=== PATIENT | female | born 1950 | race Caucasian/White ===

== ENCOUNTER 2016-09-09 13:11 | Emergency (ER) | payer OTHER, MEDICARE ==
[~2016-09-09] VITALS: Ht 162.6 cm; Wt 80.3 kg
[~2016-09-09 13:11] MED LIST: AUBAGIO14 MG PO; CIPRO750 MG PO; ELIQUIS5 MG PO; LAMOTRIGINE200 MG PO; LEVOTHYROXIN0.137 MG PO; LITHIUM CARBON150 MG PO; LITHIUM CARBON300 M3 PO; LITHIUM CARBON300 MG PO; MIRALAX17 GM PO; MYCOSTATIN POWD15 GM TOP; PILOCARPINE HCL15 M1 OP; QUETIAPINE FUM100 MG PO; Senokot S PO
--- NOTE | 2016-09-09 15:21 | ED GENERAL ADULT ---
History of Present Illness General Chief Complaint: General Adult Stated Complaint: NAUSEA, SENT BY DR HALL FOR IV FLUIDS Source: patient, old records Exam Limitations: no limitations Allergies Coded Allergies: rituximab (From RITUXAN) (Intermediate, ANAPHYLAXIS 09/09/16) methylprednisolone (PER PT CANT TAKE MAKES HER MANIC 09/09/16) prednisone (PER PT CANT TAKE MAKES HER MANIC 09/09/16) Uncoded Allergies: STEROIDS (Intermediate, "MAKE ME MANIC" PER PT CAN NOT TAKE ANY STEROIDS ) Triage Note: TRIAGE: PT TO ER C/C SENT BY DR STACY HALL FOR EVAL R/T S/S OF CONFUSION AND BLURRY VISION. REPORTS HAD LITHIUM LEVELS CHECKED OUTPATIENT THROUGH [facility] AND LEVEL WAS 1.6. Triage Nurses Notes Reviewed? yes HPI: Patient is a 66 year old female sent in from by her psychiatrist for evaluation of elevated [place] level. Patient had blood work this morning which showed a lithium level of 1.6 and a creatinine of 1.6. Patient was sent to the emergency department for further evaluation. Patient reports she has been taking her lithium as directed. For the past one month patient has been feeling some generalized malaise and intermittent headaches. Patient has been eating and drinking normal. Positive depression, no suicidal ideation. Denies chest pain, difficulty breathing, nausea, vomiting, diarrhea (MELLO ARROYO) Vital Signs & Intake/Output Vital Signs & Intake/Output Vital Signs Date Time Temp Pulse Resp B/P Pulse O2 O2 Flow FiO2 Ox Delivery Rate 09/09 1815 99 09/09 1720 97.2 69 16 157/80 99 Room Air 09/09 1539 97.3 70 20 146/76 100 Room Air 09/09 1324 98.4 67 20 135/86 99 Room Air Reconcile Medications Apixaban (Eliquis) 5 MG TABLET 1 TAB PO BID BLOOD THINNER (Reported) Calcitriol 0.25 MCG CAPSULE 2 CAP PO BID VITAMIN D (Reported) Ergocalciferol (Vitamin D2) (Vitamin D2) 50,000 UNIT CAPSULE 1 CAP PO QTUES SUPPLEMENT (Reported) Lamotrigine 200 MG TABLET 1 TAB PO QHS MENTAL HEALTH (Reported) Levothyroxine Sodium 125 MCG TABLET 1 TAB PO DAILY THYROID (Reported) [place] Carbonate 150 MG CAPSULE 1 CAP PO QPM MENTAL HEALTH (Reported) [place] Carbonate 300 MG CAPSULE 600 MG PO QPM MENTAL HEALTH (Reported) Pilocarpine HCl 2 % DROPS 1 DROP OD TID RIGHT EYE - GLAUCOMA (Reported) Quetiapine Fumarate 100 MG TABLET 1 TAB PO QPM SLEEP/MENTAL HEALTH (Reported) (ELÍAS CESAR,SADIQ Salazar) Past History Travel History Traveled to [place] past 21 day No Medical History Any Pertinent Medical History? 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 History of MRSA: No History of VRE: No History of CDIFF: No Surgical History Surgical History: appendectomy, status post right talar bunionectomy and hammertoe correction of the right second toe 3 years prior to admission hip surgery Psychosocial History Who do you live with Spouse Services at Home None What is your primary language Monegasque Tobacco Use: Quit >30 days ago ETOH Use: occasional use Illicit Drug Use: denies illicit drug use Family History Family History, If Any: BROTHER FH myocardial infarction male first degree age known MOTHER FH: diabetes mellitus SISTER FH: leukemia SISTER Hx Contributory? No (MELLO ARROYO) Review of Systems Review of Systems Constitutional: Reports: malaise (x 1 month). Denies: chills, fever. EENTM: Reports: no symptoms. Respiratory: Denies: cough, short of breath. Cardiovascular: Denies: chest pain. GI: Reports: no symptoms. Genitourinary: Reports: no symptoms. Musculoskeletal: Denies: back pain, neck pain. Skin: Reports: no symptoms. Neurological/Psychological: Reports: headache. Hematologic/Endocrine: Denies: bruising, bleeding. Immunologic/Allergic: Denies: splenectomy. (MELLO ARROYO) Physical Exam Physical Exam General Appearance: well developed/nourished, alert, awake Head: atraumatic, normal appearance Eyes: Bilateral: normal appearance, PERRL, EOMI. Ears, Nose, Throat: normal pharynx, normal ENT inspection, hearing grossly normal Neck: normal inspection, supple, full range of motion Respiratory: normal breath sounds, chest non-tender, no respiratory distress, lungs clear Cardiovascular: regular rate/rhythm Gastrointestinal: soft, non-tender Back: normal inspection, normal range of motion Extremities: normal inspection, normal capillary refill, normal range of motion, no edema Neurologic/Psych: awake, alert, oriented x 3, flat affect, no suicidal ideation Skin: intact, normal color, warm/dry Lymphatic: no anterior cervical fermin Core Measures ACS in differential dx? No CVA/TIA Diagnosis: No Severe Sepsis Present: No Septic Shock Present: No (MELLO ARROYO) Progress Differential Diagnoses I considered the following diagnoses in my evaluation of the patient: [place] toxicity, acute kidney injury, electrolyte abnormality Initial ED EKG: none (MELLO ARROYO) Plan of Care: Orders Procedure Date/time Status Regular Diet 09/09 D Active EKG 09/09 1730 Active URINALYSIS 09/09 1455 Complete LITHIUM 09/09 1443 Complete COMPREHENSIVE METABOLIC PANEL 09/09 1443 Complete CBC WITHOUT DIFFERENTIAL 09/09 1443 Complete Laboratory Tests 09/09/16 1706: Anion Gap 9, Estimated GFR 35 L, BUN/Creatinine Ratio 15.3, Glucose 79, Calcium 10.0, Total Bilirubin 0.6, AST 27, ALT 27, Alkaline Phosphatase 64, Total Protein 7.6, Albumin 4.2, Globulin 3.4, Albumin/Globulin Ratio 1.2, [place] 1.4 *H 09/09/16 1605: CBC w Diff NO MAN DIFF REQ, RBC 3.89 L, MCV 88.9, MCH 29.6, RDW 14.9 H, MPV 9.7, Gran % 62.2, Lymphocytes % 23.9, Monocytes % 8.4, Eosinophils % 4.7, Basophils % 0.8, Absolute Granulocytes 4.3, Absolute Lymphocytes 1.6, Absolute Monocytes 0.6, Absolute Eosinophils 0.3, Absolute Basophils 0.1, PUBS MCHC 33.3 09/09/16 1517: Urine Color YEL, Urine Clarity CLEAR, Urine pH 7.0, Ur Specific [place] <= 1.005 , Urine Protein NEG, Urine Ketones NEG, Urine Nitrite NEG, Urine Bilirubin NEG, Urine Urobilinogen 0.2, Ur Leukocyte Esterase TRACE H, Ur Microscopic SEDIMENT EXAMINED, Urine RBC RARE, Urine WBC RARE, Ur Epithelial Cells RARE, Urine Hemoglobin NEG, Urine Glucose NEG Patient had blood work at 7 AM showing lithium level of 1.6 and creatinine of 1.8. Repeat labs performed, lithium level improved to 1.4 and creatinine improved to 1.5. Patient was discussed with and seen by Dr. Odonnell. Patient appears stable for discharge. Patient instructed to not take her lithium this evening and to contact her psychiatrist tomorrow for further dosing instructions. Patient also instructed to follow-up with her primary care doctor for further evaluation. (MELLO ARROYO) Departure Departure Disposition: HOME OR SELF CARE Condition: Stable Clinical Impression Primary Impression: Acute kidney injury Secondary Impressions: [place] toxicity Referrals: MELLO NORTON MD (PCP/Family) Additional Instructions: Follow-up with your primary care doctor and your psychiatrist for further evaluation. Do not take your dose of lithium this evening. Contact your psychiatrist tomorrow morning for further dosing instructions. Call your primary doctor tomorrow to be seen within one week for further evaluation. Return to the emergency department if any worsening of symptoms. Departure Forms: Customer Survey General Discharge Information (MELLO ARROYO) PA/FLAME PLANER Co-Sign Statement Statement: ED Attending supervision documentation- [x] I saw and evaluated the patient. I have also reviewed all the pertinent lab results and diagnostic results. I agree with the findings and the plan of care as documented in the PA's/FLAME PLANER's documentation. [] I have reviewed the ED Record and agree with the PA's/FLAME PLANER's documentation. [] Additions or exceptions (if any) to the PAs/FLAME PLANER's note and plan are summarized below: [] (ELÍAS CESAR,SADIQ Salazar) Critical Care Note Critical Care Note Critical Care Time: non-applicable (MELLO ARROYO)
[2016-09-09] MEDS ORDERED: LEVOTHYROXINE125 MCG PO (15:35)
[2016-09-09] MEDS ORDERED: CALCITRIOL0.25 MC1 PO (15:36)
[2016-09-09] MEDS ORDERED: VITAMIN D250000 UNIT PO (15:36)
[2016-09-09] MEDS ORDERED: LITHIUM CARBON150 M1 PO (15:37)
[2016-09-09] MEDS ORDERED: LAMOTRIGINE200 M2 PO (15:38)
[2016-09-09] MEDS ORDERED: QUETIAPINE FUM100 M1 PO (15:38)
[2016-09-09] MEDS ORDERED: LITHIUM CARBON300 M4 PO (15:38)
[2016-09-09] MEDS ORDERED: ELIQUIS5 M1 PO (15:39)
[2016-09-09] MEDS ORDERED: PILOCARPINE HCL15 M3 OD (15:46)
[2016-09-09 16:29] LABS: ABSOLUTE BASOPHIL COUNT 0.1 /CUMM (0.0-0.2); ABSOLUTE EOSINOPHIL COUNT 0.3 /CUMM (0.0-0.7); ABSOLUTE GRANULOCYTE CT 4.3 /CUMM (1.4-6.5); ABSOLUTE LYMPH COUNT 1.6 /CUMM (1.2-3.4); ABSOLUTE MONOCYTE COUNT 0.6 /CUMM (0.10-0.60); BASOPHIL % 0.8 % (0.0-2.0); EOSINOPHIL % 4.7 % (0-5); GRANULOCYTE % 62.2 % (42.2-75.2); HEMATOCRIT 34.6 % (37-47); MEAN CORPUSCULAR HGB 29.6 PG (27.0-31.0); MEAN CORPUSCULAR HGB CONC 33.3 G/DL (33.0-37.0); MEAN CORPUSCULAR VOLUME 88.9 FL (81.0-99.0); MEAN PLATELET VOLUME 9.7 FL (7.4-10.4); PLATELET COUNT 367 /CUMM (130-400); RBC DISTRIBUTION WIDTH 14.9 % (11.5-14.5); RED BLOOD CELL CT 3.89 /CUMM (4.20-5.40); WHITE BLOOD CELL COUNT 6.9 /CUMM (4.8-10.8)
[2016-09-09 18:03] LABS: LITHIUM 1.4 mmol/L (0.6-1.2)
[2016-09-09 19:13] VITALS: BP 145/78
== END 2016-09-09 19:46 ==
LOC: ERH 13:11
PROVIDERS: Emergency Medicine
DX: T56.891A Toxic effect of other metals, accidental (unintentional), initial encounter (principal); N17.9 Acute kidney failure, unspecified; E03.9 Hypothyroidism, unspecified
CPT/HCPCS: 36415; 81001; 93325; 96360; 96361

== ENCOUNTER 2016-10-09 10:15 | Inpatient (IN) | payer OTHER, MEDICARE ==
[~2016-10-09] VITALS: Ht 162.6 cm; Wt 78.9 kg
[~2016-10-09 10:15] MED LIST changes: +CALCITRIOL0.25 MC1 PO; +ELIQUIS5 M1 PO; +LAMOTRIGINE200 M2 PO; +LEVOTHYROXINE125 MCG PO; +LITHIUM CARBON150 M1 PO; +LITHIUM CARBON300 M4 PO; +PILOCARPINE HCL15 M3 OD; +QUETIAPINE FUM100 M1 PO; +VITAMIN D250000 UNIT PO
--- NOTE | 2016-10-09 10:20 | NUR ---
JHONY FROM HOME, PER EMS, CALLED 911, CONCERNED ABOUT 'S CHANGE IN MENTAL STATUS, WAS TALKING TO SON'S PICTURE THIS AM. PT IS ALERT, CRYING, HAS SON'S PICTURE WITH HER. STATES SHE WAS JUST PUT ON DEPAKOTE, TAKEN OFF LITHUM DUE TO STAGE 4 KIDNEY DISEASE.
--- NOTE | 2016-10-09 10:21 | NUR ---
C/O PAIN "ALL OVER", STATES SHE IS HAVING AN MS "FLARE UP". THINKS HER SON IS AN ALEKSANDER AND IS TALKING TO HER.
--- NOTE | 2016-10-09 10:29 | NUR ---
REPORTS THAT HIS HAS FALLEN MULTIPLE TIMES IN THE PAST WEEKS. STACY WINSTON ([facility]) IS PT'S COUNSELOR [phone].
--- NOTE | 2016-10-09 10:35 | NUR ---
MD ELÍAS LEE EVAL
--- NOTE | 2016-10-09 11:01 | ED PSYCHIATRIC COMPLAINT ---
History of Present Illness General Chief Complaint: General Adult Stated Complaint: BIBA FOR ?PSYCH ?AMS Source: patient, family Exam Limitations: PSYCHIATRIC CONDITION Vital Signs & Intake/Output Vital Signs & Intake/Output Vital Signs Date Time Temp Pulse Resp B/P Pulse O2 O2 Flow FiO2 Ox Delivery Rate 10/09 1444 97.8 78 18 166/80 96 Room Air 10/09 1320 97.0 84 20 114/71 10/09 1227 97.0 10/09 1128 97.0 78 18 145/77 96 Room Air 10/09 1100 99 Room Air 10/09 1023 96.0 77 18 155/85 98 Room Air 10/09 1022 95.0 81 18 155/85 95 Room Air Allergies Coded Allergies: rituximab (From RITUXAN) (Intermediate, ANAPHYLAXIS 09/09/16) methylprednisolone (PER PT CANT TAKE MAKES HER MANIC 09/09/16) prednisone (PER PT CANT TAKE MAKES HER MANIC 09/09/16) Uncoded Allergies: STEROIDS (Intermediate, "MAKE ME MANIC" PER PT CAN NOT TAKE ANY STEROIDS ) Reconcile Medications Apixaban (Eliquis) 5 MG TABLET 1 TAB PO BID BLOOD THINNER (Reported) Calcitriol 0.25 MCG CAPSULE 2 CAP PO BID VITAMIN D (Reported) Ergocalciferol (Vitamin D2) (Vitamin D2) 50,000 UNIT CAPSULE 1 CAP PO QTUES SUPPLEMENT (Reported) Lamotrigine 200 MG TABLET 1 TAB PO QHS MENTAL HEALTH (Reported) Levothyroxine Sodium 125 MCG TABLET 1 TAB PO DAILY THYROID (Reported) [place] Carbonate 150 MG CAPSULE 1 CAP PO QPM MENTAL HEALTH (Reported) [place] Carbonate 300 MG CAPSULE 600 MG PO QPM MENTAL HEALTH (Reported) Pilocarpine HCl 2 % DROPS 1 DROP OD TID RIGHT EYE - GLAUCOMA (Reported) Quetiapine Fumarate 100 MG TABLET 1 TAB PO QPM SLEEP/MENTAL HEALTH (Reported) Triage Note: BIBA FROM HOME, PER EMS, CALLED 911, CONCERNED ABOUT 'S CHANGE IN MENTAL STATUS, WAS TALKING TO SON'S PICTURE THIS AM. PT IS ALERT, CRYING, HAS SON'S PICTURE WITH HER. Triage Nurses Notes Reviewed? yes HPI: Patient presents for evaluation of altered mental status. The patient states that her symptoms are due to a multiple sclerosis flare up as a result of a fever and cold symptoms last weekend. Although the symptoms of her cold have gotten better she states that she is having an acute MS flare up. She has been having stumbling, weakness, numbness and trouble swallowing. In addition the patient states that she has been taken off of her lithium due to stage IV renal disease and was switched over to Depakote just recently. She states she now feels manic depressed and "up-and-down emotions". It appears that she has also communicating with her son. Her family is primarily concerned about her altered mental status and confusion. The states she is "not herself". Past History Travel History Traveled to [place] past 21 day No Medical History Any Pertinent Medical History? 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 History of MRSA: No History of VRE: No History of CDIFF: No Surgical History Surgical History: appendectomy, status post right talar bunionectomy and hammertoe correction of the right second toe 3 years prior to admission hip surgery PARATHYROID SURGERY Psychosocial History Who do you live with Spouse Services at Home None What is your primary language Greenlandic Tobacco Use: Quit >30 days ago ETOH Use: denies use Illicit Drug Use: denies illicit drug use Family History Family History, If Any: BROTHER FH myocardial infarction male first degree age known MOTHER FH: diabetes mellitus SISTER FH: leukemia SISTER Hx Contributory? No Review of Systems Review of Systems Constitutional: Reports: no symptoms. EENTM: Reports: no symptoms. Respiratory: Reports: no symptoms. Cardiovascular: Reports: no symptoms. GI: Reports: no symptoms. Genitourinary: Reports: no symptoms. Musculoskeletal: Reports: no symptoms. Skin: Reports: no symptoms. Neurological/Psychological: Reports: see HPI. Hematologic/Endocrine: Reports: no symptoms. Immunologic/Allergic: Reports: no symptoms. All Other Systems: Reviewed and Negative Physical Exam Physical Exam General Appearance: SEE BELOW Neurological/Psychiatric: SEE BELOW Comments: General: Alert, calm, inconsistently cooperative, answers questions briskly. Head: Normocephalic, atraumatic Eyes: Normal inspection, no nystagmus, EOMI Ears: Normal inspection Nose: Normal inspection Throat: Moist mucosa Neck: Supple, no goiter Heart: Regular rate and rhythm, no murmurs rubs or gallops Lungs: Clear to auscultation bilaterally with good air entry Abdomen: Soft nontender nondistended, normal bowel sounds Chest: Nontender Extremities: Normal range of motion grossly, no tremors present, no cyanosis clubbing or edema of the upper extremities, weakness of left upper extremity ( patient states she can't grasp with left hand) and bilateral lower extremities ( patient states she is cannot dorsiflex either extremity). Exam limited due to the patient's increasing frustration with examination. Neurologic: cranial nerves II through XII grossly intact, speech clear, gait not assessed Psychiatric: No apparent delusions or hallucinations, no pressured speech or thought blocking During history and physical examination patient became increasingly frustrated stating that Bartolo (her son) felt that her physician (myself) was being rude. She became resistant to evaluation at that point. SAD PERSONS Done? patient not suicidal Progress Differential Diagnosis: BIPOLAR DISORDER, HYPER OR HYPOTHYROIDISM, ELECTROLYTE ABNORMALITY Plan of Care: Orders Procedure Date/time Status Regular Diet 10/09 D Active Admit to inpatient psych 10/09 1611 Active PARATHYROID HORMONE 10/09 1333 Complete URINE DRUG SCREEN FOR ER ONLY 10/09 1228 Complete URINALYSIS 10/09 1228 Complete Add-on Test (ER Only) 10/09 1055 Active Patient Safety Monitor 10/09 1055 Active ED CRISIS PSYCH CONSULT 10/09 1055 Active THYROID STIMULATING HORMONE 10/09 1041 Complete PHOSPHORUS 10/09 1041 Complete MAGNESIUM 10/09 1041 Complete LITHIUM 10/09 1041 Complete FREE T4 10/09 1041 Complete DEPAKOTE LEVEL 10/09 1041 Complete COMPREHENSIVE METABOLIC PANEL 10/09 1041 Complete CBC WITHOUT DIFFERENTIAL 10/09 1041 Complete Laboratory Tests 10/09/16 1441: PTH Intact 14.6 10/09/16 1225: Urine Opiates Screen < 100.00, Methadone Screen < 40, Barbiturate Screen < 60, Ur Phencyclidine Scrn < 6.00, Amphetamines Screen < 100, U Benzodiazepines Scrn < 85, Urine Cocaine Screen < 50, Urine Cannabis Screen < 5.00, Urine Color YEL, Urine Clarity CLEAR, Urine pH 6.5, Ur Specific [place] <= 1.005, Urine Protein NEG, Urine Ketones NEG, Urine Nitrite NEG, Urine Bilirubin NEG, Urine Urobilinogen 0.2, Ur Leukocyte Esterase NEG, Ur Microscopic EXAM NOT REQUIRED, Urine Hemoglobin NEG, Urine Glucose NEG 10/09/16 1041: Anion Gap 11, Estimated GFR 50 L, BUN/Creatinine Ratio 11.8, Glucose 81, Calcium 8.6, Phosphorus 4.3, Magnesium 1.9, Total Bilirubin 0.5, AST 37 H, ALT 39, Alkaline Phosphatase 52, Total Protein 7.0, Albumin 3.9, Globulin 3.1, Albumin/Globulin Ratio 1.3, TSH 0.983, Free T4 1.88, CBC w Diff NO MAN DIFF REQ, RBC 4.28, MCV 86.4, MCH 29.3, RDW 14.1, MPV 9.1, Gran % 54.9, Lymphocytes % 32.3 , Monocytes % 7.5, Eosinophils % 5.0, Basophils % 0.3, Absolute Granulocytes 1.7 , Absolute Lymphocytes 1.0 L, Absolute Monocytes 0.2, Absolute Eosinophils 0.2, Absolute Basophils 0, PUBS MCHC 33.9, Valproic Acid 30.6 L, [place] < 0.2 L Diagnostic Imaging: Discussed w/RAD: Radiology Read. CXR Impression: PATIENT: STACY GIBBS PRESENT AGE: 66 PATIENT ACCOUNT NO: [id number] : 50 LOCATION: [facility] ORDERING PHYSICIAN: SADIQ MCKINLEY MD SERVICE DATE: 10/09/16 EXAM TYPE: RAD - XRY-PORTABLE CHEST XRAY EXAMINATION: XR PORTABLE CHEST CLINICAL INFORMATION: Cough. COMPARISON: 01/10/2015 TECHNIQUE: Portable AP view of the chest was obtained. FINDINGS: Lungs are symmetrically expanded and clear. No pulmonary consolidation or pleural effusion. Cardiac silhouette is normal in size. The mediastinal and hilar contours are normal. No acute skeletal findings. IMPRESSION: No evidence of pneumonia. No acute cardiopulmonary disease. DICTATED BY: JENNIFER RAY MD DATE/TIME DICTATED:10/09/161148 RECRUITING ASSISTANT:DANIELLA DATE/TIME TRANSCRIBED:10/09/161148 CONFIDENTIAL, DO NOT COPY WITHOUT APPROPRIATE AUTHORIZATION. <Electronically signed in Other Vendor System> SIGNED BY: JENNIFER RAY MD 10/09/16 1156 Departure Departure Disposition: STILL A PATIENT Condition: Stable Clinical Impression Primary Impression: Bipolar disorder with psychotic features Referrals: ERROL CESAR,MELLO Parson (PCP/Family) Departure Forms: Customer Survey General Discharge Information Psych Admission Note Psychiatric Admission: I have seen and evaluated STACY GIBBS. I have also reviewed all the pertinent lab results and diagnostic results. STACY GIBBS will be admitted to our inpatient Psychiatric unit for treatment and care.
[2016-10-09 11:06] LABS: ABSOLUTE BASOPHIL COUNT 0 /CUMM (0.0-0.2); ABSOLUTE EOSINOPHIL COUNT 0.2 /CUMM (0.0-0.7); ABSOLUTE GRANULOCYTE CT 1.7 /CUMM (1.4-6.5); ABSOLUTE MONOCYTE COUNT 0.2 /CUMM (0.10-0.60); BASOPHIL % 0.3 % (0.0-2.0); GRANULOCYTE % 54.9 % (42.2-75.2); MEAN CORPUSCULAR HGB 29.3 PG (27.0-31.0); MEAN CORPUSCULAR HGB CONC 33.9 G/DL (33.0-37.0); MEAN CORPUSCULAR VOLUME 86.4 FL (81.0-99.0); MEAN PLATELET VOLUME 9.1 FL (7.4-10.4); RBC DISTRIBUTION WIDTH 14.1 % (11.5-14.5); RED BLOOD CELL CT 4.28 /CUMM (4.20-5.40)
[2016-10-09 11:16] LABS: LITHIUM < 0.2 mmol/L (0.6-1.2)
[2016-10-09 11:19] LABS: PLATELET COUNT 226 /CUMM (130-400); WHITE BLOOD CELL COUNT 3.6 /CUMM (4.8-10.8)
--- NOTE | 2016-10-09 11:23 | NUR ---
PT REQUESTING EVAL FOR "MY COLD". CONGESTED COUGH NOTED. DR MCKINLEY INFORMED OF SAME AND STATES HE WILL ORDER CHEST XRAY
--- NOTE | 2016-10-09 11:24 | NUR ---
LAB CALLED STATING NOT ENOUGH BLOOD IN LAV TO RUN PTH LEVEL DR MCKINLEY INFORMED - NO NEED TO REDRAW TUBE AT THIS TIME
--- NOTE | 2016-10-09 11:49 | NUR ---
XRAY AT THE BEDSIDE
--- NOTE | 2016-10-09 11:56 | RADIOLOGY REPORT ---
EXAMINATION: XR PORTABLE CHEST CLINICAL INFORMATION: Cough. COMPARISON: 01/10/2015 TECHNIQUE: Portable AP view of the chest was obtained. FINDINGS: Lungs are symmetrically expanded and clear. No pulmonary consolidation or pleural effusion. Cardiac silhouette is normal in size. The mediastinal and hilar contours are normal. No acute skeletal findings. IMPRESSION: No evidence of pneumonia. No acute cardiopulmonary disease.
--- NOTE | 2016-10-09 12:05 | NUR ---
PT C/O HEADACHE. DR MCKINLEY INFORMED
--- NOTE | 2016-10-09 12:28 | NUR ---
MEDICATED WITH TYLENOL (SEE MAR)
--- NOTE | 2016-10-09 13:53 | NUR ---
CLEARED FOR CRISIS PER
--- NOTE | 2016-10-09 13:59 | NUR ---
SHEREE DONE PER REQUEST OF CRISIS, RESULT 0, CRISIS INFORMED.
--- NOTE | 2016-10-09 14:39 | ED PSYCH CRISIS CONSULTATION ---
Crisis Consult Basic Assessment Date of Consult: 10/09/16 Responsible Person/Accompanied By: Myke- and Myke - son Insurance Authorization: Insurance #1: Insurance name: MEDICARE A Phone number: Policy number: [id number] Group number: Authorization number: ED Provider: Patient's ED Provider: SADIQ MCKINLEY MD Primary Care Physician: Patient's PCP: MELLO NORTON MD. PCP's Current Psychiatrist: Rand Kilpatrick APRN Chief Complaint: General Adult Patient's Quote: "I am not a crazy person." Present Illness: Pt is 66 yo female BIBA for increase in manic symptoms and responding to internal stimuli ( + AH). She was referred to the ED by her [facility] presciber vie telephone. Pt presented as cooperative and insightful at times into her manic episode during the crisis consultation. As the interview continued pt speech was pressured,tangential and disorganzied ( bizzare content in regards to her son speaking through her). Pt confirms she talks to her son but says this is nothing new. She said that her son was talking to her currently and knows he is sending her signs. Pt requested this telegraphic typewriter mechanic to " just wait you will see a lays potato chip bag on my tray." Pt stated the TV and monitior were turning on and off as this telegraphic typewriter mechanic left the room as a message from her son. She denies suicidal thoughts but discloses she is depressed as the aniversay of her son's was on 10/06. Pt's UTOX was negative for substances and urinalisys was negative for UTI. Pt does not want to be admitted to CPS. This telegraphic typewriter mechanic met face to face with pt's Myke, and son also named Myke: Both and son report their safety concerns for the pt . They stated this is not her baseline and her behaviors are extremely bizzare and out of character. Myke ( ) stated everything has changed since she was taken off [place] and feels the current medications are not keeping her stable. They stated she has progressively gotten worse and don't feel she is safe to return home at this time. Per collateral note with Rand Kilpatrick APRN : AC Gordillo reports recent medication changes due to medical reasons and her recent manic symptoms have been out of character such as carrying around a picture of her son and talking to it. Pt has been responding to internal stimuli while talking to her prescriber over the phone. Per Rand's collateral with the sister: Phone call from sister, Sharon Azul, , there is no release, therefore this telegraphic typewriter mechanic only listened and did not provide information. She reports that client is in a manic episode this morning and she feels that client is hallucinating and in distress. Recommended calling 911 for urgent needs or bringing individual to ED for evaluation. Phone call to client, who gives this telegraphic typewriter mechanic permission to speak to both sister Sharon and [id number]-iaa Courtney. Client is in obvious distress, crying, with quick speech and some tangential thoughts. She reports she is home alone and this is upsetting. She states she wants her son, Myke. She reports that her son, Bartolo is speaking to her, and she verbalizes his words to her on the phone to this telegraphic typewriter mechanic (things such as, "calm down mommy", "tell Rand [this telegraphic typewriter mechanic] what is going on with you momlester"). While this telegraphic typewriter mechanic was on the phone with client, son Myke arrived. This telegraphic typewriter mechanic spoke to Myke with client permission. He expresses concern for his mother's safety. This telegraphic typewriter mechanic stated she needed to be evaluated and asked if he could bring her to the ED. He reports he is unsure he could bring her but he will call 911 and stay with her until they arrive. Spoke to client, informed her that the EMS were coming and she would go to the hospital by ambulance. She is agreeable. Phone call from [id number] Courtney who expresses concern for client. Informed her that 911 was called and client was being brought to the hospital. Medication List Current Psychiatric Med(s): 1. Depakote ER 250mg QHS 2. Seroquel 100mg 2 PO QHS 3. Lamictal 200mg daily This telegraphic typewriter mechanic consulted with Dr. Pringle and recommends inpatient admission for safety and mood stabilization. Patient's Address: [address] [place] [address] Other Phone Number: Who Do You Live With? Spouse Family/Informants Interviewed: Myke- and Myke-son Allergies - Coded Allergies: rituximab (From RITUXAN) (Intermediate, ANAPHYLAXIS 09/09/16) methylprednisolone (PER PT CANT TAKE MAKES HER MANIC 09/09/16) prednisone (PER PT CANT TAKE MAKES HER MANIC 09/09/16) Uncoded Allergies: STEROIDS (Intermediate, "MAKE ME MANIC" PER PT CAN NOT TAKE ANY STEROIDS ) Current Medications - Scheduled Medications Apixaban (Eliquis) 5 MG TABLET 1 TAB PO BID BLOOD THINNER #180 (Reported) Entered as Reported by NESTOR QUIROZ on 09/09/16 1539 Calcitriol 0.25 MCG CAPSULE 2 CAP PO BID VITAMIN D #360 (Reported) Entered as Reported by NESTOR QUIROZ on 09/09/16 1536 Ergocalciferol (Vitamin D2) (Vitamin D2) 50,000 UNIT CAPSULE 1 CAP PO QTUES SUPPLEMENT #12 (Reported) Entered as Reported by NESTOR QUIROZ on 09/09/16 1536 Lamotrigine 200 MG TABLET 1 TAB PO QHS MENTAL HEALTH #30 (Reported) Entered as Reported by NESTOR QUIROZ on 09/09/16 1538 Levothyroxine Sodium 125 MCG TABLET 1 TAB PO DAILY THYROID #90 (Reported) Entered as Reported by NESTOR QUIROZ on 09/09/16 1535 [place] Carbonate 150 MG CAPSULE 1 CAP PO QPM MENTAL HEALTH #30 (Reported) Entered as Reported by NESTOR QUIROZ on 09/09/16 1537 [place] Carbonate 300 MG CAPSULE 600 MG PO QPM MENTAL HEALTH #60 (Reported) Entered as Reported by NESTOR QUIROZ on 09/09/16 1538 Pilocarpine HCl 2 % DROPS 1 DROP OD TID RIGHT EYE - GLAUCOMA #15 (Reported) Entered as Reported by NESTOR QUIROZ on 09/09/16 1546 Quetiapine Fumarate 100 MG TABLET 1 TAB PO QPM SLEEP/MENTAL HEALTH #30 ( Reported) Entered as Reported by NESTOR QUIROZ on 09/09/16 1538 Laboratory Results: Laboratory Tests 10/09/16 1225: Urine Opiates Screen < 100.00, Methadone Screen < 40, Barbiturate Screen < 60, Ur Phencyclidine Scrn < 6.00, Amphetamines Screen < 100, U Benzodiazepines Scrn < 85, Urine Cocaine Screen < 50, Urine Cannabis Screen < 5.00, Urine Color YEL, Urine Clarity CLEAR, Urine pH 6.5, Ur Specific [place] <= 1.005, Urine Protein NEG, Urine Ketones NEG, Urine Nitrite NEG, Urine Bilirubin NEG, Urine Urobilinogen 0.2, Ur Leukocyte Esterase NEG, Ur Microscopic EXAM NOT REQUIRED, Urine Hemoglobin NEG, Urine Glucose NEG 10/09/16 1041: Anion Gap 11, Estimated GFR 50 L, BUN/Creatinine Ratio 11.8, Glucose 81, Calcium 8.6, Phosphorus 4.3, Magnesium 1.9, Total Bilirubin 0.5, AST 37 H, ALT 39, Alkaline Phosphatase 52, Total Protein 7.0, Albumin 3.9, Globulin 3.1, Albumin/Globulin Ratio 1.3, TSH 0.983, Free T4 1.88, CBC w Diff NO MAN DIFF REQ, RBC 4.28, MCV 86.4, MCH 29.3, RDW 14.1, MPV 9.1, Gran % 54.9, Lymphocytes % 32.3 , Monocytes % 7.5, Eosinophils % 5.0, Basophils % 0.3, Absolute Granulocytes 1.7 , Absolute Lymphocytes 1.0 L, Absolute Monocytes 0.2, Absolute Eosinophils 0.2, Absolute Basophils 0, PUBS MCHC 33.9, Valproic Acid 30.6 L, [place] < 0.2 L Past History Past Medical History Neurological: multiple sclerosis EENT: cataracts, glaucoma Cardiovascular: NONE Respiratory: NONE Gastrointestinal: NONE Hepatic: NONE Renal: chronic kidney disease Musculoskeletal: NONE Psychiatric: bipolar disease Endocrine: hyperparathyroidism, hypothyroidism Blood Disorders: anemia 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 Physical Limitations (Interventions): no Psychiatric Treatment History Psych Treatment Psychiatric Treatment Yes Inpatient Treatment Yes Outpatient Treatment Yes Location of Treatment [facility] Reason for Treatment psych/mood stabilization Dates of Treatment 2013- present Response to Treatment fair Diagnosis by History: Bipolar II Substance Use/Abuse History Drug Use/Abuse Substances Used/Abused No Substance Abuse Treatment Substance Abuse Treatment Past Substance Abuse [place] No Comments: Pt denies substance abuse hx. Current Mental Status Mental Status Orientation: Confused Affect: Constricted, Depressed, Inappropriate, Labile, Manic, Sad Speech: Hyper-verbal, Perseveration, Pressured Neuro-vegetative: Energy Increased Appearance Appearance- Dress/Hygiene: Pt is dressed appropriately and well groomed. Behaviors Thought Process: Disorganized, Tangential Thought Content: Auditory Hallucinations, Delusions, Mormonism Memory: Impaired Insight: Fair SI/HI Risk Assessment Past Suicidal Ideation/Attempts Yes Current Suicidal Ideation/Att No Past Homicidal Ideation/Att: No Current Homicidal Ideation/Attempts No Degree of Intent: None Gravely Disabled: Inability Risk Factors: high anxiety/distress, SA/MH hospitalized Lethality Ratin PTSD Checklist PTSD Done? pt unable to participate ED Management Sitter: Yes Restraints: No DSM5/PS Stressors/Medical Prob Diagnosis' (DSM 5, Stressors, Medical): F 33.3 Bipolar II with psychosis medical: pt reports stage 4 liver failure Current GAF: 25 Departure Disposition Psych Medical Clearance Date: 10/09/16 Medically Cleared at: 1350 Time Started: 1350 Time Ended: 1450 Psychiatrist Consulted: Trent Pringle MD Date Disposition Established: 10/09/16 Time Disposition Established: 1500 Plan for Disposition - Modality: Inpatient Psychiatry Facility: [facility] Contact: CPS Rationale for Disposition: Pt presents with increase in angela and auditory hallucinations. Her thoughts are bizzare and disorganized. Pt to be admitted for mood stabilization and safety. Type of IP Admission: PEC Referrals ERROL CESAR,MELLO Parson (PCP/Family)
--- NOTE | 2016-10-09 15:01 | NUR ---
PT'S SON JESSICA BERNIE ABREU [phone] WOULD LIKE TO BE CALLED WITH UPDATES
--- NOTE | 2016-10-09 15:15 | NUR ---
ASSUMED CARE OF PT.
--- NOTE | 2016-10-09 15:17 | NUR ---
REPORT GIVEN TO KEYONNA ANTUNEZ
--- NOTE | 2016-10-09 15:27 | NUR ---
Crisis evaluated pt and consulted with Dr. Pringle. Pt meets criteria for involuntary admission to CPS.
--- NOTE | 2016-10-09 15:30 | NUR ---
PT AWAKE, ALERT, TEARFUL. PT TALKATIVE BUT NOT ALWAYS TELLING COHERENT STORY. STATES HER SON HAS BEEN TALKING TO HER. SON AND DTR IN LAW AT BEDSIDE, CONSOLING PT
--- NOTE | 2016-10-09 16:26 | NUR ---
PT WANDED. CHANGED INTO BLUE SCRUBS AND MOVED TO ROOM15. SON AND DTR IN LAW AT BEDSIDE. PT TEARFUL. DOES NOT WANT TO BE ADMITTED. GIVEN DINNER
[2016-10-09] MEDS ORDERED: DIVALPROEX SOD250 M3 PO (16:50)
[2016-10-09] MEDS ORDERED: AZITHROMYCIN250 M1 (16:51)
[2016-10-09] MEDS ORDERED: SERTRALINE HCL25 MG (16:52)
--- NOTE | 2016-10-09 16:57 | NUR ---
PT VERBALIZED UNDERSTANDING THAT SHE IS TO BE ADMITTED TO [facility]
--- NOTE | 2016-10-09 17:15 | IP CRISIS DIAG ASSESS PSYCH ---
Diagnostic Assessment Basic Assessment Insurance Authorization: Insurance #1: Insurance name: MEDICARE A Phone number: Policy number: [id number] Group number: Authorization number: [employer]ky QMB Primary Care Physician: Patient's PCP: MELLO NORTON MD PCP's Patient's Quote: "I am not a crazy person." Present Illness: Pt is 66 yo female BIBA for increase in manic symptoms and responding to internal stimuli ( + AH). She was referred to the ED by her [facility] presciber vie telephone. Pt presented as cooperative and insightful at times into her manic episode during the crisis consultation. As the interview continued pt speech was pressured,tangential and disorganzied ( bizzare content in regards to her son speaking through her). Pt confirms she talks to her son but says this is nothing new. She said that her son was talking to her currently and knows he is sending her signs. Pt requested this technical writer and editor to " just wait you will see a lays potato chip bag on my tray." Pt stated the TV and monitior were turning on and off as this technical writer and editor left the room as a message from her son. She denies suicidal thoughts but discloses she is depressed as the aniversay of her son's was on 10/06. Pt's UTOX was negative for substances and urinalisys was negative for UTI. Pt does not want to be admitted to CPS. This technical writer and editor met face to face with pt's Myke, and son also named Myke: Both and son report their safety concerns for the pt . They stated this is not her baseline and her behaviors are extremely bizzare and out of character. Myke ( ) stated everything has changed since she was taken off [place] and feels the current medications are not keeping her stable. They stated she has progressively gotten worse and don't feel she is safe to return home at this time. Per collateral note with Rand Kilpatrick APRN : AC Gordillo reports recent medication changes due to medical reasons and her recent manic symptoms have been out of character such as carrying around a picture of her son and talking to it. Pt has been responding to internal stimuli while talking to her prescriber over the phone. Per Rand's collateral with the sister: Phone call from sister, Sharon Azul, , there is no release, therefore this technical writer and editor only listened and did not provide information. She reports that client is in a manic episode this morning and she feels that client is hallucinating and in distress. Recommended calling 911 for urgent needs or bringing individual to ED for evaluation. Phone call to client, who gives this technical writer and editor permission to speak to both sister Sharon and [id number] Courtney. Client is in obvious distress, crying, with quick speech and some tangential thoughts. She reports she is home alone and this is upsetting. She states she wants her son, Myke. She reports that her son, Bartolo is speaking to her, and she verbalizes his words to her on the phone to this technical writer and editor (things such as, "calm down mommy", "tell Rand [this technical writer and editor] what is going on with you mommy"). While this technical writer and editor was on the phone with client, son Myke arrived. This technical writer and editor spoke to Myke with client permission. He expresses concern for his mother's safety. This technical writer and editor stated she needed to be evaluated and asked if he could bring her to the ED. He reports he is unsure he could bring her but he will call 911 and stay with her until they arrive. Spoke to client, informed her that the EMS were coming and she would go to the hospital by ambulance. She is agreeable. Phone call from [id number] Courtney who expresses concern for client. Informed her that 911 was called and client was being brought to the hospital. Medication List Current Psychiatric Med(s): 1. Depakote ER 250mg QHS 2. Seroquel 100mg 2 PO QHS 3. Lamictal 200mg daily This technical writer and editor consulted with Dr. Pringle and recommends inpatient admission for safety and mood stabilization. Patient's Address: [address] [place] [address] Other Phone Number: Who Do You Live With? Spouse Feel Safe Where You Live? Yes Feel Safe in Your Relationship Yes Marital Status: Do You Have Children? Yes Primary Language? Danish Language(s) Spoken At Home: Danish Family/Informants Interviewed: Myke- and Myke-son Allergies - Coded Allergies: rituximab (From RITUXAN) (Intermediate, ANAPHYLAXIS 09/09/16) methylprednisolone (PER PT CANT TAKE MAKES HER MANIC 09/09/16) prednisone (PER PT CANT TAKE MAKES HER MANIC 09/09/16) Uncoded Allergies: STEROIDS (Intermediate, "MAKE ME MANIC" PER PT CAN NOT TAKE ANY STEROIDS ) Current Medications - Scheduled Medications Apixaban (Eliquis) 5 MG TABLET 1 TAB PO BID BLOOD THINNER #180 (Reported) Entered as Reported by NESTOR QUIROZ on 09/09/16 1539 Last Taken: At an unknown date and time Calcitriol 0.25 MCG CAPSULE 2 CAP PO BID VITAMIN D #360 (Reported) Entered as Reported by NESTOR QUIROZ on 09/09/16 153 Divalproex Sodium (Divalproex Sodium ER) 250 MG TAB.ER.24H 1 TAB PO QHS BIPOLAR #30 (Reported) Entered as Reported by NESTOR QUIROZ on 10/09/16 1650 Ergocalciferol (Vitamin D2) (Vitamin D2) 50,000 UNIT CAPSULE 1 CAP PO QTUES SUPPLEMENT #12 (Reported) Entered as Reported by NESTOR QUIROZ on 09/09/16 1536 Lamotrigine 200 MG TABLET 1 TAB PO QHS BIPOLAR #30 (Reported) Entered as Reported by NESTOR QUIROZ on 09/09/16 1538 Levothyroxine Sodium 125 MCG TABLET 1 TAB PO DAILY THYROID #90 (Reported) Entered as Reported by NESTOR QUIROZ on 09/09/16 1535 [place] Carbonate 150 MG CAPSULE 1 CAP PO QPM MENTAL HEALTH #30 (Reported) Entered as Reported by NESTOR QUIROZ on 09/09/16 1537 Last Taken: 09/09/16 [place] Carbonate 300 MG CAPSULE 600 MG PO QPM MENTAL HEALTH #60 (Reported) Entered as Reported by NESTOR QUIROZ on 09/09/16 153 Last Taken: 09/09/16 Pilocarpine HCl 2 % DROPS 1 DROP OD TID RIGHT EYE - GLAUCOMA #15 (Reported) Entered as Reported by NESTOR QUIROZ on 09/09/16 1546 Quetiapine Fumarate 100 MG TABLET 2 TAB PO QPM SLEEP/BIPOLAR #30 (Reported) Entered as Reported by NESTOR QUIROZ on 09/09/16 1538 Miscellaneous Medications Azithromycin (Unknown Strength) TABLET (Unknown Dose) UNKNOWN #6 (Reported) Entered as Reported by NESTOR QUIROZ on 10/09/16 1651 Sertraline HCl (Unknown Strength) TABLET (Unknown Dose) UNKNOWN #30 (Reported ) Entered as Reported by NESTOR QUIROZ on 10/09/16 1652 Past History Past Medical History Medical History: Bleeding problems, MS Past Surgical History Surgical History appendectomy, cataract Removal, PARTIAL PARATHYROIDECTOMY R FOOT-BUNION & HAMMERTOE Abuse/Trauma History Trauma History/Current Trauma: unable to assess at this time Legal History Current Legal Status: none Psychosocial History Strengths/Capabilities: Pt is insightful at times regarding the need for medication evaluation and mood stabilization. Physical Limitations (Interventions): no Psychiatric Treatment History Psych Treatment Psychiatric Treatment Yes Inpatient Treatment Yes Outpatient Treatment Yes Location of Treatment [facility] Reason for Treatment psych/mood stabilization Dates of Treatment 2013- present Response to Treatment fair Diagnosis by History: Bipolar II Risk Factors: high anxiety/distress, SA/MH hospitalized Substance Use/Abuse History Drug Use/Abuse minimum 12mo Hx Substances Used/Abused No Substance Abuse Treatment Substance Abuse Treatment Past Substance Abuse [place] No Sexual History # of partners 1 Sexual Orientation Heterosexual Sexual Concerns: unable to assess Education History Highest Level of Education: not sure Preferred Learning Style: unable to assess Current Mental Status Mental Status Orientation: Confused Affect: Constricted, Depressed, Inappropriate, Labile, Manic, Sad Speech: Hyper-verbal, Perseveration, Pressured Neuro-vegetative: Energy Increased Appearance Appearance- Dress/Hygiene: Pt is dressed appropriately and well groomed. Behaviors Thought Process: Disorganized, Tangential Thought Content: Auditory Hallucinations, Delusions, Yarsanism Memory: Impaired Insight: Fair SI/HI Risk Assessment - Minimum 6mo History- Past Suicidal Ideation/Attempts Yes Current Suicidal Ideation/Att No Past Homicidal Ideation/Att: No Current Homicidal Ideation/Attempts No Degree of Intent: None Gravely Disabled: Inability Risk Factors: high anxiety/distress, SA/MH hospitalized Lethality Ratin Needs/Init [place] Plan/Goals: Mood stabilization and safety, medication evaluation, family meeting, group and individual therapy. AUDIT-C Questionnaire: AUDIT-C Questionnaire: Response Value ETOH use in the past year Never 0 # drinks typical/day Doesn't Drink 0 6 or > drinks per occasion Never 0 Total 0 DSM5/PS Stressors/Medical Prob Diagnosis' (DSM 5, Stressors, Medical): F 33.3 Bipolar II with psychosis medical: pt reports stage 4 liver failure Current GAF: 25
--- NOTE | 2016-10-09 17:46 | NUR ---
REPORT CALLED TO JANESSA LEONARDO RN. PT HAD NO VALUABLES LOCKED UP, ONLY CLOTHES. FAMILY TOOK CUSTODY OF PT JEWLERY AND OTHER VALUABLES
[2016-10-09 20:21] VITALS: BP 142/88
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
--- NOTE | 2016-10-10 00:51 | NUR ---
FINALLY FELL ASLEEP. HYPERVERBAL, PRESSURED AND DEMANDING UNTIL SHE FELL OFF TO SLEEP. APPEARS TO BE RESTING QUIETLY AT THIS TIME. SITTER MAINTAINED.
--- NOTE | 2016-10-10 02:07 | NUR ---
pT AWAKE ASKED FOR WATER, THEN COUGHED AND WAS INC OF URINE. UP TO BESIDE COMMODE, VOIDED qs. Then proceeded to tell us that now after sleeping approx. 21/2 hrs and being awake she will become manic. Instructed all staff not to engage pt. in conversation. Quiet at present. Muna care given, skin intact.
--- NOTE | 2016-10-10 04:14 | NUR ---
PT MEDICATED EARLIER WITH PRN (TRAZODONE AND SEROQUEL) WITH NO EFFECTIVE RESULTS NOTED. PT INSISTS ON DOING THINGS HER WAY, VERY PRESSURED, TALKING TO SON () TEARFUL, AND INC.
--- NOTE | 2016-10-10 04:49 | NUR ---
RESTLESS NIGHT, SLEPT APPROX. 3HRS . PRESSURED, RESTLESS, IRRITABLE AND HYPERVERBAL ALL NIGHT. PRN'S GIVEN PT FOUGHT MEDS. SITTER REMAINS WITH PT. INC OF URINE EVEN WITH TOILETING OFFERED QHOUR.
--- NOTE | 2016-10-10 06:19 | NUR ---
CONTINUES TO AWAKE OFF AND ON, REMAINS LABILE.
[2016-10-10 08:09] VITALS: BP 118/78
--- NOTE | 2016-10-10 10:44 | NUR ---
SPOKE WITH DR KATE LINO OFFICE REGARDING PTS STATEMENT THAT SHE IS NOT ON ELIQUIS ANYMORE. ACCORDING TO DR LIMA'S LAST PROGRESS NOTE OF 09/01/16 PT IS TO CONTINUE ELIQUIS 5MG 2 TIMES DAILY
--- NOTE | 2016-10-10 14:21 | NUR ---
Patient is very labile, agitated, hyperirritable and anxious,banging on the doors and very hyhpervarbal. Lorazepam 1 mg IM given on the Right deltoid. Patient is very resistive of the intervention but with the help of extra staff medication was given. 1:1 sitter maintains for safety.
--- NOTE | 2016-10-10 15:19 | Cons- Medical ---
General Information and HPI Consulting Request Date of Consult: 10/10/16 Requested By: KAREN CESAR,PAMELA Han Reason for Consult: Medical H&P Source of Information: patient, old records Exam Limitations: confusion History of Present Illness: 66-year-old female past medical history of multiple sclerosis she has been followed by Dr. Parker at the [facility] and at one point was on plasmapheresis via a proline. She was last admitted to the medical service here with sepsis with an infected proline and an intracardiac thrombus. She was on Eliquis and as per her she saw Dr. Solomon Hinojosa and after her last NUBIA she was taken off the Eliquis. She is not a very reliable informant. Periodically she is confused and starts talking about irelevant tangential things that don't exist. She denies chest pain, denies shortness of breath, denies nausea vomiting diarrhea. She says she is worried about walking with a walker and that she doesn't normally use a walker. Again she's not a reliable informant. Allergies/Medications Allergies: Coded Allergies: rituximab (From RITUXAN) (Intermediate, ANAPHYLAXIS 09/09/16) methylprednisolone (PER PT CANT TAKE MAKES HER MANIC 09/09/16) prednisone (PER PT CANT TAKE MAKES HER MANIC 09/09/16) Uncoded Allergies: STEROIDS (Intermediate, "MAKE ME MANIC" PER PT CAN NOT TAKE ANY STEROIDS ) Home Med List: Apixaban (Eliquis) 5 MG TABLET 1 TAB PO BID BLOOD THINNER (Reported) Azithromycin (Unknown Strength) TABLET (Unknown Dose) UNKNOWN (Reported) Calcitriol 0.25 MCG CAPSULE 2 CAP PO BID VITAMIN D (Reported) Divalproex Sodium (Divalproex Sodium ER) 250 MG TAB.ER.24H 1 TAB PO QHS BIPOLAR (Reported) Ergocalciferol (Vitamin D2) (Vitamin D2) 50,000 UNIT CAPSULE 1 CAP PO QTUES SUPPLEMENT (Reported) Lamotrigine 200 MG TABLET 1 TAB PO QHS BIPOLAR (Reported) Levothyroxine Sodium 125 MCG TABLET 1 TAB PO DAILY THYROID (Reported) Woodmore Carbonate 150 MG CAPSULE 1 CAP PO QPM MENTAL HEALTH (Reported) [place] Carbonate 300 MG CAPSULE 600 MG PO QPM MENTAL HEALTH (Reported) Pilocarpine HCl 2 % DROPS 1 DROP OD TID RIGHT EYE - GLAUCOMA (Reported) Quetiapine Fumarate 100 MG TABLET 2 TAB PO QPM SLEEP/BIPOLAR (Reported) Sertraline HCl (Unknown Strength) TABLET (Unknown Dose) UNKNOWN (Reported) Current Medications: Current Medications Sig/Doreen Start time Last Medication Dose Route Stop Time Status Admin Acetaminophen 650 MG Q6P PRN 10/10 1999 AC PO Al Hydroxide/Mg 30 ML Q4-6 PRN PRN 10/10 1999 AC Hydroxide PO Apixaban 5 MG BID 10/09 2199 AC PO Calcitriol 0.5 MCG BID 10/09 2199 AC 10/09 PO 221 Divalproex Sodium 750 MG 10/10 CAN PO Divalproex Sodium 500 MG AT BEDTIME 10/09 220 DC 10/09 PO 2213 Ergocalciferol 50,000 IU Q168 10/16 1000 AC PO Lamotrigine 200 MG AT BEDTIME 10/09 2199 AC 10/09 PO 2213 Levothyroxine Sodium 0.125 MG DAILY AC 10/10 0700 AC 10/10 PO 0648 Lorazepam 1 MG ONCE ONE 10/10 1445 DC IM 10/10 1446 Lorazepam 2 MG ONCE ONE 10/10 1415 DC PO 10/10 1416 Magnesium Hydroxide 30 ML AT BEDTIME PRN 10/10 1999 AC PO Pilocarpine 1 GTT TID 10/09 2199 AC 10/10 OPH 1348 Quetiapine Fumarate 200 MG AT BEDTIME 10/09 2199 AC 10/09 PO 2214 Quetiapine Fumarate 25 MG Q2P PRN 10/09 1845 AC 10/10 PO 0903 Trazodone HCl 50 MG AT BEDTIME NEED.. 10/09 2199 DC 10/10 PO 0238 Review of Systems Review of Systems Constitutional: Denies: no symptoms, chills, diaphoresis, fever. Cardiovascular: Denies: no symptoms, chest pain, orthopena. Respiratory: Denies: no symptoms, cough, hemoptysis. Musculoskeletal: Reports: no symptoms, joint pain, muscle stiffness. 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 Home Who Do You Live With? spouse Services at Home: None Smoking Status: Former Smoker ETOH Use: denies use Illicit Drug Use: denies illicit drug use Functional Ability ADLs Needs Assist: dressing, toileting. IADLs Unknown: shopping, housework, finances, food prep. Exam & Diagnostic Data Last 24 Hrs of Vital Signs/I&O Vital Signs Date Time Temp Pulse Resp B/P Pulse O2 O2 Flow FiO2 Ox Delivery Rate 10/10 08 96.8 95 118/78 10/09 2020 97.8 93 142/88 Intake & Output 10/10 1600 10/10 0800 10/10 0000 Intake Total Output Total Balance Patient 174 lb Weight Physical Exam General Appearance: no apparent distress, alert, awake, anxious Head: atraumatic, normal appearance Eyes: Bilateral: normal appearance, PERRL, EOMI. Ears, Nose, Throat: normal pharynx, normal ENT inspection Neck: normal inspection, supple Respiratory: normal breath sounds, chest non-tender, no respiratory distress Cardiovascular: regular rate/rhythm Gastrointestinal: normal bowel sounds, soft, non-tender, no organomegaly Neurologic/Psych: awake, alert Other Physical Findings: Very difficult to do a neurological exam on her. She won't cooperate and periodically stops and starts talking to the voices she's hearing. She uses a walker to ambulate, she got into the bed without difficulty. Cranial nerves are grossly intact but like I said my exam is very limited. Reflexes are 1+ and symmetric. There is no obvious pronator drift. Tone appears normal. Last 24 Hrs of Labs/Harry: Laboratory Tests 10/09 10/09 1441 1225 Chemistry PTH Intact (13.8 - 85 pg/ml) 14.6 Toxicology Urine Opiates Screen (>2000 NG/ML) < 100.00 Methadone Screen (>300 NG/ML) < 40 Barbiturate Screen (>200 NG/ML) < 60 Ur Phencyclidine Scrn (>25 NG/ML) < 6.00 Amphetamines Screen (>1000 NG/ML) < 100 U Benzodiazepines Scrn (>200 NG/ML) < 85 Urine Cocaine Screen (>300 NG/ML) < 50 Urine Cannabis Screen (>50 NG/ML) < 5.00 Urines Urine Color (YEL,AMB,STR) YEL Urine Clarity (CLEAR) CLEAR Urine pH (5.0 - 8.0) 6.5 Ur Specific Fulda (1.001 - 1.035) <= 1.005 Urine Protein (NEG,<30 MG/DL) NEG Urine Ketones (NEG) NEG Urine Nitrite (NEG) NEG Urine Bilirubin (NEG) NEG Urine Urobilinogen (0.1 - 1.0 EU/dl) 0.2 Ur Leukocyte Esterase (NEG) NEG Ur Microscopic EXAM NOT REQUIRED Urine Hemoglobin (NEG) NEG Urine Glucose (N MG/DL) NEG 10/09 1041 Chemistry Sodium (137 - 145 mmol/L) 141 Potassium (3.5 - 5.1 mmol/L) 4.3 Chloride (98 - 107 mmol/L) 104 Carbon Dioxide (22 - 30 mmol/L) 26 Anion Gap (5 - 16) 11 BUN (7 - 17 mg/dL) 13 Creatinine (0.5 - 1.0 mg/dL) 1.1 H Estimated GFR (>60 ml/min) 50 L BUN/Creatinine Ratio (7 - 25 %) 11.8 Glucose (65 - 99 mg/dL) 81 Calcium (8.4 - 10.2 mg/dL) 8.6 Phosphorus (2.5 - 4.5 mg/dL) 4.3 Magnesium (1.6 - 2.3 mg/dL) 1.9 Total Bilirubin (0.2 - 1.3 mg/dL) 0.5 AST (14 - 36 U/L) 37 H ALT (9 - 52 U/L) 39 Alkaline Phosphatase (<127 U/L) 52 Total Protein (6.3 - 8.2 g/dL) 7.0 Albumin (3.5 - 5.0 g/dL) 3.9 Globulin (1.9 - 4.2 gm/dL) 3.1 Albumin/Globulin Ratio (1.1 - 2.2 %) 1.3 TSH (0.270 - 4.200 uIU/mL) 0.983 Free T4 (0.78 - 2.44 ng/dL) 1.88 Hematology CBC w Diff NO MAN DIFF REQ WBC (4.8 - 10.8 /CUMM) 3.6 L RBC (4.20 - 5.40 /CUMM) 4.28 Hgb (12.0 - 16.0 G/DL) 12.5 Hct (37 - 47 %) 37.0 MCV (81.0 - 99.0 FL) 86.4 MCH (27.0 - 31.0 PG) 29.3 RDW (11.5 - 14.5 %) 14.1 Plt Count (130 - 400 /CUMM) 226 MPV (7.4 - 10.4 FL) 9.1 Gran % (42.2 - 75.2 %) 54.9 Lymphocytes % (20.5 - 51.1 %) 32.3 Monocytes % (1.7 - 9.3 %) 7.5 Eosinophils % (0 - 5 %) 5.0 Basophils % (0.0 - 2.0 %) 0.3 Absolute Granulocytes (1.4 - 6.5 /CUMM) 1.7 Absolute Lymphocytes (1.2 - 3.4 /CUMM) 1.0 L Absolute Monocytes (0.10 - 0.60 /CUMM) 0.2 Absolute Eosinophils (0.0 - 0.7 /CUMM) 0.2 Absolute Basophils (0.0 - 0.2 /CUMM) 0 PUBS MCHC (33.0 - 37.0 G/DL) 33.9 Toxicology Valproic Acid (50 - 120 ug/mL) 30.6 L Woodmore (0.6 - 1.2 mmol/L) < 0.2 L Assessment/Plan Assessment/Plan 66-year-old female underlying multiple sclerosis here with a psychotic episode from underlying bipolar disorder. I spoke to Dr. Solomon Hinojosa and confirmed that her last NUBIA was in fact negative and she doesn't need to be on Eliquis anymore. She does need outpatient follow-up for Silvio Parker MD once she is discharged from Inpatient Psychiatry for ongoing treatment of multiple sclerosis. I also put in a PT eval for her given her walking with the walker and difficulty with ambulation. Problem List: 1. Bipolar I disorder 2. Hypothyroidism Copies To: GASTON CESAR,SILVIO Campbell; CLARENCE CESAR,KATE Hanson Consult Acknowledgment - Thank you for your consult request.
--- NOTE | 2016-10-10 15:48 | SOCIAL WORKER PROG NOTE PSYCH ---
Social Work Progress Note Progress Note Patient was too psychotic to meet with today. Required an IM and has been in her room with a one on one. Social History could not be completed today.
--- NOTE | 2016-10-10 15:48 | SOCIAL WORKER TX PLAN PSYCH ---
Treatment Plan - Please Document: - Evidence that there is ongoing collaboration between - the patient and the interdisciplinary team, - including the patient's active participation and - responsibility for engaging in the treatment regimen, - and that the treatment plan is individualized and - relevant to the patient's conditions. - Treatment plan should reflect documentation indicating - that all active therapeutic efforts are included. Strengths/Capabilities: Pt is insightful at times regarding the need for medication evaluation and mood stabilization. Physical Limitations (Interventions): no Patient Identified Trmt Goals: To be able to leave the hospital Discharge Plan: IOP or outpatient services with [facility]. Problem/Goals #1 Problem #1: psychosis Goal (Short Term): Patient will be able to participate in conversations with social media job titles to complete social history and treatment plan Goal (Hat Cone Inspector): Patient will take medications as prescribed Interventions: patient will be offered medication management with the psychiatrist, patient will be encouraged and assisted by nursing staff to follow rules and to be safe on the unit. Warehouse Technician will coordinate family meeting. Assess psychosis, mood, and functioning daily. Warehouse Technician will assist in planning aftercare. Modalities: individual DSM5/PS Stressors/Medical Prob Diagnosis' (DSM 5, Stressors, Medical): F 33.3 Bipolar II with psychosis medical: pt reports stage 4 liver failure Current GAF: 25 Treatment Team - Responsibilities of members of the treatment team include: - Medication Management- MD or SUPPLY SERVICE WORKER - Medication Administration and Monitoring- Nurse - Group Therapy- Occupational Therapist - 1:1 Therapy,Disch Planning,family involvement-Warehouse Technician
[2016-10-10 15:56] VITALS: BP 113/78
--- NOTE | 2016-10-10 16:00 | CPS MD/APRN INITIAL ASSE PSYCH ---
Psychiatric Admission Nuclear Control Operator's Note Reviewed: Yes Patient Seen and Examined: Yes Identifying Information: This is only the 2nd [facility] admission since 2003 for a 66-year-old mother of an adult son, Myke (and another younger son, Bartolo, who on 10/06/2004 or 2005 at age 19), living with her spouse (also Myke) in [facility], and long disabled with Multiple Sclerosis. Chief Complaint: "I am not a crazy person!" Reaction to Hospitalization: ambivalent but agreeable History of Present Illness Onset of Illness: Patient had apparently begun to decompensate around the approaching anniversary of her son, Bartolo's (10/06). Circumstances Leading to Admission: Patient was recently taken off long-effective Canyondam prophylaxis due to apparently declining renal function. However, since then, by her own as well as her spouse's assessment she has not been doing well, in fact deteriorating steadily. Problem(s) Justifying Need for Admission: evolving manic psychotic episode in context of longstanding M.S. and possible "flair" of same Other HPI: Since discontinuation of Canyondam attempt has been made to introduce and titrate upwards Depakote but concentration on09/29/2016 was only 12.4 and at time of admission still only 30.6mcg/ml. Past Psychiatric History Past Diagnosis(es)- if any: Bipolar II Disorder (however, had been diagnosed with Bipolar I Disorder during initial [facility] admission in 2003) Multiple Sclerosis (with weakness of left leg; currently utilizing a walker or wheelchair) Stage III chronic renal failure Past Precipitating Factors- if any: flair-ups of M.S. complicated by intolerace to/allergy to I.V. steroids (and need for medical admissions for plasmaphoresis) had occurred around the time of patient's referral to [facility] in 2013 - Include inpatient and outpatient treatment Treatment History: patient had been referred to [facility] in 2013 and seen regularly since then first by Ritika Ramirez LCSW, and Dr. Pringle and then closely by Rand Kilpatrick APRN; this is her first [facility] admission since 2003 History of Suicide Attempts or Gestures denied Substance Abuse History: denied Allergies: Coded Allergies: rituximab (From RITUXAN) (Intermediate, ANAPHYLAXIS 09/09/16) methylprednisolone (PER PT CANT TAKE MAKES HER MANIC 09/09/16) prednisone (PER PT CANT TAKE MAKES HER MANIC 09/09/16) Uncoded Allergies: STEROIDS (Intermediate, "MAKE ME MANIC" PER PT CAN NOT TAKE ANY STEROIDS ) Home Med List: Depakote, 250mg HS Lamictal, 200mg HS (Canyondam carbonate, 450mg/day last prescribed as of 09/09/2016) Seroquel, 200mg HS Zoloft, 25mg (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) also: levothyroxine, 125mcg/day Eliquis, 5mg/day pilocarpine 2% drops, i drop OD TID R eye Calcitriol, 0.25mcg 2x/day Ergocalciferol (vitamin D2), 50,000 units daily Azithromycin (10/09/2016) - Include any medical condition(s) that may - impact the patient's recovery/remission Past History Medical History Neurological: multiple sclerosis EENT: cataracts, glaucoma Cardiovascular: NONE Respiratory: NONE Gastrointestinal: NONE Hepatic: NONE Renal: NONE (Stage III), chronic kidney disease Musculoskeletal: NONE Psychiatric: bipolar disease, psychosis Endocrine: hyperparathyroidism, hypothyroidism Blood Disorders: anemia Cancer(s): NONE 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 History of MRSA: No History of VRE: No History of CDIFF: No Isolation History: Standard Surgical History Surgical History: appendectomy, cataract Removal, PARTIAL [facility]ATH[facility]ROIDECTOMY [facility] Psychiatric Family/Social Hx Family History Psychiatric Illness: unknown Substance Use: unknown Suicides: unknown Other Family History: noncontributory Social History Living Situation: (see above under Identifiying Information) Significant Relationships (family/friends): close to , Myke and son, Myke; has had pathological grief (to the point of episodic psychotic behavioral regression) over the of younger son, Bartolo, at the age of 19 (currently actively "talking to/with" him) Education: noncontributory Vocation/Occupation: disabled Legal: denied Other Social History: noncontributory Healthly Behaviors Screening Tobacco Screening Tobacco Use from ED Docu: Quit >30 days ago - If tobacco counseling indicated - the following topics are required. - #1 Recognizing dangerous situations. - #2 Coping Skills. - #3 Basic information about quitting. Status of Tobacco Cessation Counseling: N/A B/C NO TOB USE Cessation Med Status: No Tobacco Use last 30d Alcohol Screening - ETOH screen POS if BAL >=80 or Audit-C>= M4/F3 Audit-C Score from Diag Assess: 0 (does not smoke cigarettes) Blood Alcohol Level: (no record of ANTONIETTA found in admission bloodwork) Alcohol Use Screening Results: Neg per Audit C &/or BAL - If ETOH counseling indicated - the following topics are required. - #1 Express concern about the patient's - drinking at unhealthy levels, include informing - of national norms for moderate drinking: - men <= 14 drinks/week, max 4 drinks/occasion - women <= 7 drinks/week, max 3 drinks/occasion - #2 Providing feedback, including linking alcohol to - negative physical effects (liver injury, hypertension) - negative emotional effects (relationship problems and - depression) - negative occupational consequences (reduced work - performance) - #3 Advising the patient to abstain from alcohol or - to drink below national norms for moderate drinking - (as listed above). Status of ETOH Use Counseling: N/A B/C NO ETOH Use Metabolic Screening - Screen if on a Neuroleptic Medication - Metabolic screening should include: - Blood Pressure, BMI, Glucose or Hgb A1c, & a - Lipid profile from within the past 365 days. Metabolic Screening () Not Applicable, patient not on a neuroleptic. OR ([X]) Patient on a neuroleptic(s) . Enter below results for Glucose or Hemoglobin A1C, and lipid panel if obtained during the last 365 days. BMI: 29.800 Blood Pressure: 122/88 Laboratory Results (If applicable): glucose = 81 () cholesterol = 191 (all on 06/25/2016) triglycerides = 99 HDL = 44 LDL = 128 Exam and Plan Mental Status Examination Ambulation Status: uses a walker or wheelchair at this time Appearance: mildly disheveled, infirmed Attitude towards examiner: ambivalent at first but more positive as interview progressed Psychomotor activity: reduced though some motor activity related to state of anxiety/turmoil Behavior: anxious, mildly hysterical/histrionic at times Quality of speech: tense, emphatic Affect: constricted, tense, worried Mood: labile, dysphoric Suicidal Ideation: denied Homicidal Ideation: denied Hallucinations: not clear; claimed to be talking to/with her long son, Bartolo; this appeared to be very reassuring to her at times; denied seeing him Paranoid/Delusional Material: convinced at the moment that she was sending and receiving messages (sometimes symbolic) from her son Bartolo--who from what she said to me was mostly being reassured by this "contact" Difficulties with thought organization: disorganized, disjointed to loose with occasional apparent flight of ideas Insight: lacking Judgment: impaired Orientation: aware of who and where she is Cognition: grossly impaired Memory Function: difficult to assess; apparently impaired Estimate of intellectual functioning: average Assets/Strengths Patient Identified Assets/Strengths: --love for and closeness to her family (especially to her son Bartolo) Impression/Plan Impression and Plan: Patient appears to be in a full manic psychotic episode contributed to by recent decision/need to come off long-effective Canyondam therapy in view of declining renal function and context of anniversary of narciso Mcfarland's on 10/06 ( over 10 years ago) and possible early flair-up of M.S. We will attempt to gain control over manic psychosis with combination of anti-psychotics and mood stabilizers. - Include all active medical diagnosis that require tx DSM 5 Diagnosis(es): Bipolar I Disorder, Manic, with Psychotic Features - Initial Tx Plan for Active Psych & Medical Conditions Treatment Plan: Initially, we will add low dose PRN Seroquel to regular HS dose and reintroduce a low dose of Canyondam at least acutely with further nephrologic consultation with regard to possible continuation of Canyondam at a small dose with close monitoring. I am concerned with the combined prescription of Lamictal and Depakote the latter risking potentially significant and precipitous increases in lamotrigine concentration which could precipitate desvastating Hansen-Renard Syndrome; therefore, and since valproic acid concentration is subtherapeutic I will discontinue the Depakote, likely increase dose of Lamictal slowly and consider Tegretol though must consider possible hematologic complications. Zoloft has been held; at this time it could only further exacerbate angela. We need to have a family meeting with patient, spouse asnd son, Myke, as soon as possible next week. - Factors that would help patient function - in a less restrictive setting. Factors: --good compliance with medication regimen and prompt and significant positive response to same in terms of containing and resolving manic psychosis --positive therapeutic effects from family meeting --stability of M.S. and renal function during episode
[2016-10-10 19:54] VITALS: BP 130/81
--- NOTE | 2016-10-10 21:59 | NUR ---
CONTINUES TO BE PRESSURED, DELUSIONAL AND DIFFICULT TO RE DIRECT. REFUSING MEDS ORDERED. LABILE.!!!!
--- NOTE | 2016-10-10 22:02 | NUR ---
BEHAVIOR CONTINUES. REFUSING MEDS AND PRNS. LABILE AND LOUD. VERY PRESSURED SITTER MAINTAINED
--- NOTE | 2016-10-10 22:18 | NUR ---
PT IS UPSET, YELLING AT STAFF, AND MOVING AROUND UNIT TALKING TO SELF LOUDLY. PT IS DELUSIONAL, THINKING HER SON IS WITH HER WHILE ON UNIT, AND APPEARS TO BE HALUCINATING, TALKING TO HERSELF AT TIMES. EXTREMELY DIFFICULT TO RE-DIRECT FROM BEHAVIOR. MOOD IS NOT STABLE, COMMUNCIATION IS HYPERVERBAL, TANGENTIAL, AND LOUD, PT EXPERIENCES DELUSIONS, AND APPETITE IS NORMAL. PT DENIES SI AT THIS TIME.
--- NOTE | 2016-10-11 00:37 | NUR ---
PT IS OUR OF CONTROL, LABILE CALLING FOR HER SON TO WATCH OVER AND PROTECT HER. REFUSING ALL MEDS P.O., PT APPEARS TORMENTED AND CAN NOT REST. TELLING ALL STAFF TO LEAVE HER ALONE BECAUSE "BLAKE WILL PROTECT ME". DR DUBON NOTIFIED OF THIS AND I/M ORDERS GIVEN. MEDS ADMINSITERED TO PT. PT VERY COMBATIVE AT FIRST BUT RELAXED AND ALLOWED MEDS TO BE GIVEN. SITTER IN PLACE AT ALL TIMES. PT NEEDS FIRM DIRECTION.
--- NOTE | 2016-10-11 01:58 | NUR ---
MEDICATION EFFECTIVE, PT SLEEPING QUIETLY WITH SITTER IN PLACE.
--- NOTE | 2016-10-11 03:58 | NUR ---
REMAINS ASLEEP AND QUIET, SITTER REMAINS IN PLACE.
--- NOTE | 2016-10-11 05:48 | NUR ---
1:1 OBSERVATION MAINTAINED SLEPT WELL OVERNIGHT AFTER RECIEVING I/M MEDICATION.
--- NOTE | 2016-10-11 05:54 | NUR ---
REMAINS ASLEEP, NO COMPLAINTS OFFERED
--- NOTE | 2016-10-11 13:21 | CP SOUTH PROGRESS NOTE PSYCH ---
Psych (Inpt) Progress Note Progress Note Include the following elements, when applicable: Involvement in the active treatment of the patient with behavioral observations of the patient and the patient's response to the treatment. Review of the ongoing treatment process in the context of the treatment plan. Indication of how multi-disciplinary staff members are carrying out the treatment plan. Plans for future interventions and recommendations for revision of the treatment plan. Liaison with other physicians/providers. Progress Note: Per RN report, "tortured with delusions this evening, labile, loud, pressured, demanding then refusing meds." Pt was given IM thorazine 50mg and ativan 1mg with good effect. Slept throughout the night. This morning, pt woke up, with continued delusions. Agreed to take medications, took thyroid medication, then refused other meds. Remains on 1:1. Given thorazine 25mg and ativan 0.5mg this morning, returned to sleep. Unable to ascertain the reason for intermittently refusing some meds. Current Medications Sig/Doreen Start time Last Medication Dose Route Stop Time Status Admin Acetaminophen 650 MG Q6P PRN 10/10 1999 AC PO Al Hydroxide/Mg 30 ML Q4-6 PRN PRN 10/10 1999 AC Hydroxide PO Apixaban 5 MG BID 10/09 2199 DC PO Calcitriol 0.5 MCG BID 10/09 2199 AC 10/10 PO 2149 Chlorpromazine 25 MG 0815 10/11 0815 DC 10/11 IM 10/11 0816 0820 Chlorpromazine 50 MG ONCE ONE 10/10 2351 CAN IM 10/11 2352 Chlorpromazine 50 MG ONCE ONE 10/10 2351 DC 10/11 IM 10/10 2352 0016 Diphenhydramine HCl 50 MG AT BEDTIME PRN 10/10 2315 AC PO Divalproex Sodium 750 MG 10/10 2000 CAN PO Divalproex Sodium 500 MG AT BEDTIME 10/09 220 DC 10/09 PO 2213 Ergocalciferol 50,000 IU Q168 10/16 1000 AC PO Lamotrigine 200 MG AT BEDTIME 10/09 2200 AC 10/10 PO 2150 Levothyroxine Sodium 0.125 MG DAILY AC 10/10 0700 AC 10/11 PO 0643 [place] Carbonate 150 MG 0800,1399,10/12 0800 AC PO [place] Carbonate 150 MG 0800,10/11 0800 AC PO 10/11 2000 [place] Carbonate 150 MG ONCE ONE 10/10 1915 DC 10/10 PO 10/10 1916 1939 Lorazepam 0.5 MG 0815 10/11 0815 DC 10/11 IM 10/11 0816 0820 Lorazepam 2 MG .STK-MED ONE 10/11 0005 DC IM 10/11 0006 Lorazepam 1 MG ONCE ONE 10/10 2351 DC 10/11 IM 10/10 2352 0017 Lorazepam 1 MG ONCE ONE 10/10 1445 DC 10/10 IM 10/10 1446 1420 Lorazepam 2 MG ONCE ONE 10/10 1415 DC PO 10/10 1416 Magnesium Hydroxide 30 ML AT BEDTIME PRN 10/10 1999 AC PO Olanzapine 5 MG Q6P PRN 10/10 2315 AC PO [place] 1 GTT TID 10/09 2200 AC 10/10 OPH 1735 Quetiapine Fumarate 200 MG AT BEDTIME 10/09 2200 AC 10/09 PO 2214 Quetiapine Fumarate 25 MG Q2P PRN 10/09 1845 AC 10/10 PO 0903 Trazodone HCl 50 MG AT BEDTIME NEED.. 10/10 2314 AC PO Trazodone HCl 50 MG AT BEDTIME NEED.. 10/09 220 DC 10/10 PO 0238 Laboratory Tests 10/09 10/09 1441 1225 Chemistry PTH Intact (13.8 - 85 pg/ml) 14.6 Toxicology Urine Opiates Screen (>2000 NG/ML) < 100.00 Methadone Screen (>300 NG/ML) < 40 Barbiturate Screen (>200 NG/ML) < 60 Ur Phencyclidine Scrn (>25 NG/ML) < 6.00 Amphetamines Screen (>1000 NG/ML) < 100 U Benzodiazepines Scrn (>200 NG/ML) < 85 Urine Cocaine Screen (>300 NG/ML) < 50 Urine Cannabis Screen (>50 NG/ML) < 5.00 Urines Urine Color (YEL,AMB,STR) YEL Urine Clarity (CLEAR) CLEAR Urine pH (5.0 - 8.0) 6.5 Ur Specific [place] (1.001 - 1.035) <= 1.005 Urine Protein (NEG,<30 MG/DL) NEG Urine Ketones (NEG) NEG Urine Nitrite (NEG) NEG Urine Bilirubin (NEG) NEG Urine Urobilinogen (0.1 - 1.0 EU/dl) 0.2 Ur Leukocyte Esterase (NEG) NEG Ur Microscopic EXAM NOT REQUIRED Urine Hemoglobin (NEG) NEG Urine Glucose (N MG/DL) NEG 10/09 1041 Chemistry Sodium (137 - 145 mmol/L) 141 Potassium (3.5 - 5.1 mmol/L) 4.3 Chloride (98 - 107 mmol/L) 104 Carbon Dioxide (22 - 30 mmol/L) 26 Anion Gap (5 - 16) 11 BUN (7 - 17 mg/dL) 13 Creatinine (0.5 - 1.0 mg/dL) 1.1 H Estimated GFR (>60 ml/min) 50 L BUN/Creatinine Ratio (7 - 25 %) 11.8 Glucose (65 - 99 mg/dL) 81 Calcium (8.4 - 10.2 mg/dL) 8.6 Phosphorus (2.5 - 4.5 mg/dL) 4.3 Magnesium (1.6 - 2.3 mg/dL) 1.9 Total Bilirubin (0.2 - 1.3 mg/dL) 0.5 AST (14 - 36 U/L) 37 H ALT (9 - 52 U/L) 39 Alkaline Phosphatase (<127 U/L) 52 Total Protein (6.3 - 8.2 g/dL) 7.0 Albumin (3.5 - 5.0 g/dL) 3.9 Globulin (1.9 - 4.2 gm/dL) 3.1 Albumin/Globulin Ratio (1.1 - 2.2 %) 1.3 TSH (0.270 - 4.200 uIU/mL) 0.983 Free T4 (0.78 - 2.44 ng/dL) 1.88 Hematology CBC w Diff NO MAN DIFF REQ WBC (4.8 - 10.8 /CUMM) 3.6 L RBC (4.20 - 5.40 /CUMM) 4.28 Hgb (12.0 - 16.0 G/DL) 12.5 Hct (37 - 47 %) 37.0 MCV (81.0 - 99.0 FL) 86.4 MCH (27.0 - 31.0 PG) 29.3 RDW (11.5 - 14.5 %) 14.1 Plt Count (130 - 400 /CUMM) 226 MPV (7.4 - 10.4 FL) 9.1 Gran % (42.2 - 75.2 %) 54.9 Lymphocytes % (20.5 - 51.1 %) 32.3 Monocytes % (1.7 - 9.3 %) 7.5 Eosinophils % (0 - 5 %) 5.0 Basophils % (0.0 - 2.0 %) 0.3 Absolute Granulocytes (1.4 - 6.5 /CUMM) 1.7 Absolute Lymphocytes (1.2 - 3.4 /CUMM) 1.0 L Absolute Monocytes (0.10 - 0.60 /CUMM) 0.2 Absolute Eosinophils (0.0 - 0.7 /CUMM) 0.2 Absolute Basophils (0.0 - 0.2 /CUMM) 0 PUBS MCHC (33.0 - 37.0 G/DL) 33.9 Toxicology Valproic Acid (50 - 120 ug/mL) 30.6 L [place] (0.6 - 1.2 mmol/L) < 0.2 L Vital Signs Date Time Temp Pulse Resp B/P Pulse O2 O2 Flow FiO2 Ox Delivery Rate 10/10 1953 97.2 98 130/81 10/10 1556 93 113/78 MSE Appears older than stated age, dishelved. Cooperative behavior generally, no appropriate eye contact. Pressured speech, with increased rate. + psychomotor agitation. Mood fine, fine Affect irritable, constricted, inappropriate, liable. Linear and goal directed thought process. Denies SI or HI. + appear to be responding to internal stimuli. Denies AVHs, paranoia, or delusions. I/J: very poor. A/P: Pt with bipolar disorder presenting mixed/manic state refusing meds (more often than nought) with intrusive behaviors. - Pt currently intermittently refusing meds - Pt has been getting thorazine IM intermittently, will switch to zyprexa IM, would prefer if taking PO zyprexa though refusing - Will closely monitor, on 1:1
--- NOTE | 2016-10-11 14:20 | NUR ---
Eval canceled today. Therapist attempted to see patient twice today but due to being medicated she was not up to participate in session. Will cont to follow in order to complete eval.
--- NOTE | 2016-10-11 14:24 | NUR ---
At around 0800 pt was in her room, only wearing a scrub t-shirt and was hyperverbal, loud, alternating between crying and yelling, demanding, unable to de-escalate verbally and redirect to calm/appropriate behaviors, delusional e.g., having a conversation with several family members and telling this telegraphic typewriter mechanic "I'm so sorry I missed your mothers wake, I didn't mean to" while sobbing. Pt then profusely refused PO meds and when handed the medication cup a second time, turned it upside down and dropped the pills in this RNs hand. Pt unable to understand behavior & lacked the ability or capacity to de-escalate therefore Dr. Bateman contacted and orders received for IM medication (Thorazine 25mg & Ativan 0.5mg) & tolerated well and met with + effect thus far AEB pt resting calmly since in bed with no other issues/complaints/uncontrolled behavior, 1:1 maintained for safety and fall risk. PT consult placed and therapist was on the unit twice however judgement call was made to let pt sleep & rest and they can re-attempt tomorrow.
--- NOTE | 2016-10-11 18:50 | NUR ---
TRIED TO GIVE MEDS, SPIT FIRST SEROQUEL INTO CUP. REFUSED ZYPREXA. AFTER MUCH GOING AROUND STATED SHE WOULD TAKE 25mg SEROQUEL WHICH SHE DID. A NEW BANDAID APPLIED TO RIGHT THUMB. FINGERNAL HAS A HOLE IN THE MEDIAL NAIL FOLD. BED OF INJURY IS BLACK IN COLOR.
[2016-10-11 19:28] VITALS: BP 122/88
--- NOTE | 2016-10-11 22:21 | NUR ---
PT CONTINUES ON 1:1. SHE HAS BEEN SLEEPING THE MAJORITY OF THE DAY. PT ALLOWED TO SLEEP THIS EVENING, MEDS BEING HELD UNTIL WHEN SHE AWAKENS.
--- NOTE | 2016-10-12 06:26 | NUR ---
PT REMAINS ON 1:1. PT TOOK LITHIUM, LAMICTALAND SEROQUEL LATE. PT UP FOR ONE HOUR [id number].
[2016-10-12 07:30] VITALS: BP 117/92
[2016-10-12 07:41] VITALS: BP 117/92
[2016-10-12 12:14] VITALS: BP 136/80
--- NOTE | 2016-10-12 12:42 | CP SOUTH PROGRESS NOTE PSYCH ---
Psych (Inpt) Progress Note Progress Note Include the following elements, when applicable: Involvement in the active treatment of the patient with behavioral observations of the patient and the patient's response to the treatment. Review of the ongoing treatment process in the context of the treatment plan. Indication of how multi-disciplinary staff members are carrying out the treatment plan. Plans for future interventions and recommendations for revision of the treatment plan. Liaison with other physicians/providers. Progress Note: Pt seen in room today. She was finishing lunch. She would prefer IM meds. When asked why, she would not specify, only to note that she "likes the pain" of the IM. She rambled about seroquel but unclear what she was speaking about. Denies SI or HI. Notes + AVHs. Current Medications Sig/Doreen Start time Last Medication Dose Route Stop Time Status Admin Acetaminophen 650 MG Q6P PRN 10/10 1999 AC PO Al Hydroxide/Mg 30 ML Q4-6 PRN PRN 10/10 1999 AC Hydroxide PO Calcitriol 0.5 MCG BID 10/09 2199 AC 10/12 PO 0908 Diphenhydramine HCl 50 MG AT BEDTIME PRN 10/10 2315 AC PO Ergocalciferol 50,000 IU Q168 10/16 1000 AC PO Lamotrigine 200 MG AT BEDTIME 10/09 2199 AC 10/12 PO 0142 Levothyroxine Sodium 0.125 MG DAILY AC 10/10 0700 AC 10/12 PO 0704 [place] Carbonate 150 MG 0800,1400,10/12 0800 AC 10/12 PO 0744 [place] Carbonate 150 MG 0800,10/11 0800 DC 10/12 PO 10/11 2000 0144 Magnesium Hydroxide 30 ML AT BEDTIME PRN 10/10 1999 AC PO Olanzapine 10 MG ONCE ONE 10/12 1200 DC 10/12 IM 10/12 1201 1158 Olanzapine 5 MG Q6P PRN 10/10 2314 AC PO [place]oc[place] 1 GTT TID 10/09 2199 AC 10/12 OPH 0908 Quetiapine Fumarate 200 MG AT BEDTIME 10/09 2200 AC 10/12 PO 0143 Quetiapine Fumarate 25 MG Q2P PRN 10/09 1845 AC 10/11 PO 1855 Trazodone HCl 50 MG AT BEDTIME NEED.. 10/10 2315 AC PO Laboratory Tests 10/09 1441 Chemistry PTH Intact (13.8 - 85 pg/ml) 14.6 Vital Signs Date Time Temp Pulse Resp B/P Pulse O2 O2 Flow FiO2 Ox Delivery Rate 10/12 1214 92 136/80 10/12 0741 96.1 92 117/92 10/12 0730 96.1 92 117/92 10/11 1928 96.4 98 122/88 MSE Appears older than stated age, dishelved. Cooperative behavior generally, no appropriate eye contact. Pressured speech, with increased rate. + psychomotor agitation. Mood OK....I think Affect irritable, constricted, inappropriate, liable. Linear and goal directed thought process. Denies SI or HI. + appear to be responding to internal stimuli. ++AVHs, denies paranoia, ++ delusions. I/J: very poor. A/P: Pt with bipolar disorder presenting mixed/manic state refusing meds (more often than nought) with intrusive behaviors. - Pt currently intermittently refusing meds, likes the seroquel and some lithium - Pt has been getting thorazine IM intermittently, switch to zyprexa IM, would prefer if taking PO zyprexa though refusing; recieved IM zyprexa 10mg within the last hour. - Will closely monitor, on 1:1
--- NOTE | 2016-10-12 13:34 | NUR ---
AT AROUND 1200PM PT WAS EXHIBITING AN INCREASE IN ANXIETY/AGITATION/LABILITY AND WAS MAKING COMMENTS TO STAFF THREATENING TO HIT THEM IF THEY DID NOT COMPLY WITH HER REQUESTS, ATTEMPTED TO DECREASE STIMULI, CONTINUOUSLY OFFER A VARIETY OF PO MEDICATION, VERBALLY DE-ESCALATE, TO NO AVAIL, PERSEVERATING WITH DELUSIONS, TANGENTIAL & PRESSURED THEREFORE DR. DUBON WAS ON THE UNIT AND WAS CONSULTED AND AT THAT TIME ZYPREXA 10MG IM ONE TIME DOSE WAS GIVEN AND PT RECEIVED DOSE & TOLERATED WELL AND SHORTLY AFTER WAS CALM & RESTING IN BED IN NO ACUTE DISTRESS, 1:1 MAINTAINED FOR SAFETY.
[2016-10-12 16:03] VITALS: BP 113/77
--- NOTE | 2016-10-12 20:55 | NUR ---
PATIENT HAS BEEN CONTINUALLY ANXIOUS, RESTLESS, AND PERIODICALLY YELLING SINCE MY ARRIVAL ON THE UNIT AT 1900. DR. DUBON CALLED AT 1999 AND AN ORDER FOR PO ATIVAN X1 WAS OBTAINED; PATIENT REFUSED THE MEDICATION; SHE HAS BEEN INCREASINGLY AGITATED, SITTING NAKED FROM THE WAIST DOWN AND REFUSING SCRUB PANTS; PATIENT YELLING DOWN THE HALLWAY, THROWING HER BED SHEETS ON THE FLOOR; DR. DUBON CALLED AGAIN AND AN ORDER FOR THORAZINE 50MG AND ATIVAN 1MG IM ONE TIME TO BE GIVEN.
--- NOTE | 2016-10-12 21:21 | NUR ---
IM MEDS GIVEN; PATIENT COMPLIANT BUT YELLING AT STAFF, BEING VERBALLY ABUSIVE TO HER SITTER, REFUSED TO ALLOW HER BED TO BE MADE, AGREED TO WEAR NET UNDERWEAR BUT STILL REFUSING HER SCRUB PANTS.
--- NOTE | 2016-10-12 21:35 | NUR ---
PATIENT CURRENTLY IN BATHROOM BRUSHING HER TEETH WITH 1:1 SITTER ASSISTANCE; PATIENT STILL IRRITABLE BUT NO LONGER YELLING; HOUSEKEEPING IS CURRENTLY MAKING HER BED AND THE PATIENT ALLOWED STAFF TO HELP HER PUT ON SCRUB PANTS.
--- NOTE | 2016-10-12 22:10 | NUR ---
PATIENT BEHAVIOR AGAIN ESCALATED; SHE WAS ALLOWED TO GO THE KITCHEN TO GET A SNACK ACCOMPANIED BY SITTER BUT BEGAN YELLING THAT SHE WAS SICK OF BEING FOLLOWED AROUND AND BEGAN THROWING FOOD; SECURITY CALLED TO UNIT; PATIENT FINALLY WALKED BACK TO HER ROOM; SHE IS CURRENTLY SITTING IN BED AWAKE, PERIODICALLY YELLING AT HER SITTER, BEING VERBALLY ABUSIVE; STAFF ATTEMPTS AT REDIRECTION NOT ONLY MILDLY SUCCESSFUL; DR. DUBON UPDATED ON CASE; A SECOND IM ORDER MAY BE OBTAINED IF PATIENT IS UNABLE TO MODERATE BEHAVIOR; SHE DID AGREE TO TAKE PO LAMICTAL BUT REFUSED SEROQUEL AND OTHER PSYCH MEDS.
--- NOTE | 2016-10-13 07:39 | NUR ---
PATIENT SLEPT ALL NIGHT WITH 1:1 SITTER MONITORING AT ALL TIMES. SHE WOKE UP THIS AM IRRITABLE, RUDE TO STAFF BUT COHERENT.
[2016-10-13 08:17] LABS: LITHIUM 0.4 mmol/L (0.6-1.2)
[2016-10-13 10:22] VITALS: BP 113/71
[2016-10-13 12:36] VITALS: BP 112/79
--- NOTE | 2016-10-13 14:02 | NUR ---
PT REMAINS ON 1:1 FOR HIGH FALL RISK AND AGITATION. PT IS DEMANDING WITH STAFF AND WILL REQUEST THE SAME THING OVER AND OVER AGAIN. PT USES A WALKER TO AMBULATE. PT IS NOT ATTENDING GROUPS. PT SPENDS MOST OF THE DAY IN BED PUT DID COME OUT TO THE COMMUNITY TO USE PHONE AT TIMES. PT HAS AN IRRITABLE EDGE AT TIMES. PT DID STATE THAT SHE HAS NO THOUGHTS TO HURT HERSELF BUT DOES WANT TO "CHOKE SOME PEOPLE AT TIMES." HOWEVER WHEN ASKED, SHE SAID SHE THOUGHT THAT EARLIER AND NOT NOW
--- NOTE | 2016-10-13 14:44 | SOCIAL WORKER PROG NOTE PSYCH ---
Social Work Progress Note Progress Note Received a call from Courtney Maier ([phone]) looking for an update on Rand. I informed her that Rand and I had not met yet, due to her not being stable on Thursday. I told her I would be introducing myself to her today. She is interested, along with her Father hany and in coming in for a family meeting. Rand remains on a one to one sitter. I went into her room and introduced myself. I told her that my collegue Michaelle would also be seeing her today. She asked when she was leaving? I told her that I didn't have the answer to that today. She complained of being in pain and expressed needing to be on the medical floor. She said she is having difficulty swallowing and she is only eating things like ice cream and "sqeezing the cheese" out of grilled cheese. She states these symptoms are present because her MS is worsening. She said she doesn't want to be confined to a wheelchair. She then told me that she couldn't talk anymore. Approached her later in the day and asked if we could have a family meeting tomorrow with her , son and daughter hany. She said that was fine, as long as there was no arguing. I told her I wouldn't let that happen. Called Courtney and scheduled a meeting for 2:30pm
--- NOTE | 2016-10-13 16:08 | CP SOUTH PROGRESS NOTE PSYCH ---
Psych (Inpt) Progress Note Progress Note Include the following elements, when applicable: Involvement in the active treatment of the patient with behavioral observations of the patient and the patient's response to the treatment. Review of the ongoing treatment process in the context of the treatment plan. Indication of how multi-disciplinary staff members are carrying out the treatment plan. Plans for future interventions and recommendations for revision of the treatment plan. Liaison with other physicians/providers. Progress Note: PSYCHIATRIST NOTE, 10/13/2016: I discussed this patient's progress to date, current mental status, treatment and discharge planning with staff team today in the daily morning ITTM and also met with her later in the day in an extended session. Patient had been volitile over the weekend, at times resisting medications, eventually accepting PRN's of Zyprexa and low dose Thorazine with some benefit, calming and organizing effects. She tolerated titration in dose of [place] up to 150mg 3x/ day with serum [place] level of 0.4mEq/L this morning and actually improved creatinine (down from 1.2 on 10/06/2016 to 1.0 this AM; GFR up from 45 to 55); patient denied any shakiness/tremors or other side effects; following further discussion and description of possible risks of returning to previously very effective [place] prophylaxis (including eventual risk of need for hemodialysis) patient agreed to make a slight increase in dose of [place] from 450mg to 600mg/ day with continued close monitoring of serum concentration and renal function and continuing efforts on her part to remain well hydrated; patient herself pointed out that though she usually "tries" to drink enough water "when I am manic I get dehydrated, I know it." Patient agreed to take Zydis Zyprexa, 10mg 2x/day, starting tonight; she will also continue to have PRN's of Zydis backed up by low dose PRN Thorazine (50mg a dose). Patient is also complaining bitterly of discomfort in her neck/tightness; I agreed to start a low dose PRN of Ativan for this. Patient also requested earnestly for a consultation from her longtime treating (M.S.) neurologist, Dr. Parker to rule out worsening/ flair up of M.S. which might require intervention/treatment.
--- NOTE | 2016-10-13 16:48 | SOCIAL WORKER PROG NOTE PSYCH ---
Social Work Progress Note Progress Note Attempted to complete social history this afternoon, patient was in her room sobbing uncontrollably, preoccupied with her son's . Spoke with nursing who stated she has been overstimulated and needs to be in her room to rest and calm down. She remains on 1:1 sitter.
[2016-10-13 18:24] VITALS: BP 118/73
[2016-10-13 19:50] VITALS: BP 146/87
--- NOTE | 2016-10-13 22:26 | NUR ---
Pt is in bed most of the shift still on close monitoring for pt safety, Pt is compliant and cooperative with the staff. Vital signs are stable appetite is good. Will continue to monitor the pt overnight.
--- NOTE | 2016-10-14 02:17 | NUR ---
PT AWAKE INC OF URINE, COMPLETE BED CHANGE AND PERICARE GIVEN. NO COMPLAINTS OFFERED.
--- NOTE | 2016-10-14 04:05 | NUR ---
SITTER MAINTAINED, PT GIVEN PRN BENADRYL APPROX 1HR AGO WITH GOOD EFFECT SLEEPING.
--- NOTE | 2016-10-14 06:05 | NUR ---
SLEPT WELL, NO COMPLAINTS OFFERED
[2016-10-14 08:23] VITALS: BP 111/64
--- NOTE | 2016-10-14 14:25 | SOCIAL WORKER PROG NOTE PSYCH ---
Social Work Progress Note Progress Note Attempted to meet with pt to do her social hx and she was arguing with staff over her medication.
--- NOTE | 2016-10-14 14:26 | SOCIAL WORKER PROG NOTE PSYCH ---
Social Work Progress Note Progress Note Patient continues to have a difficult time with occasional agitation and mood lability. Reminded her of family meeting this afternoon. She was concerned about arguing at the meeting. I told her it would be a peaceful meeting. A while later Rand was very tearful. Nursing was trying to get her to take meds. I tried to encourage her to take her meds prior to the family meeting so she could be ok for the meeting. She refused medication. She had some difficulty remembering my name as we talked, she kept asking my name. I informed her of my name a couple of times. She would like to see her grandchildren. I told her she needed to be stable for her grandchildren to see her. She insisted that she was stable. When family arrived she was eating. She was able to say that she didn't think she could be part of the meeting and stated she wasn't ready for that. I told her that was fine. Her daughter hany Valdez, son Myke, and came and met with Dr. Avila and I. The family felt she had been very stable and doing well up until the point that the [place] was discontinued. Family has concern over her kidney function on the [place]. Dr. Avila will look to consult with the grain mill worker. Her will look into who she had been seeing. Family is concerned about her presentation and if she will stablize and get back to her normal functioning. Talked about the importance of getting her to take the medication and that folks can get back to regular function within days to weeks. We will look to meet again on Thursday at 2:30pm and see if Rand can join us for that meeting. After the meeting, Rand's son was able to convince Rand to take her medication.
--- NOTE | 2016-10-14 14:51 | NUR ---
PTS MOOD IS LABILE. THERE ARE TIMES SHE IS FRIENDLY AND APPROPRIATE AND OTHER TIMES SHE IS LOUD AND DEMANDING.SHE IS CURRENTLY REFUSING TO TAKE HER MORNING ZYPREXA. AT ONE POINT PT WAS VERBALLY ABUSIVE TO HER SITTER AND SHE WAS THREATENING TO THROW HER WALKER. DR JONES NOTIFIED. PTS FAMILY IS HERE FOR A METING AT THIS TIME. PT DOES DENY SUICIDAL THOUGHTS
--- NOTE | 2016-10-14 14:52 | NUR ---
PT WAS ORIENTED X3 TODAY, SHE STILL TALKS TO HER SON. SHE HAS NOT BEEN IN ANY GROUPS TODAY, AND NO INTERACTIONS WITH HER PEERS. PT CONTINUES TO BE DEMANDING AT TIMES, ESPECIALLY TO HER SITTER BUT HAS NOT BEEN THROWING ANYTHING. SHE DENIES THOUGHTS TO HURT HERSELF WHEN ASKED.
--- NOTE | 2016-10-14 15:14 | CP SOUTH PROGRESS NOTE PSYCH ---
Psych (Inpt) Progress Note Progress Note Include the following elements, when applicable: Involvement in the active treatment of the patient with behavioral observations of the patient and the patient's response to the treatment. Review of the ongoing treatment process in the context of the treatment plan. Indication of how multi-disciplinary staff members are carrying out the treatment plan. Plans for future interventions and recommendations for revision of the treatment plan. Liaison with other physicians/providers. Progress Note: PSYCHIATRIST NOTE (FAMILY MEETING WITHOUT PATIENT), 10/14/2016: I discussed this patient's slow and uneven progress to date, current mental status, treatment and discharge planning with staff team today in the daily morning SHANT and Nanda Castaneda LCSW, and I met with patient's family, spouse, son and [id number] Courtney in a family session; unfortunately, patient was too worked up, agitated and psychotic to meaningfully attend and family members were pleased to be able express their concerns, ask questions, etc., without worrying about further disturbing patient; all members of the family demonstrated very appropriate and sincere concern for patient and genuine caring about her welfare , safety and recovery. Son emphasized how negatively "different" his mother's behavior had been in the recent weeks ("She has NEVER been this way, this bad in the past") and attributed this to the withdrawal of [place] prophylaxis, as did spouse and Courtney; I explained to them what had been going on with patient's renal functions and that though I have restarted a low dose of [place] for now she may not be able to stay on this medication; family are well aware of the risk that patient might require hemodialysis if she remains on [place] and does not do well in terms of renal function while on it; I also spoke about alternative mood stabilizers, Depakote ER in particular, and my recommendation that if patient has to be switched to the latter her Lamictal be gradually withdrawn to decrease the risk of engendering the 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 I also explained the issue of patient's off-and-on acceptance of medication (Zyprexa); she had taken her meds last night and slept better, but this morning and afternoon was more agitated, resistive and refusing medications ; after the family meeting patient's son was able to get her to take a PRN dose of Zydis Zyprexa, 10mg. We will be repeating [place] level and creatinine tomorrow morning, 10/15/2016; family will be researching the name of the renal doctor patient had seen in [place]; I will also be requesting nephrology consultation in hospital.
--- NOTE | 2016-10-14 15:23 | NUR ---
PT DID TAKE HER MEDS WITH HER FAMILY PRESENT
[2016-10-14 16:01] VITALS: BP 128/74
[2016-10-14 20:04] VITALS: BP 129/79
--- NOTE | 2016-10-14 21:40 | NUR ---
PT IS DISORGANZIED IN THOUGHTS AND BEHAVIOR, APPEARS DELUSIONAL, AND AT TIMES APPEARS TO BE HALLUCINATING. PT IS CURRENTLY ON 1:1 WITH A PT SAFETY MONITOR. PT IS MOSTLY CALM, COOPERATIVE WITH STAFF AND PEERS, AND COMPLIANT WITH UNIT RULES. AT TIMES PT CAN BECOME AGGITATED, BUT IS EASILY REDIRECTED. MOOD IS MOSTLY STABLE, SOMETIMES CAN BECOME LABILE AND TEARFUL, COMMUNCIATION IS DISORGANIZED AT TIMES, HYOERVERBAL AND TANGENTIAL, AND APPETITE IS NORMAL. PT DENIES SI AT THIS TIME.
[2016-10-15 04:30] LABS: LITHIUM 0.6 mmol/L (0.6-1.2)
--- NOTE | 2016-10-15 06:17 | NUR ---
PT ON 1:1. PT DID TAKE HS ZYPREXA ZYDIS. PT AWAKE AFTER 0230. PT REFUSED PRNs LATER. PT LOUD FROM 0230- 0430. PT QUIETER AFTER.
[2016-10-15 07:38] VITALS: BP 121/59
--- NOTE | 2016-10-15 08:31 | SOCIAL WORKER SOCIAL HX PSYCH ---
Social History Basic Assessment Insurance Authorization: Insurance #1: Insurance name: MED[employer]ARE [employer] Phone number: Policy number: [id number] Group number: Authorization number: Primary Care Physician: Patient's PCP: MELLO NORTON MD PCP's Present Problem: Met with Rand this morning to complete social history. She was in bed sleeping , as nursing reported she did not sleep well last night awake since 2:30am. She remains on 1:1 sitter. She woke up with help of the sitter, needed prompting and redirection to focus on meeting with me. She was irritable at times, and labile but copperative mostly. She was tangential as well but able to redirect back onto topic. Unable to complete all questions, as she became mroe restless and wanted to end the session. She was focused on the of her son at times , but able to discuss other subjects as well. She stated her is "cranky alot", but stated he is a 'good leila." She is concerned about her son, Myke's drinking - "he fell asleep in the drive - thru last week, he was drunk." Pt. spoke about her 11yo granddaughter, [place] who she stated has all "A's" and is doing well. Primary Language? Greek Language(s) Spoken At Home: Greek Living Situation Rents or Owns Home? owns Feel Safe Where You Are Living Yes Feel Safe in Relationships? Yes Comments: Lives with her Allergies - Coded Allergies: rituximab (From RITUXAN) (Intermediate, ANAPHYLAXIS 09/09/16) methylprednisolone (PER PT CANT TAKE MAKES HER MANIC 09/09/16) prednisone (PER PT CANT TAKE MAKES HER MANIC 09/09/16) Uncoded Allergies: STEROIDS (Intermediate, "MAKE ME MANIC" PER PT CAN NOT TAKE ANY STEROIDS ) Current Medications - Scheduled Medications Apixaban (Eliquis) 5 MG TABLET 1 TAB PO BID BLOOD THINNER #180 (Reported) Entered as Reported by NESTOR QUIROZ on 09/09/161538 Last Taken: At an unknown date and time Calcitriol 0.25 MCG CAPSULE 2 CAP PO BID VITAMIN D #360 (Reported) Entered as Reported by NESTOR QUIROZ on 02/28/17 1536 Divalproex Sodium (Divalproex Sodium ER) 250 MG TAB.ER.24H 1 TAB PO QHS BIPOLAR #30 (Reported) Entered as Reported by NESTOR QUIROZ on 10/09/16 1650 Ergocalciferol (Vitamin D2) (Vitamin D2) 50,000 UNIT CAPSULE 1 CAP PO QTUES SUPPLEMENT #12 (Reported) Entered as Reported by NESTOR QUIROZ on 09/09/16 1536 Lamotrigine 200 MG TABLET 1 TAB PO QHS BIPOLAR #30 (Reported) Entered as Reported by NESTOR QUIROZ on 09/09/16 1538 Levothyroxine Sodium 125 MCG TABLET 1 TAB PO DAILY THYROID #90 (Reported) Entered as Reported by NESTOR QUIROZ on 09/09/16 1535 [place] Carbonate 150 MG CAPSULE 1 CAP PO QPM MENTAL HEALTH #30 (Reported) Entered as Reported by NESTOR QUIROZ on 09/09/16 1537 Last Taken: 09/09/16 [place] Carbonate 300 MG CAPSULE 600 MG PO QPM MENTAL HEALTH #60 (Reported) Entered as Reported by NESTOR QUIROZ on 09/09/16 153 Last Taken: 09/09/16 [place] HCl 2 % DROPS 1 DROP OD TID RIGHT EYE - GLAUCOMA #15 (Reported) Entered as Reported by NESTOR QUIROZ on 09/09/16 1546 Quetiapine Fumarate 100 MG TABLET 2 TAB PO QPM SLEEP/BIPOLAR #30 (Reported) Entered as Reported by NESTOR QUIROZ on 09/09/16 1538 Miscellaneous Medications Azithromycin (Unknown Strength) TABLET (Unknown Dose) UNKNOWN #6 (Reported) Entered as Reported by NESTOR QUIROZ on 10/09/16 165 Sertraline HCl (Unknown Strength) TABLET (Unknown Dose) UNKNOWN #30 (Reported ) Entered as Reported by NESTOR QUIROZ on 10/09/16 165 Past History Past Medical History Neurological: multiple sclerosis EENT: cataracts, glaucoma Cardiovascular: NONE Respiratory: NONE Gastrointestinal: NONE Hepatic: NONE Renal: NONE (Stage III), chronic kidney disease Musculoskeletal: NONE Psychiatric: bipolar disease, psychosis Endocrine: hyperparathyroidism, hypothyroidism Blood Disorders: anemia 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 was 12yr old - her Father (he fell from a tree). She was raised by her mother. Has 5 siblings. 2 are . Primary Childhood Caretakers: father, mother Family Life During Childhood: I don't remember DCF Involvement? No Mother's Age (Current/): 83 Relationship w/Mother: 83yo, was close to Mother Father's Age (Current/): 63 Relationship w/Father: We were not close. Father when Pt. was 12yrs old. Any Sibling(s)? Yes Sibling's Gender(s)/Age(s): male Sibling 1:, female Sibling 2:, female Sibling 3:, female Sibling 4:, female Sibling 5: Relationship w/Sibling(s): 2 siblings - Roxi () was Bipolar - PT unable to elaborate, Other sister - Jinny (Pt. unable to elaborate. Relationship w/Friends: "I have alot of friends" Family Psych/Sub Abuse/Add Hx: diagnosis Number of Pregnancies: 2 Number of Miscarriages: 1 Number of Abortions: 0 Other Comments: Son when he was 19yo. Abuse/Trauma History Trauma History/Current Trauma: Denies Legal History Current Legal Status: none Have you ever been arrested No Number of Arrests: 0 Hx of Juvenile Legal Charges? No Hx of Adult Legal Charges? No Psychosocial History Primary Support System: , sibling(s), son Strengths/Capabilities: Pt is insightful at times regarding the need for medication evaluation and mood stabilization. Weaknesses: Bipolar illness. Physical Limitations (Interventions): uses walker, and wheelchair on CPS. MS effects mobility. Last Physical: 2015 History of Seizures? No History of Blackouts? 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 Childhood Uatsdin: Yazidism Current Shinto Affiliation: Yazidism Is Spirituality Important to You? No Patient's Ethnicity: Uzbek Cultural/Ethnic Issues: None Are There Developmental Issues? No Milestones Achieved: WNL Psychiatric Treatment History Psych Treatment Inpatient Treatment Yes Outpatient Treatment Yes Location of Treatment [facility] Reason for Treatment psych/mood stabilization Dates of Treatment 2013- present Response to Treatment fair Current Residential Service Technician: [employer] - Rand Kilpatrick APRN Treatment of Prior Episodes: Unknown Diagnosis: Bipolar II Psychodynamic Issues: of son, Bipolar illness Risk Factors: high anxiety/distress, SA/MH hospitalized Substance Use/Abuse History Drug Use/Abuse Substance Used/Abused No History Relapse History? No Substance Abuse Treatment Substance Abuse Treatment Inpatient Treatment No Sexual History # of partners 1 Sexual Orientation Heterosexual Sexual Concerns: PT did not want to answer - became aggitated. Education History Highest Level of Education: PT did not want to participate. Preferred Learning Style: unable to assess HX of Learning Difficulties: None reported Barriers to Learning: None reported Special Communication Needs: None reported Employment History Employment PT did not want to answer History Have You Been in The ? No Current Mental Status Problem List: 1. Bipolar disorder with psychotic features Mental Status Orientation: Confused Affect: Anxious, Constricted, Depressed, Inappropriate, Labile, Manic, Sad Speech: Hyper-verbal, Perseveration, Pressured Neuro-vegetative: Energy Increased Appearance Appearance- Dress/Hygiene: PT is dressed in pajamas and slightly disheveled sitting in wheelchair Behaviors Thought Process: Disorganized, Tangential Thought Content: Auditory Hallucinations, Delusions, Shinto Memory: Impaired Insight: Fair SI/HI Risk Assessment Past Suicidal Ideation/Attempts Yes Current Suicidal Ideation/Att No Past Homicidal Ideation/Att: No Current Homicidal Ideation/Attempts No Degree of Intent: None Danger To: gravely disabled Gravely Disabled: Inability Risk Factors: Chronic/serious med cond, High Anxiety/Distress, SA/MH Hospitalization(s), Poor impulse control Lethality Ratin - Conclusion and Recommendations for treatment - and discharge planning
[2016-10-15 12:23] VITALS: BP 120/72
--- NOTE | 2016-10-15 14:17 | NUR ---
PT MAINTAINED ON ONE TO ONE STATUS FOR SAFETY. SHE IS DEMANDING AT TIMES BUT ABLE TO BE REDIRECTED FOR THE MOST PART. SHE DENIED ANY THOUGHTS OF SUICIDE OR SELF HARM. SHE IS ABLE TO MAKE HER NEEDS KNOWN. AT THIS ITME PT IS STATING SHE WILL NOT GO IN HER ROOM SHE KEEPS "HEARING A CAT". PT DID TAKE HER MEDS TODAY WITH A LITTLE RESISTANCE
--- NOTE | 2016-10-15 15:21 | CP SOUTH PROGRESS NOTE PSYCH ---
Psych (Inpt) Progress Note Progress Note Include the following elements, when applicable: Involvement in the active treatment of the patient with behavioral observations of the patient and the patient's response to the treatment. Review of the ongoing treatment process in the context of the treatment plan. Indication of how multi-disciplinary staff members are carrying out the treatment plan. Plans for future interventions and recommendations for revision of the treatment plan. Liaison with other physicians/providers. Progress Note: PSYCHIATRIST NOTE, 10/15/2016: I discussed this patient's slow progress to date, current mental status, treatment and discharge planning with staff team today in the daily morning ITTM and also met with her again myself in individual session. This morning patient' s serum [place] level was already 0.6mEq/L after only a few days titrated up to 450mg of [place] daily; serum creatinine was up to 1.3 from 1.0, however, which is of concern; I plan to hold [place] starting with evening dose today and then repeat [place] level and serum creatinine tomorrow AM, 10/16/2026; I have again urged patient to drink as much water as possible and nursing staff to encourage adequate hydration in order to be certain the the increased creatinine is not being contributed to by a degree of under/dehydration. Patient took her regular dose of Zyprexa (10mg) last night and again this morning and has not required any PRN's of Zyprexa/Thorazine today. She was more rational and less pressured and scattered with me today, mood generally euthymic to mildly elated (though staff have told me she can still be irritable and demanding at times and believe such is at least partially volitional/under her control). I will continue Zyprexa at 10mg 2x/day with back-up PRN's of Zyprexa/ Thorazine. Patient does not like the dissolvable Zydis, and since she is now medication compliant have switched her over to the oral tablet form.
--- NOTE | 2016-10-15 15:36 | SOCIAL WORKER PROG NOTE PSYCH ---
Social Work Progress Note Progress Note This morning Rand was pleasant and smiling. I told her that we will be looking to have another family meeting on Thursday that I would like her to be part of. She asked if her would be there? I told her he would be. She asked if her pajamas were ok to where on the unit? I told her that was fine and there was no problem with that if she was comfortable. Later in the day I attempted to check in with her. She was sitting in her wheelchair in her room. She reported that she was feeling less manic and more confused. She asked me my name again. She said she was upset earlier about the animal under her bed. I asked about this and when she looked there she got frantic and reported it was there again. She quickly left the room and stated she wasn't going to return to that room. I told her that I did not see anything there. At that point the sitter also calmed her down and she requested to use the phone to call family. Courtney (daughter hany) called earlier looking for an update. I called her to update her on the slow progress. She said her and Father hany are coming to see her for 4pm. Rand's Myke called and left a message that the doctor that was seeing her for her kindneys was Dr. Kingston. This information was passed along to Dr. Avila.
[2016-10-15 16:07] VITALS: BP 133/87
[2016-10-15 19:50] VITALS: BP 106/76
--- NOTE | 2016-10-15 20:42 | NUR ---
PT IS OFTEN IN [place], INTERACTING WITH STAFF AND PEERS. AT TIMES PT BEHAVIOR AND SPEECH IS DISORGANIZED. PT ALSO SEEMS TO BE EXPERIENCING BOTH VISUAL AND TACTILE HALLUCINATIONS, BELIEVING TO SEE A CAT IN PT ROOM AND FEEL SOMEONE TOUCHING HER. MOOD IS STABLE FOR THE MOST PART, AT TIMES BECOMING LABILE AND TEARFUL, BUT THIS OFTEN PASSES QUICKLY. APPETITE IS NORMAL. PT DENIES SI AT THIS TIME.
--- NOTE | 2016-10-16 06:28 | NUR ---
PT UP FROM 0100 TO 0400. PT EVENTUALLY TOOK ATIVAN 0.5 AT 0245 WITH GOOD EFFECT. PT HYPOMANIC, HYPERVERBAL. PT HAD BEEN QUIETER AND MORE ORGANIZED ON EVENINGS.
[2016-10-16 08:20] LABS: LITHIUM 0.6 mmol/L (0.6-1.2)
[2016-10-16 09:04] VITALS: BP 131/86
--- NOTE | 2016-10-16 13:28 | NUR ---
PT IS CALM AND COOPERATIVE TODAY. PT IS OUT IN COMMUNITY AT TIMES. PT COMES OUT TO THE COMMUNITY FOR MEALS AND TO MAKE PHONE CALLS. PT IS ISOALTIVE IN HER ROOM SLEEPING FOR THE REST OF THE SHIFT. PT IS NOT ATTENDING GROUPS. PT MOOD IS STABLE WITH A CONSTRICTED AFFECT. PT MAKES JOKES WITH STAFF AND IS ABLE TO COMMINUCATE HER NEEDS. PT DENIES SI THOUGHTS.
--- NOTE | 2016-10-16 14:01 | NUR ---
PT IS PRESENTLY IN THE BATHROOM AND IS BEING VERBALLY ABUSIVE TO HER SITTER. SHE IS DEMANDING AND ENTITLED AT THIS TIME. WILL OFFER PRN MEDS
[2016-10-16 16:17] VITALS: BP 129/73
--- NOTE | 2016-10-16 16:38 | CP SOUTH PROGRESS NOTE PSYCH ---
Psych (Inpt) Progress Note Progress Note Include the following elements, when applicable: Involvement in the active treatment of the patient with behavioral observations of the patient and the patient's response to the treatment. Review of the ongoing treatment process in the context of the treatment plan. Indication of how multi-disciplinary staff members are carrying out the treatment plan. Plans for future interventions and recommendations for revision of the treatment plan. Liaison with other physicians/providers. Progress Note: PSYCHIATRIST NOTE, 10/16/2016: I discussed this patient's slow and at times uneven progress to date, current mental status, treatment and discharge planning with staff team today in the daily morning ITTM and also met with her again myself in individual session. Patient did less acting out today and has been taking her regular doses of Zyprexa (10mg 2x/day). Serum [place] level this morning was still 0.6mEq/L, what it had been prior to my holding all Letha since yesterday, 10/15/2016, at 1pm! The lack of any decline in concentration indicates that the Letha is NOT clearing patient's kidney; on the other hand, after holding Letha yesterday serum creatinine was already down to 1.2 from 1.3 yesterday. I am left with the conclusion that in the face of what is apparently adequate state of hydration patient cannot tolerate a dose of L[place]a sufficient to provide any therapeutic benefit and that even a minimal dose might soon bring patient into stage IV renal failure and requiring hemodialysis (which she clearly told me today she does NOT want to risk). I went over with patient my alternative proposed plan to taper away Lamictal and restart Depakote with rapid titration up to therapeutic serum levels; we agreed to discuss this further with her and son when they come in for a family meeting tomorrow, 10/17/2016, at 2:30pm.
--- NOTE | 2016-10-16 16:51 | SOCIAL WORKER PROG NOTE PSYCH ---
Social Work Progress Note Progress Note Attempted to return a call from Rand's son, but there was no answer at the time. Spoke with Rand in the afternoon and she looked like she is making progress. She was able to have a calm and clear conversation with me. She said she feels like she is getting better and likes the meds she is on. She talked about the day her son and how she will never forget. I empathized her loss as a Mother and agreed that that's something you don't get over. She started to get a little confused later in our conversation. I reminded her of the family meeting tomorrow and how I expected her participation. She agreed to be there, but said she may not do much talking. She is upset over the current incontinence that she is experiencing. Reporting that she wasn't doing this before. She was up last night in the middle of the night for a few hours and was incontinent. She is looking forward to her visit with family debihoa. She only picked at her lunch today, but didn't really eat alot.
--- NOTE | 2016-10-16 19:19 | NUR ---
Dr. Lloyd contacted d/t pt's persistent at times productive cough, order received for stat chest x-ray, pt aware and stable at the moment, with visitors at this time.
[2016-10-16 19:41] VITALS: BP 139/75
--- NOTE | 2016-10-16 20:08 | RADIOLOGY REPORT ---
EXAMINATION: XR CHEST CLINICAL INFORMATION: Productive cough. COMPARISON: Portable chest x-ray 10/09/2016. TECHNIQUE: PA and lateral views of the chest were obtained. FINDINGS: The lungs are well-expanded and clear without focal airspace consolidation. No pleural effusions or pneumothoraces are identified. Cardiomediastinal contours are within normal limits. Soft tissues are unremarkable. No acute osseous abnormality is identified. There are moderate multilevel degenerative changes of the thoracic spine. IMPRESSION: No acute pulmonary process.
--- NOTE | 2016-10-16 22:11 | Event Note ---
Event Note Event Note: I was asked to evaluate this patient for c/o cough (hacking) with minimal sputum production. Patient reports the sputum is sometimes green, yellow or white. She reports a fever although nursing staff denied any fever recorded by them in the chart. She has rhinorrhea but denies sore throat or headache. Vitals stable. Exam: No pharyngeal erythema. No lymphadenopathy. Lungs clear to auscultation. Labs reviewed. I obtained a CXR which did not suggest a pneumonia. She most likely has a bronchitis, hence treating her with Azithromycin, Mucinex and TRC nebs. Will continue to follow. Patient was concerned about her Multiple sclerosis and wanted someone to speak with Dr. Parker. When asked what the concern is, she said I don't know what to do with the MS, ask him and let me know. I advised her that she should follow up at outpatient.
--- NOTE | 2016-10-16 22:14 | NUR ---
PT IS VISIBLE ON UNIT, SOCIALIZING WITH PEERS AND MAKING PHONE CALLS. HAS A COUPLE VISITORS THROUGHOUT THE [place]. REMAINS ON 1:1 FOR SAFETY. REFUSED WRAP UP MEETING. COOPERATIVE AND COMPLIANT WITH STAFF. NO HALLUCINATIONS OR DELUSIONAL THOUGHTS OBSERVED/REPORTED. NO COMPLAINTS OR SI REPORTED. PT HAS A STABLE MOOD AND FULL RANGE AFFECT.
--- NOTE | 2016-10-17 | NUR ---
SLEEPING SITTER REMAIN IIN PLACE, NO COMPLAINTS OFFERED.
--- NOTE | 2016-10-17 02:00 | NUR ---
REMAINS ASLEEP ,OOB X1 TO BATHROOM WITHOUT PROBLEM SITTER WITH PATIENT.
--- NOTE | 2016-10-17 04:05 | NUR ---
OBSERVED SLEEPING, SIITER MAINTAINED, NO COMPLAINTS.
[2016-10-17 07:58] VITALS: BP 132/78
[2016-10-17 08:34] LABS: LITHIUM 0.5 mmol/L (0.6-1.2)
[2016-10-17 12:11] VITALS: BP 128/78
--- NOTE | 2016-10-17 13:20 | NUR ---
PT IS COMPLIANT AND COOPERATIVE. MOOD IS STABLE WITH A CONSTRICTED AFFECT. PT DENIES SI AT THIS TIME, NO COMPLAINTS OFFERED. PT HAS BEEN CALMER, SPEECH IS CLEARER AND SLOWER AND PT HAS SHOWN NO DISRESPECTFUL OR AGITATED BEHAVIOR. PT HAS BEEN VASCILATING BETWEEN BEING PRESENT ON THE UNIT AND WITHDRAWN IN HER BED. PT INTERACTING WITH OTHERS WHEN ON UNIT. PT IS ATTENDING SOME GROUPS. VITALS ARE STABLE, APPETITE IS GOOD.
--- NOTE | 2016-10-17 15:33 | SOCIAL WORKER PROG NOTE PSYCH ---
See Addendum Social Work Progress Note Progress Note Rand's family came in for a family meeting. Her , daughter hany, and son were present for the meeting as well as Dr. Avila. Rand was emotional, crying at the meeting due to wanting to go home. She was disappointed to hear that she really needs to be here longer. Family was informed that she will not be able to take [place], as her labs indicate that it is too risky at this time. Dr. Avila wants to get her stable on Depakote and taper her off the Lamictal. Meanwhile Rand will also remain on the Zyprexa, which seems to be helping her mood and thoughts at this time. Rand is anxious over new admissions to the unit and feels some discomfort around certain peers. She was encouraged to talk to her one on one if anyone is bothering her. She had some physical complaints about her neck pain today and asked if she could have a heat pack or rice wrap for her neck. We will discuss this with nursing. She reports not being able to eat solid foods very well at this time. We suggested she request a soft diet for now if that would help. She has been requesting to see her grandchildren. Family will try and bring them this weekend with the condition that she takes all her medication. Another meeting is planned for Thursday at 2:30pm. I informed them that I will not be here and another social media intern will be covering.
[2016-10-17 16:17] VITALS: BP 114/81
--- NOTE | 2016-10-17 17:31 | CP SOUTH PROGRESS NOTE PSYCH ---
Psych (Inpt) Progress Note Progress Note Include the following elements, when applicable: Involvement in the active treatment of the patient with behavioral observations of the patient and the patient's response to the treatment. Review of the ongoing treatment process in the context of the treatment plan. Indication of how multi-disciplinary staff members are carrying out the treatment plan. Plans for future interventions and recommendations for revision of the treatment plan. Liaison with other physicians/providers. Progress Note: PSYCHIATRIST NOTE (FAMILY MEETING), 10/17/2016: I discussed this patient's continuing slow progress to date, current mental status, treatment and discharge planning with staff team today in the daily morning SHANT and Nanda Castaneda LCSW, and I met again with family (patient's , son and [id number]) and this time patient was able to join the meeting and remain in attendance throughout despite becoming upset and transiently agitated, emotionally labile/teary (from which she recovered completely at length). Patient had been less frequently labile, irritable and resistive to nursing care generally since yesterday and tolerating the increased dose of Zyprexa (25mg/day) well without noticeable daytime sedation (though patient does c/o feeling fatigued at times). We went over my conclusion/recommendation that attempt at reinstitution of [place] therapy be placed on hold for the forseeable future at least; serum [place] level was still 0.5mEq/L this morning after two days off [place]; serum creatinine still recovering from brief reintroduction of low dose [place]. We discussed a clinical retrial on Depakote ER; this had been initiated on an outpatient basis but dose of Depakote had been severely limited by pre-existing treatment with Lamictal (200mg/day). I proposed gradual tapering away of Lamictal with slow upward titration of Depakote ER; I was able to contact Dr. Silvio Parker, patient's longtime treating [place] neurologist via cellphone ([phone]; also [phone]--latter is [facility] office); he confirmed that he had not started patient on Lamictal and that she has no history of seizures and presumed she was taking it "for psych reasons." I went over with patient and family the risks vs. benefits and possible side effects of Depakote ER, as well as over the cross taper of Lamical and Depakote (including risk of engendering Hansen- Renard Syndrome); patient and family asked appropriate questions and all agreed to the switch starting over coming weekend; ian I will reduce Lamictal from 200mg to 150mg, to 100mg tomorrow night and then by smaller amounts through most of next week, while Depakote ER is started in AM 10/18/2016 at 250mg/day with slow titration up to 1,000mg daily before obtaining serum valproic acid level. Current dose of Zyprexa, plus PRN's of same will be continued for the present but hopefully the dose of Zyprexa can eventually be tapered (following an interval of outpatient stabilization).
[2016-10-17 19:53] VITALS: BP 133/78
--- NOTE | 2016-10-17 21:50 | NUR ---
PT IS IN [place]IEU AT TIMES, THOUGH SPENDING A LONG PERIOD OF TIME IN PT ROOM. PT IS AGGITATED AT TIMES, THOUGH IS CAN BE EASILY RE-DIRECTED. PT HAS BEEN INTERACTING WELL FOR THE MOST PART WITH STAFF BUT NOT MUCH INTERACTION WITH PEERS. MOOD IS MOSTLY STABLE, IS LABILE AT TIMES AND CAN BECOME TEARFUL, BUT THIS TENDS TO PASS QUICKLY. COMMUNICATION IS ORGANIZED AND APPEARS NORMAL IN ALL RESPECTS, AND APPETITE IS NORMAL. PT DENIES SI AT THIS TIME.
--- NOTE | 2016-10-18 06:51 | NUR ---
PATIENT SLEPT FOR SEVERAL SHORT PERIODS, BUT OVERALL DID NOT SLEEP WELL; IRRITABLE AT TIMES, USUALLY HAS TO HAVE ANSWERS TO HER QUESTIONS REPEATED SEVERAL TIMES DUE TO LACK OF COMPREHENSION; ZOFRAN PRN GIVEN FOR NAUSEA EFFECTIVE.
[2016-10-18 07:57] VITALS: BP 118/64
[2016-10-18 12:38] VITALS: BP 105/73
--- NOTE | 2016-10-18 17:12 | CP SOUTH PROGRESS NOTE PSYCH ---
Psych (Inpt) Progress Note Progress Note Include the following elements, when applicable: Involvement in the active treatment of the patient with behavioral observations of the patient and the patient's response to the treatment. Review of the ongoing treatment process in the context of the treatment plan. Indication of how multi-disciplinary staff members are carrying out the treatment plan. Plans for future interventions and recommendations for revision of the treatment plan. Liaison with other physicians/providers. Progress Note: Chart reviewed, patient progress discussed with nursing staff. Interviewed patient this afternoon. She was sitting on her bed complete by her food safety director. Pleasant, cooperative, reports that she feels she is improving, says her mood is improving, denies psychotic symptoms. Says that she slept fairly well last evening. Some challenges with other patients on the unit, especially one in particular, "when I see him I turned around and hit back to my room". Cognitively, she is alert, oriented to name, hospital, month, and knows that the upcoming holidays Easter. She denies any SI or HI currently. Vitals reviewed and are within normal limits. No new laboratory results today. Mental status exam: Well groomed female with apparent stated age sitting on her hospital bed. Cooperative with interview, good eye contact, no psychomotor agitation or retardation noted. Speech was within normal limits. Mood was "getting better ", affect was euthymic, congruent, non-labile. Thought process was mildly circumstantial, thought content was otherwise within normal limits. She denies SI or HI. Denies perceptual disturbances. Cognition is above. Insight and judgment were fair. A/P: Slow improvement. Continue present management as per primary team.
[2016-10-18 20:19] VITALS: BP 149/93
--- NOTE | 2016-10-18 22:01 | NUR ---
PT IS ISOLATIVE AND WITHDRAWN, STAYING TO SELF WHILE IN MILIEU, NOT INTERACTING WITH PEERS, BUT WILL INTERACT WITH STAFF. PT IS AGGITATED AT TIMES, BUT IS RELATIVELY EASY TO RE-DIRECT. MOOD IS NOT STABLE, WILL BECOME LABILE AT TIMES AND AGGRAVATED ALL OF A SUDDEN, BUT THIS TENDS TO QUICKLY PASS. COMMUNICATION IS ORGANIZED AND APPEARS NORMAL IN ALL RESPECTS, AND APPETITE IS NORMAL. PT DENIES SI AT THIS TIME.
--- NOTE | 2016-10-19 05:19 | NUR ---
PT REMAINS ON 1:1. SHE WAS UP AND DOWN THRU MOST OF THE FIRST HALF OF THE NIGHT. HYPOMANIC, BUT MORE REDIRECTABLE.
[2016-10-19 06:48] VITALS: BP 145/84
[2016-10-19 08:34] LABS: LITHIUM < 0.2 mmol/L (0.6-1.2)
--- NOTE | 2016-10-19 08:35 | NUR ---
DR. HAMPTON PAGED AFTER AM REPORT AND CALLED BACK AROUND 0800 AND NOTIFIED OF PT FALL, PER CHANGE OF SHIFT REPORT - IT WAS WITNESSED, 1:1 MAINTAINED AND PRESENT AND ASSISTED PT, WHO IS CURRENTLY IN NO ACUTE DISTRESS, NO COMPLAINTS, NO VISIBLE INJURY NOTED OR REPORTED TO THIS RN AT PRESENT, VSS, PER MD WILL BE ON THE UNIT TO FURTHER ASSESS THE PT/SITUATION WELL. PT THUS FAR HAS BEEN LABILE, IRRITABLE AND AT TIMES VERBALLY AGGRESSIVE WITH STAFF WITH WHOM ARE CONTINUOUSLY ATTEMPTING TO KEEP SAFE WITH FALL PRECAUTIONS IN PLACE AND PT DEMONSTRATES RESISTANCE AT TIMES TO REDIRECTION AND BOUNDARY SETTINGS AND STAFF WILL CONTINUE TO RE-EDUCATE PT. ABULATES WITH STEADY, STRONG GAIT WITH WALKER.
--- NOTE | 2016-10-19 10:52 | CP SOUTH PROGRESS NOTE PSYCH ---
Psych (Inpt) Progress Note Progress Note Include the following elements, when applicable: Involvement in the active treatment of the patient with behavioral observations of the patient and the patient's response to the treatment. Review of the ongoing treatment process in the context of the treatment plan. Indication of how multi-disciplinary staff members are carrying out the treatment plan. Plans for future interventions and recommendations for revision of the treatment plan. Liaison with other physicians/providers. Progress Note: Chart reviewed, patient progress discussed with nursing staff. Interviewed patient this morning. Patient reports ongoing struggle with tolerating other challenging patients on the unit. Asks for some accomodations such as eating in her room to try and avoid direct confrontation, which was granted. Also sustained a mild witnessed fall this morning without head injury. She denies SI/ HI. Perseverative on paying a bill which she says is due soon. Denies overt med side effects. Vitals reviewed with mild htn. Lab results with stable creatinine. Mental status exam: Well groomed female of apparent stated age sitting in day room by lee annk. Cooperative with interview, good eye contact, no psychomotor agitation or retardation noted. Speech was within normal limits. Mood was "I'm having a rough day ", affect was irritable, mildly labile. Thought process was perseverative, thought content focused on other patients and transfer to "neurology unit". She denies SI or HI. Denies perceptual disturbances. Cognition grossly intact. Insight and judgment were limited A/P: Slow improvement though with residual manic irritability, perseveration, and limited insight. Seems to be tolerating med titration adequately. Continue present management as per primary team.
--- NOTE | 2016-10-19 11:45 | NUR ---
AFTER THIS RN SPOKE WITH PT AROUND 0915 PT APPEARED MORE "HEARD" AND LESS IRRITABLE/AGITATED AND ANXIOUS AND REPORTED APPRECIATION FOR THE COMFORT AND THERAPEUTIC CONVERSATION. PT REPORTED THAT SHE HAS JUST FELT OVERSTIMULATED AND OVERWHELMED WITH THE NOISE AT TIMES FROM THE UNIT AND HAD A BAD CONVERSATION WITH THIS MORNING AND WAS AFRAID HER CREDIT CARD BILL WOULD BE LATE, AT THIS TIME DR. AVILES ENTERED THE UNIT AND ALSO SPOKE WITH THE PT AND TOGETHER WE ALL CAME TO A POSITIVE PLAN FOR THE DAY AND PT WAS SMILING AND REPORTED FEELING MORE RELAXED AND CONCERNS ARE DECREASED. DR. HAMPTON CAME ON THE UNIT AROUND 1000 TO ASSESS PT D/T FALL (ALTHOUGH NO ISSUES/COMPLAINTS/INJURIES NOTED OR REPORTED) YET PT WAS IN THE SHOWER WITH SITTER PRESENT FOR SAFETY AND MD STATED HE WOULD COME BACK. AT THIS TIME PT IS RESTING IN BED, + AND IMPROVED MOOD WITH FULL RANGE AFFECT, 1:1 MAINTAINED.
[2016-10-19 13:00] VITALS: BP 132/73
--- NOTE | 2016-10-19 13:22 | NUR ---
DR. HAMPTON JUST MET WITH PT TO ASSESS FALL EARLIER THIS AM, NO CONCERNS OR FURTHER ORDERS, PT STABLE.
--- NOTE | 2016-10-19 14:04 | Event Note ---
Event Note Event Note: I was asked to evaluate the patient today after she sustained a fall. Patient reports that she was trying to reach down for something when she tripped and fell landing on her right buttocks and right arm. There was no loss of consciousness reported. No head trauma reported. Since then she has been ambulating around the unit with the use of a walker which is baseline for her. When I initially came to evaluate her she was in the shower. When I did see her I found her alert and oriented 3. Mentating appropriately. She admitted to pain however states that was generalized pain and chronic for her. She denied any focal tenderness. On exam there is no evidence of head trauma. She had normal range of motion of her right shoulder and right elbow. Nursing staff denies any bruising on her torso or back when she was in the shower. Recommendations: -Continue Tylenol as needed for pain control. -Recommend daily monitoring of torso by nursing staff for development of any hematoma.
[2016-10-19 16:06] VITALS: BP 136/80
[2016-10-19 20:08] VITALS: BP 146/78
--- NOTE | 2016-10-19 22:50 | NUR ---
PT IS COOPERATIVE WITH STAFF, AND IS COMPLIANT WITH UNIT RULES. PT IS BOTH IN AND OUT OF MILIUE, SPENDING LONG PERIODS OF TIME IN PT ROOM. NOT INTERACTING MUCH WITH PEERS, PEERS TEND TO BE AGITATING FOR THE PT. MOOD IS STABLE, AFFECT IS EUTHYMIC, AT TIMES BECOMING LABILE AND TEARFUL, THOUGH THIS SEEMS TO PASS QUICKLY. COMMUNICATION IS ORGANIZED, BUT AT TIMES IS LOUD AND PRESSURED. APPETITE IS NORMAL. PT DENIES SI AT THIS TIME.
--- NOTE | 2016-10-20 06:11 | NUR ---
PT CONTINUES ON 1:1. PT SLEPT BETTER LAST NIGHT, BUT STILL HYPOMANIC AND REQUIRING REIRECTION WHEN AWAKE.
[2016-10-20 08:04] VITALS: BP 146/74
[2016-10-20 12:06] VITALS: BP 125/70
--- NOTE | 2016-10-20 13:55 | NUR ---
PT VISIBLE MOST OF THE DAY IN THE MILIEU. SHE ATTENDED NO GROUPS, AND INTERACTS MINIMALLY WITH PEERS BUT TALKS TO STAFF. PT DID GET IRRITABLE TODAY WHEN TOLD SHE NEEDED TO WAIT AND SHOWER, SINCE EACH TIME SHE WANTED TO TAKE A SHOWER IT WAS DURING GROUP WHICH SHE DECLINED TO ATTEND. PT DENIES THOUGHTS OF HURTING SELF WHEN ASKED.
[2016-10-20 16:12] VITALS: BP 112/76
--- NOTE | 2016-10-20 16:23 | CP SOUTH PROGRESS NOTE PSYCH ---
Psych (Inpt) Progress Note Progress Note Include the following elements, when applicable: Involvement in the active treatment of the patient with behavioral observations of the patient and the patient's response to the treatment. Review of the ongoing treatment process in the context of the treatment plan. Indication of how multi-disciplinary staff members are carrying out the treatment plan. Plans for future interventions and recommendations for revision of the treatment plan. Liaison with other physicians/providers. Progress Note: PSYCHIATRIST NOTE, 10/20/2016: I discussed this patient's slow progress to date, current mental status, treatment and discharge planning with staff team today in the daily morning ITTM and also met with her again myself in individual session. She continues to be mildly disorganized, pressured, irritable, labile but improving despite major medication adjustments; dose of Lamictal tapered over the weekend to 50mg tonight and then 25mg tomorrow night, 10/21/2016. Depakote ER has been titrated up now to a total of 750mg/day and well tolerated to date. Patient continues on 25mg of Zyprexa daily but has not required any PRN's of Zyprexa over the weekend. In contrast to her great upset during the family meeting on 10/17/2016 when she realized she was not going to be discharged at that time, when she learned that the family meeting previously scheduled for tomorrow had been rescheduled (at her 's request) to the day after, 10/22/2016, she was clearly irritated but her reaction was much more restrained and measured; she noticed this herself in our discussion today. At current rate of improvement, I am hoping to be able to discharge patient home following family meeting on 2016 at 2:30pm, so she can enjoy the holiday with her relatives (though I have cautioned her to not become overstimulated by family activities over the weekend). Patient should move up her next outpatient appointment with Dr. Silvio Parker, her neurologist, M.S. specialist.
--- NOTE | 2016-10-20 16:46 | SOCIAL WORKER PROG NOTE PSYCH ---
Social Work Progress Note Progress Note Patient seen individually in office, and she was in a self-described bad mood, partly as a carryover from meeting on Thursday, when she had thought the family meeting would result in her being discharged. Patient stating that she regrets going off the [place], despite the potential problems with kidneys, because she hates "going through this stabilizing process again", now on Depakote. Patient very irritable, although she did respond to some humor at one point. Still she sees nothing positive today, and reiterated over and over that she feels stuck and trapped, and is very worried about being here indefinitely Patient was on track to follow up in [facility], but she states that she is firmly against that plan as of this moment. She is angry with everyone at this point. Family meeting is scheduled for Thursday10-22-16. Patient is on PEC until 10-24-16. We agreed to meet again tomorrow to see how she was coping.
[2016-10-20 19:38] VITALS: BP 133/66
--- NOTE | 2016-10-20 21:11 | NUR ---
PT TALKED WITH RN IN THE [facility] FOR A WHILE. IS HOPEFUL ABOUT DC SOON. PT WAS ANNOYED AND IRRITATED WITH SOME PEERS ABOUT NOT SHARING THE TV CHANNEL. PT VOICED CONCERNS WITH STAFF AND IT WAS HANDLED. REFUSED GROUP. SITS IN FRONT OF THE FISHTANK OR READS IN ROOM.
--- NOTE | 2016-10-21 04:10 | NUR ---
requested HS meds early. c/o being very tired. Meds given as requested. slept well
[2016-10-21 07:25] VITALS: BP 123/64
[2016-10-21 12:30] VITALS: BP 131/74
--- NOTE | 2016-10-21 13:49 | NUR ---
PT VISIBLE IN THE MILIEU TODAY. SHE DID NOT ATTEND ANY GROUPS TODAY, BUT HAS BEEN INTERACTING MORE WITH PEERS AND STAFF. PT APOLOGIZED TO THIS MHW FOR HER BEHAVIOR YESTERDAY, AND HAS BEEN COMPLIANT TODAY. PT DENIES THOUGHTS OF HURTING SELF WHEN ASKED.
--- NOTE | 2016-10-21 14:56 | SOCIAL WORKER PROG NOTE PSYCH ---
Social Work Progress Note Progress Note Patient was very talkative this morning, although she really should have been attending group meeting. She was not about to change her mind and attend group, so we talked about her meds and plans. Patient indicated that she felt that she was going to benefit from the med change. Mood is less irritable;however she is staying to herself for the most part. Family meeting that had been scheduled for today, was re-scheduled for 10-22-16 at the same time: 230 p.m. per family request Patient is make some slow progress, and we will assess further tomorrow.
--- NOTE | 2016-10-21 15:22 | CP SOUTH PROGRESS NOTE PSYCH ---
Psych (Inpt) Progress Note Progress Note Include the following elements, when applicable: Involvement in the active treatment of the patient with behavioral observations of the patient and the patient's response to the treatment. Review of the ongoing treatment process in the context of the treatment plan. Indication of how multi-disciplinary staff members are carrying out the treatment plan. Plans for future interventions and recommendations for revision of the treatment plan. Liaison with other physicians/providers. Progress Note: PSYCHIATRIST NOTE, 10/21/2016: I discussed this patient's slow progress to date, current mental status, treatment and discharge planning with staff team today in the daily morning ITTM. I spoke with her treating neurologist, Dr. Parker, earlier today. Serum valproic acid level this morning was already up to 43.4mcg/ml in well tolerated at a dose of 750mg daily; I increased dose this morning to a total of 1,000mg/day and will repeat valproic acid level prior to discharge. During our session today patient was clearer mentally than at any time I have seen her since admission and yet her own perception in contrast was "I'm still confused...and tired." She has not required any PRN Zyprexa since increase in regular dose to 25mg/day; now with increase in Depakote I will try reducing Zyprexa tonight to 10mg 2x/day (down by 5mg/day) but will continue the PRN Zyprexa up to an additional 7.5mg/day. Patient is looking forward to meeting with family tomorrow; we have decided that if all goes well between now and then and in the meeting patient could be discharged home afterwards. Patient is ambulating quite briskly and ably with the walker (even though it is "not as good as the one I have at home") while at the same time reporting pain in her LLE; she plans to make an appointment to see Dr. Parker for soon after discharge; patient told me she did not recall Dr. Angel seeing her today; maybe he will be in tomorrow. Patient was visited by her clincian/prescriber, Rand Kilpatrick APRN, today and was very pleased with this; patient refuses to make transition to OPS through the [facility], is looking forward to resuming appointments with Ms. Kilpatrick.
[2016-10-21 15:33] VITALS: BP 118/73
[2016-10-21 19:50] VITALS: BP 97/58
--- NOTE | 2016-10-21 21:44 | NUR ---
PT IS STABLE WITH FULL RANGE OF AFFECT. PT HAS BEEN OUT IN THE COMMUNITY AND SOCIALIZING WITH PEERS/STAFF. APPROPRIATE TO THE UNIT AND REQUIRES NO REDIRECTION. PT DID NOT ATTEND WRAP UP GROUP. CURRENTLY SLEEPING. VS ARE STABLE AND DENIES ANY SI/HI TO THIS MHW.
--- NOTE | 2016-10-22 06:05 | NUR ---
PATIENT UP TO BATHROOM TWICE, RESTLESS; GIVEN PRN BENADRYL AT 0225 WITH GOOD EFFECT.
[2016-10-22 07:41] VITALS: BP 132/75
[2016-10-22] MEDS ORDERED: ZYPREXA ZYDIS5 M1 PO (10:44)
--- NOTE | 2016-10-22 12:10 | DISCHARGE SUMMARY REPORT-PSYCH ---
Visit Information Visit Dates/Diagnosis' Admission Date: 10/09/16 Discharge Date: 10/22/16 Reason for Admission: "I am not a crazy person!" Psy Discharge Primary Diag: Bipolar I Disorder; MRE Manic with Psychotic F. Psy Discharge Secondary Diag: M.S. with recent "flair" Hypothyroidism Stage III kidney Failure Hospital Course Significant Lab Findings: glucose = 81; BUN = 13, 15, 21, 17, 24, 26, 27, serum creatinine = 1.1, 1.0, 1.3 , 1.2, 1.3, 1.2, 1.2; GFR = 50, 55, 41, 45, 41, 45, 45; AST = 37; WBC = 3.6; urine for drugs of abuse--negative; urinalysis--WNL; valproic acid level (2016) = 30.6mcg/mL, 43.4, 45.7; [place] levels = less than 0.2, 0.4, 0.6, 0.5, less than 0.2 (for full details of all normal range laboratory data from this admission, see the electronic medical record) Course Complications: none Consultations: patient was seen for an admission medical H&P by Joceline Martines M.D., and followed medically throughout this admission by the hospitalist staff/[facility] medical attending physicians Allergies: Coded Allergies: rituximab (From RITUXAN) (Intermediate, ANAPHYLAXIS 09/09/16) methylprednisolone (PER PT CANT TAKE MAKES HER MANIC 09/09/16) prednisone (PER PT CANT TAKE MAKES HER MANIC 09/09/16) Uncoded Allergies: STEROIDS (Intermediate, "MAKE ME MANIC" PER PT CAN NOT TAKE ANY STEROIDS ) Hospital Course/TX Response: (see also, all admission assessments, daily M.D./WALLPAPER INSPECTOR AND SHIPPER and SUPERVISOR RECLAMATION progress notes and discharge summary from this admission in the electronic medical record) Initially, patient appeared to be in a full manic psychotic episode contributed to by recent decision/need to come off chronic effective bipolar prophylaxis with Plain View in view of declining renal function. Decompensation was also in the context of the anniversary of son's over 10 years ago (), as well as possible recent flair of M.S. We were able to gradually/slowly gain control over manic and psychotic symptomatology with a combination of Zyprexa and mood stabilizers. Attempt was made to reintroduce a low dose of [place] but serum creatinine increased rapidly from 1.0 to 1.3 and [place] level though never reaching above 0.6mE/L took several days to clear even after Plain View was completely discontinued/trial re-introduction of Plain View terminated. Since patient was being treated for mood stabilization only with Lamictal ( confirmed directly wih Dr. Parker that patient does NOT have a seizure disorder), Depakote was considered to be a better alternative treatment to [place]; given the increased risks of Hansen-Renard Syndrome on a combination of Depakote and Lamictal, agreement was reached to taper away the Lamictal in favor of a trial on Depakote. Due to the careful taper of Lamictal prior to titrating Depakote serum valproic level by date of discharge was still only 45.7mcg/mL and Depakote ER may require further upward dose adjustment in order to be optimally effective as a mood stabilizer. Three family/couples meetings were held during this admission, on 10/14, 10/17, and 10/22/2016; spouse, son and [id number] were very appropriately supportive and will be looking after patient going forward. By date of discharge, patient was clear, coherent and rationally goal-directed in expressed thought, euthymic and bright in affect/ mood, free of irritability or pressure, clearly not hypomanic. She showed no evidence of suicidal or homicidal ideation, plans, intent or impulses and was well aware of her safety plan should she ever in future come to believe herself at acute risk of harming herseslf or others. Lamictal had been completely tapered away without complications, rash developing upon introducion of Depakote. By discharge, patient had no complaints about her M.S. but was still planning to f/u with Dr. Parker within two weeks in order to re-evaluate her level of pain, weakness and numbing in left leg and occasional episodes of urinary incontinence. Discharge HBIPS - Tobacco Use Treatment Offered Post DC Medications Offered: NA-No Tob Use >30 days Post DC Tobacco Treatment Plan: NA-No Tobacco use >30days Program Appt Date: 10/30/15 (patient does not smoke) - EtOH/Drug Use D/O Treatment Offered Post DC Medications Offered: NA-No EtOH/Drug Use D/O Post DC EtOH/SubAbuse TX Plan: NA-No EtOH/Drug Use D/O Metabolic Screening - Screen if on a Neuroleptic Medication - Metabolic screening should include: - Blood Pressure, BMI, Glucose or Hgb A1c, & a - Lipid profile from within the past 365 days. Metabolic Screening () Not Applicable, patient not on a neuroleptic. OR ([x]) Patient on a neuroleptic(s) . Enter below results for Glucose or Hemoglobin A1C, and lipid panel if obtained during the last 365 days. BMI: 29.800 Blood Pressure: 111/52 Laboratory Results (If applicable): glucose = 86 (on 10/09/2016) glycos hgb A1c = 4.4 (09/27/2015) cholesterol = 191 (07/05/2017) triglcerides = 99 HDL = 44 LDL = 128 Discharge Instructions General Discharge Information Discharge Medications: Discharge Medications (dose, route, frequency, indications): (see also list of medications on discharge note from this admission on the electronic medical record) I called into the [facility] in [facility], on date of discharge, 10/22: Depakote ER, 500mg; i tab 2x/day (1,000mg daily); #60 with no refill (mood stabilization) Zyprexa, 20mg: i tab nightly at HS; #30 with no refill (clarification of thinking) Zyprexa, 5mg; i tab PRN racing thoughts (maximum of 2 doses/24 hours) (patient is currently taking a maximum 20-30mg/day of Zyprexa) (patient does not smoke cigarettes/tobacco or drink alcohol) patient also has a sufficient supply at home to continue taking: levothyroxine, 125mcg/day (thyroid supplement) pilocarpine, i drop in each eye 3x/day (glaucoma) calcitrol, 0.5mcg 2x/day (calcium management) ergocalciferol, 50,000 IU weekly (calcium management) Albuterol sulfate, 3 mL Q6H PRN for shortness of breath, wheezing Albuterol sulfate, 2 puffs Q4H PRN (SOB, wheezing) Multiple Neuroleptics: ([x]) Not Applicable OR Document below three failed attempts at monotherapy, or a plan to taper to monotherapy, or augmentation of Clozapine. () Patient's Diet: regular (or as per patient's PCP) Patient's Activity: per patient's neurologist/M.S. specialist, Martin Parker M.D., and her PCP DC Disposition: to home with Recommendations: I would recommend optimalizing dose/response to mood stabilizer, Depakote ER, and following an interval of outpatient stabilization to begin slow but continuing taper of current Zyprexa dose. Referred To: Patient was referred directly to resume ongoing skilled nursing treatment with Rand Kilpatrick APRN; next appointment is yet to be scheduled; in the meantime, patient will see Angelique Ferreira M.D., 11/13/2016 at 2:30pm and have an OPS intake with Kathleen Maldonado LCSW, on 11/03/2016 at 9:30am. Patient also has a follow up appointment with her Neurologist (and M.D. specialist), Silvio Parker M.D., 11/07/2016 at 1pm (telephone number: [phone]). Copies To: RADHA CESAR,ANGELIQUE; GASTON CESAR,ELADIA LAGUNA APRN, LCSW, KATHLEEN
--- NOTE | 2016-10-22 12:10 | CP SOUTH PROGRESS NOTE PSYCH ---
Psych (Inpt) Progress Note Progress Note Include the following elements, when applicable: Involvement in the active treatment of the patient with behavioral observations of the patient and the patient's response to the treatment. Review of the ongoing treatment process in the context of the treatment plan. Indication of how multi-disciplinary staff members are carrying out the treatment plan. Plans for future interventions and recommendations for revision of the treatment plan. Liaison with other physicians/providers. Progress Note: PSYCHIATRIST NOTE (FAMILY MEETING/DISCHARGE), 10/22/2016: I discussed this patient's slow progress to date, current mental status, treatment and discharge plans with staff team today in the daily morning ITTM and covering outreach and education social worker, Michaelle Maldonado LCSW, and I met with patient and her , son and [id number] in another family session prior to discharging her to resume her ongoing outpatient treatment with Rand Kilpatrick APRN, with next appointment to be scheduled; in the meantime, patient will see Darlin Ferreira M.D., on 11/13/2016 at 2:30pm and will have an OPS intake with on 11/03/2016 at 9:30am. Patient also has a f/u appointment scheduled with her longtime treating M.S. neurologist, Dr. Silvio Parker, on 11/07/2016 at 1pm (telephone #: [phone]). Family members, particularly her son, were impressed with how much patient has improved over the course of admission and expressed appreciation and gratitude for this, as did the patient herself. Patient was clear, coherent, goal-directed in expressed thought, euthymic and bright in affect but clearly not hypomanic, without irritability or pressure; there was no evidence of suicidal or homicidal ideation, plans, intent or impulses and patient (and family, [id number] in particular) well aware of her safety plan should patient in future ever come to believe herself at acute risk of harming herself or others. We went over all current psychotropic medications and the reasons for their prescription; patient denied any side effects and pledged she was going to continue taking her medications regularly as prescribed; serum valproic acid level this morning was marginal at 45.7mcg/ml but concentration should rise on current dose and would recommend repeating level in 1-2 weeks before considering any further upward dose adjustments. Lamictal has been slowly tapered away without complications, no evidence of rash , etc. Patient had no complaints about her M.S. today but still intends to f/u with Dr. Parker in two weeks to deal with increased pain, weakness and numbing in left leg and episodes of urinary incontinence. A bout of bronchitis responded well to a course of Zithromax. I have called into the [facility] in [place], [place] on date of discharge , 10/22/2016: Depakote ER, 500mg: i 2x/day (1,000mg daily); #60 with no refill (mood stabilization) Zyprexa, 20mg: i nightly at HS (20mg/night); #30 with no refill (to clarify thoughts/thinking) Zyprexa, 5mg: i PRN racing thoughts (max. 10mg/day); #30 with no refill (patient currently taking a maximum of 20-30mg of Zyprexa daily) (patient does not smoke cigarettes or drink alcohol) patient also has sufficient supply at home to take: levothyroxine, 125mcg daily in AM (thyroid supplement) pilocarpine, i drop in each eye 3x/day (for glaucoma) calcitriol, 0.5mcg 2x/day ergocalciferol, 50,000 IU weekly Albuterol sulfate, 3mL Q6H PRN (shortness of breath, wheezing) Albuterol sulfate, 2 puffs Q4H PRN (shortness of breath, wheezing)
[2016-10-22 12:29] VITALS: BP 111/52
[2016-10-22] MEDS ORDERED: DIVALPROEX SOD500 M2 PO (13:42)
[2016-10-22] MEDS ORDERED: OLANZAPINE10 M1 PO (13:44)
[2016-10-22] MEDS ORDERED: ALBUTEROL2.5 MG/3 M INH (13:48)
[2016-10-22] MEDS ORDERED: VENTOLIN HFA18 GM INH (13:49)
--- NOTE | 2016-10-22 15:54 | NUR ---
PT IS PRESENT ON THE UNIT, SOCIAL AND APPROPRIATE WITH PEERS AND STAFF, MOOD STABLE WITH FULL RANGE AFFECT, WHEN ASKED DIRECTLY DENIES SI/HI/HALLUCINATIONS. INFORMATION PACKET RE: BIPOLAR, PSYCHOSIS, MS GIVEN AND W-10 AND PT RESOURCE GUIDE REVIEWED AND PT DENIES QUESTIONS/CONCERNS. REPORTS OVERALL IMPROVEMENT IN MOOD/BEHAVIOR/MENTAL STATUS/SLEEP/APPETITE, NO EVIDENCE OR REPORTS OF PSYCHOTIC BEHAVIOR OR THOUGHT PROCESS, + UNDERSTANDING OF FOLLOW-UP FOR DISCHARGE, SCHEDULED TO LEAVE AFTER FAMILY MEETING AT 3PM-LESLIE.
--- NOTE | 2016-10-22 17:27 | SOCIAL WORKER PROG NOTE PSYCH ---
Social Work Progress Note Progress Note Discussed Rand in team meeting with Dr. Avila and staff and discussed progress. Dr. Avila and I met with Rand and her , son and daughter- in-law this afternoon at 2:30pm, discussed progress and discharge. Rand was calm and cooperative, no SI/HI, no psychosis, or pressured speech, angela noted. Her family agreed that she is doing well. She has an intake with myself - Michaelle Maldonado LCSW on 11/03/16 at 9:30am at [facility] and will see Dr. Ferreira on 11/13/16 at 2:30pm for a medication evaluation - as this was the soonest medication evaluation opening. She will subsequently continue to see Rand Kilpatrick APRN for medication follow-up visits. Obtained an earlier follow-up with Dr. Parker - [facility] for 11/07/16 at 1pm Ph#[phone]. Faxed the W10 and transfer to OPS. [place] IV: Chronic medical, mental health - chronic issues [place] V: 45
== END 2016-10-22 15:10 | DRG 885 ==
LOC: ERH 10:15 → CP SOUTH 16:13 → ENPENDDIS 16:13 → ERHI 16:13 → EDPENDDISTM 16:13 → CP SOUTH 18:18
PROVIDERS: Emergency Medicine; Psychiatry & Neurology Addiction Medicine; ADMIT Psychiatry & Neurology Psychiatry
DX: F31.2 Bipolar disorder, current episode manic severe with psychotic features (principal); G35 Multiple sclerosis; N18.3 Chronic kidney disease, stage 3 (moderate); E03.9 Hypothyroidism, unspecified
CPT/HCPCS: 36415; 80307; 81003; 82436; 97116-GO; 97162-GP; 97530-GO; J0456; J1200; J2060; J3101; J3230; J3490

== ENCOUNTER 2017-11-16 15:18 | Inpatient (IN) | payer OTHER, MEDICARE ==
[~2017-11-16] VITALS: Ht 162.6 cm; Wt 81.3 kg
[~2017-11-16 15:18] MED LIST changes: +ALBUTEROL2.5 MG/3 M INH; +AZITHROMYCIN250 M1; +DIVALPROEX SOD250 M3 PO; +DIVALPROEX SOD500 M2 PO; +OLANZAPINE10 M1 PO; +SERTRALINE HCL25 MG; +VENTOLIN HFA18 GM INH; +ZYPREXA ZYDIS5 M1 PO
--- NOTE | 2017-11-16 15:59 | ED PSYCHIATRIC COMPLAINT ---
History of Present Illness General Chief Complaint: Psychiatric Related Complaint Stated Complaint: PSYCH EVAL Source: patient Exam Limitations: no limitations Vital Signs & Intake/Output Vital Signs & Intake/Output Vital Signs Date Time Temp Pulse Resp B/P B/P Pulse O2 O2 Flow FiO2 Mean Ox Delivery Rate 11/16 2145 99.2 83 135/74 11/16 1915 97.8 74 20 124/64 100 Room Air 11/16 1730 97.9 75 20 141/92 99 Room Air 11/16 1530 97.9 88 20 137/82 100 Room Air Allergies Coded Allergies: rituximab (From RITUXAN) (Intermediate, ANAPHYLAXIS 09/09/16) methylprednisolone (PER PT CANT TAKE MAKES HER MANIC 09/09/16) prednisone (PER PT CANT TAKE MAKES HER MANIC 09/09/16) Uncoded Allergies: STEROIDS (Intermediate, "MAKE ME MANIC" PER PT CAN NOT TAKE ANY STEROIDS ) Triage Note: PT BIBA FROM HOME. STATES SHE IS IN KIDNEY FAILURE AND HER MD IS TRYING TO WEAN HER OFF OF LITHIUM AND SHE JUST DOESN'T FEEL RIGHT,STATES SHE HAS BEEN ON IT SINCE 2005 AND EVERY TIME THEY DECREASE IT SHE FEELS TERRIBLE Triage Nurses Notes Reviewed? yes Onset: Abrupt Duration: week(s):, constant, continues in ED, getting worse Timing: recent history Severity: moderate, severe Severity Numbers: 8 Associated Symptoms: anxiety, deppression LMP (ages 10-50): unknown : No Patient currently breastfeeds: No HPI: 67-year-old female past medical history of MS, bipolar disorder, chronic kidney disease presents for evaluation of depression and thoughts of suicide. Patient states she's been feeling gradually more depressive the past several weeks. She states that she has been tapering off of her lithium due to her chronic kidney disease and feels like she is not being able tolerate it. She states that she has tried to taper off in the past and has not been successful due to having these thoughts. She denies having actual plan. She denies any drug or alcohol use. No hallucinations no chest pain shortness of breath or any other associated symptoms. She's been taking all her medication as directed. (Kayode TANNER,Dorian) Reconcile Medications Albuterol Sulfate (Ventolin Hfa) 90 MCG HFA.AER.AD 2 PUF INH Q4P PRN SHORTNESS OF BREATH Divalproex Sodium 500 MG TABLET.DR 500 MG PO 0800,1999 mood stabilization Lamotrigine 200 MG TABLET 1 TAB PO QPM MENTAL HEALTH (Reported) Lamotrigine 100 MG TABLET 1 TAB PO QAM MENTAL HEALTH (Reported) Levothyroxine Sodium 125 MCG TABLET 1 TAB PO DAILY THYROID (Reported) Pilocarpine HCl 2 % DROPS 1 DROP OD TID RIGHT EYE - GLAUCOMA (Reported) Quetiapine Fumarate (Seroquel) 25 MG TABLET 1 TAB PO QPM mental health ( Reported) Risperidone (Risperdal) 0.5 MG TABLET 1 TAB PO BID MENTAL HEALTH (Reported) Risperidone 1 MG TABLET 1 TAB PO QPM MENTAL HEALTH (Reported) (Lauri CESAR,Myke Salazar) Past History Travel History Traveled to [place] past 21 day No Medical History Any Pertinent Medical History? see below for history Neurological: multiple sclerosis EENT: cataracts, glaucoma Cardiovascular: NONE Respiratory: NONE Gastrointestinal: NONE Hepatic: NONE Renal: NONE (Stage III), chronic kidney disease Musculoskeletal: NONE Psychiatric: bipolar disease, psychosis Endocrine: hyperparathyroidism, hypothyroidism Blood Disorders: anemia Cancer(s): NONE CAR PACKER/Reproductive: NONE History of MRSA: No History of VRE: No History of CDIFF: No Surgical History Surgical History: appendectomy, status post right talar bunionectomy and hammertoe correction of the right second toe 3 years prior to admission hip surgery PARATHYROID SURGERY Psychosocial History Who do you live with Spouse Services at Home None What is your primary language Mohawk Tobacco Use: Never used ETOH Use: denies use Illicit Drug Use: denies illicit drug use Family History Family History, If Any: BROTHER FH myocardial infarction male first degree age known MOTHER FH: diabetes mellitus SISTER FH: leukemia SISTER Hx Contributory? No (Dorian Fuentes) Review of Systems Review of Systems Constitutional: Reports: no symptoms. EENTM: Reports: no symptoms. Respiratory: Reports: no symptoms. Cardiovascular: Reports: no symptoms. GI: Reports: no symptoms. Genitourinary: Reports: no symptoms. Musculoskeletal: Reports: no symptoms. Skin: Reports: no symptoms. Neurological/Psychological: Reports: see HPI, anxiety, depressed. Hematologic/Endocrine: Reports: no symptoms. Immunologic/Allergic: Reports: no symptoms. All Other Systems: Reviewed and Negative (Dorian Fuentes) Physical Exam Physical Exam General Appearance: well developed/nourished, no apparent distress, alert, awake Head: atraumatic, normal appearance Eyes: Bilateral: normal appearance, PERRL, EOMI. Ears, Nose, Throat: normal pharynx, normal ENT inspection, hearing grossly normal Neck: normal inspection, supple, full range of motion Respiratory: normal breath sounds, chest non-tender, no respiratory distress, lungs clear Cardiovascular: regular rate/rhythm, normal peripheral pulses Gastrointestinal: normal bowel sounds, soft, non-tender, no organomegaly Extremities: normal range of motion Neurological/Psychiatric: no motor/sensory deficits, awake, agitated, alert, normal mood/affect Appearance/Memory/Insight: appropriate appearance, appropriate insight Behavoir/Eye Contact/Speech: cooperative, normal speech, good eye contact Thoughts/Hallucinations: normal thought pattern, no apparent hallucination Skin: intact, normal color, warm/dry SAD PERSONS SAD PERSONS Response Value Age <19 or >45 years? yes 1 Depression/Hopelessness? yes 2 Previous Attempts/Psych Care yes 1 Rational Thinking Loss? yes 2 Social Support? has support 0 Stated Future Intent? yes 2 Total 8 SAD PERSONS Done? yes (Kayode TANNER,Dorian) Progress Differential Diagnosis: dementia, drug intoxication, drug overdose, drug withdrawal, electrolyte abnormality Plan of Care: Orders Procedure Date/time Status Regular Diet 11/17 B Active Regular Diet 11/16 D Complete Patient Data - inpatient psych 11/16 2120 Active Admit to inpatient psych 11/16 2120 Active Vital Signs 11/16 2042 Active Inpt Psych Teach/Educate 11/16 2042 Active Nutritional Intake, Monitor 11/16 2042 Active Inpt Psych Auricular Acupunctu 11/16 2042 Active Admit to inpatient psych 11/16 1927 Active Intake & Output 11/16 1701 Complete Continuous Observation Monitor 11/16 1544 Complete URINE DRUG SCREEN FOR ER ONLY 11/16 1544 Complete URINALYSIS 11/16 1544 Complete LITHIUM 11/16 1544 Complete ETHANOL 11/16 1544 Complete COMPREHENSIVE METABOLIC PANEL 11/16 1544 Complete CBC WITHOUT DIFFERENTIAL 11/16 1544 Complete ED CRISIS PSYCH CONSULT 11/16 1544 Active Change service to 11/16 UNK Active Activity/Ambulation 11/16 UNK Active Current Medications Sig/Doreen Start time Last Medication Dose Stop Time Status Admin Lamotrigine 100 MG AT BEDTIME 11/17 2100 AC (LaMICtal) Levothyroxine Sodium 0.125 MG DAILY 11/17 0900 AC (Synthroid) Pilocarpine 1 GTT TID 11/17 09 AC Divalproex Sodium 500 MG 08,11/17 AC (Depakote) Risperidone 0.5 MG FOUR TIMES A DAY PRN 11/16 2144 AC (risperiDONE) Risperidone 1 MG BID 11/16 2134 AC (Risperidone) Albuterol Sulfate 2 PUF Q4P PRN 11/16 2129 AC (Ventolin) Laboratory Tests 11/16/17 1609: Anion Gap 13, Estimated GFR 35 L, BUN/Creatinine Ratio 14.0, Glucose 86, Calcium 8.9, Total Bilirubin 1.0, AST 16, ALT 27, Alkaline Phosphatase 51, Total Protein 6.6, Albumin 4.2, Globulin 2.4, Albumin/Globulin Ratio 1.8, CBC w Diff NO MAN DIFF REQ, RBC 4.01 L, MCV 90.5, MCH 29.8, MCHC 33.0, RDW 14.1, MPV 8.5, Gran % 65.0, Lymphocytes % 24.2, Monocytes % 7.7, Eosinophils % 2.2, Basophils % 0.9, Absolute Granulocytes 3.0, Absolute Lymphocytes 1.1 L, Absolute Monocytes 0.4, Absolute Eosinophils 0.1, Absolute Basophils 0, [place] < 0.2 L, Serum Alcohol < 10.0 11/16/17 1555: Urine Opiates Screen < 100, Methadone Screen 40, Barbiturate Screen < 60, Ur Phencyclidine Scrn < 6.00, Amphetamines Screen < 100, U Benzodiazepines Scrn < 85, Urine Cocaine Screen < 50, Urine Cannabis Screen < 5.00, Urine Color YEL, Urine Clarity CLEAR, Urine pH 6.0, Ur Specific [place] 1.015, Urine Protein NEG, Urine Ketones NEG, Urine Nitrite NEG, Urine Bilirubin NEG, Urine Urobilinogen 0.2, Ur Leukocyte Esterase NEG, Ur Microscopic EXAM NOT REQUIRED, Urine Hemoglobin NEG, Urine Glucose NEG Patient seen and evaluated. She is here with depression and suicidal thoughts. She's been trying to taper off her lithium that is causing the symptoms patient had any drug or alcohol use. No hallucinations. She's been admitted for similar situations in the past. We'll check basic labs patient will then be seen by crisis. Blood work is not significant changed. Kidney function is at baseline. Waiting for crisis recommendations. Patient signed out to Dr. Carreon pending crisis (Dorian Fuentes) Departure Departure Disposition: STILL A PATIENT Condition: Stable Clinical Impression Primary Impression: Suicidal ideation Referrals: Pb CESAR,Romain Parson (PCP/Family) Departure Forms: Customer Survey General Discharge Information (Dorian Fuentes) Psych Admission Note Psychiatric Admission: I have seen and evaluated STACY GIBBS. I have also reviewed all the pertinent lab results and diagnostic results. STACY GIBBS will be admitted to our inpatient Psychiatric unit for treatment and care. PT ON A PEC SECONDARY TO BEING GRAVELY DISABLED AND NEEDING ADMISSION. PA/PLUMBING AND HEATING MECHANIC Co-Sign Statement Statement: ED Attending supervision documentation- [X] I saw and evaluated the patient. I have also reviewed all the pertinent lab results and diagnostic results. I agree with the findings and the plan of care as documented in the PA's/PLUMBING AND HEATING MECHANIC's documentation. [X] I have reviewed the ED Record and agree with the PA's/PLUMBING AND HEATING MECHANIC's documentation. [] Additions or exceptions (if any) to the PAs/PLUMBING AND HEATING MECHANIC's note and plan are summarized below: [SEE ABOVE NOTE] (Lauri CESAR,Myke Salazar)
[2017-11-16 16:26] LABS: ABSOLUTE BASOPHIL COUNT 0 /CUMM (0.0-0.2); ABSOLUTE EOSINOPHIL COUNT 0.1 /CUMM (0.0-0.7); ABSOLUTE LYMPH COUNT 1.1 /CUMM (1.2-3.4); ABSOLUTE MONOCYTE COUNT 0.4 /CUMM (0.10-0.60); BASOPHIL % 0.9 % (0.0-2.0); EOSINOPHIL % 2.2 % (0-5); HEMATOCRIT 36.3 % (37-47); MEAN CORPUSCULAR HGB 29.8 PG (27.0-31.0); MEAN CORPUSCULAR VOLUME 90.5 FL (81.0-99.0); MEAN PLATELET VOLUME 8.5 FL (7.4-10.4); PLATELET COUNT 358 /CUMM (130-400); RBC DISTRIBUTION WIDTH 14.1 % (11.5-14.5); RED BLOOD CELL CT 4.01 /CUMM (4.20-5.40); WHITE BLOOD CELL COUNT 4.7 /CUMM (4.8-10.8)
[2017-11-16 16:41] LABS: LITHIUM < 0.2 mmol/L (0.6-1.2)
--- NOTE | 2017-11-16 19:17 | ED PSYCH CRISIS CONSULTATION ---
See Addendum Crisis Consult Basic Assessment Date of Consult: 11/16/17 Responsible Person/Accompanied By: Brought in by ambulance /sister in law accompanied Insurance Authorization: Insurance #1: Insurance name: MEDICARE A Policy number: [id number] ED Provider: Patient's ED Provider: Dorian Fuentes Primary Care Physician: Patient's PCP: Pb CESAR,Romain Parson PCP's Current Psychiatrist: Rand Kilpatrick APRN Chief Complaint: Psychiatric Related Complaint Patient's Quote: "I'm a wreck...nervous...shaky...so depressed." Present Illness: Patient brought in to [facility]'s emergency department by ambulance from home. Patient's sister-in law accompanied her here. Patient reports she is experiencing negative symptoms of bipolar disorder after a change in her psychotropic medications (taper of Lithum down to 150 mg). Patient has kidney failure and reportedly was advised by her infirmary attendant to discontinue [place]. Patient is being seen by [facility]'s outpatient psychiatry department for psychiatric medication management only (Rand Kilpatrick APRN) . Patient has refused traditional outpatient talk therapy and outpatient groups. Patient was recently started on a trial of Lamictal and Risperdal to replace [place] to manage bipolar symptoms. Patient has historical diagnosis of bipolar disorder since 2005. Of note, that same year, she lost her 19 year old son. Patient's other son is now 41 and is experiencing issues form alcohol use disorder. Patient is very worried about possibly losing him as he relapsed recently and his whereabouts are unknowns. Patient resides with her in [place]. Patient is disabled due to multiple sclerosis. Patient has no history of substance use disorder and her urine toxicology is negative for all substances. Patient presents flat with depressed mood. Patient had limited eye contact and states she is "a wreck" and has been extremely anxious, experienced racing thoughts, and asserts she has been "so very depressed." Patient reports she is pessimistic about resolving her medication issue and expressed a wish to stating "But I want to ....I cannot imagine having to go through another day like this." A [place] Suicide Severity Rating Scale (C.S.S.R.S.) was administed with identified risk factors of a wish to be , recent activating event (son' s relapse & lithium taper), clinical status concerns of hopelessness, feeling trapped, severe anxiety. Patient was asked to assess protective factors and she could not express future orientation or identify reason for living. Patient denies psychotic symptoms currently but does have a history of psychosis in 2017. Patient's AC Kilpatrick reports patient has a tendency to "decompensate quickly." HORSE DOCTOR also reports patient's symptoms have not responded well to the medicaiton changes recently. Patient's was not reachable by phone. Patient's sister in law reports patient has "turned bad" since 11/12 and was observed to be laying in bed with a hat and a picture of her son while rocking. Sister in law reports patient's is very concerned about patients behavior and functioning over the past week. Patient's [address]: [address] [place] [address] Other Phone Number: Who Do You Live With? Spouse ( (Myke Maier)) Family/Informants Interviewed: AC Kilpatrick and sister in law Nora Ramires contacted by phone Allergies - Coded Allergies: rituximab (From RITUXAN) (Intermediate, ANAPHYLAXIS 09/09/16) methylprednisolone (PER PT CANT TAKE MAKES HER MANIC 09/09/16) prednisone (PER PT CANT TAKE MAKES HER MANIC 09/09/16) Uncoded Allergies: STEROIDS (Intermediate, "MAKE ME MANIC" PER PT CAN NOT TAKE ANY STEROIDS ) Current Medications - Scheduled Medications Calcitriol 0.25 MCG CAPSULE 2 CAP PO BID VITAMIN D #360 (Reported) Entered as Reported by Elvira Watkins on 09/09/16 1536 Divalproex Sodium 500 MG TABLET.DR 500 MG PO 0800,1999 mood stabilization #28 TAB Prescribed by Willy Avila MD on 10/22/16 Ergocalciferol (Vitamin D2) (Vitamin D2) 50,000 UNIT CAPSULE 1 CAP PO QTUES SUPPLEMENT #12 (Reported) Entered as Reported by Elvira Watkins on 09/09/16 1536 Levothyroxine Sodium 125 MCG TABLET 1 TAB PO DAILY THYROID #90 (Reported) Entered as Reported by Elvira Watkins on 09/09/16 1535 Olanzapine 10 MG TABLET 10 MG PO 0800,2200 clarify thoughts/thinking #28 TAB Prescribed by Willy Avila MD on 10/22/16 Piloc[place] HCl 2 % DROPS 1 DROP OD TID RIGHT EYE - GLAUCOMA #15 (Reported) Entered as Reported by Elvira Watkins on 09/09/16 1546 Scheduled PRN Medications Albuterol Sulfate 2.5 MG/3 ML (0.083 %) VIAL.NEB 3 ML INH Q6P PRN SHORTNESS OF BREATH #1 INH Prescribed by Willy Avila MD on 10/22/16 Albuterol Sulfate (Ventolin Hfa) 90 MCG HFA.AER.AD 2 PUF INH Q4P PRN SHORTNESS OF BREATH #1 INH Prescribed by Willy Avila MD on 10/22/16 Olanzapine (Zyprexa Zydis) 5 MG TAB.RAPDIS 2.5 MG PO Q4P PRN AGITAT/ HALLUCINATION/IRRITABIL #14 TAB Prescribed by Willy Avila MD on 10/22/16 Laboratory Results: Laboratory Tests 11/16/17 1609: Anion Gap 13, Estimated GFR 35 L, BUN/Creatinine Ratio 14.0, Glucose 86, Calcium 8.9, Total Bilirubin 1.0, AST 16, ALT 27, Alkaline Phosphatase 51, Total Protein 6.6, Albumin 4.2, Globulin 2.4, Albumin/Globulin Ratio 1.8, CBC w Diff NO MAN DIFF REQ, RBC 4.01 L, MCV 90.5, MCH 29.8, MCHC 33.0, RDW 14.1, MPV 8.5, Gran % 65.0, Lymphocytes % 24.2, Monocytes % 7.7, Eosinophils % 2.2, Basophils % 0.9, Absolute Granulocytes 3.0, Absolute Lymphocytes 1.1 L, Absolute Monocytes 0.4, Absolute Eosinophils 0.1, Absolute Basophils 0, [place] < 0.2 L, Serum Alcohol < 10.0 11/16/17 1555: Urine Opiates Screen < 100, Methadone Screen 40, Barbiturate Screen < 60, Ur Phencyclidine Scrn < 6.00, Amphetamines Screen < 100, U Benzodiazepines Scrn < 85, Urine Cocaine Screen < 50, Urine Cannabis Screen < 5.00, Urine Color YEL, Urine Clarity CLEAR, Urine pH 6.0, Ur Specific [place] 1.015, Urine Protein NEG, Urine Ketones NEG, Urine Nitrite NEG, Urine Bilirubin NEG, Urine Urobilinogen 0.2, Ur Leukocyte Esterase NEG, Ur Microscopic EXAM NOT REQUIRED, Urine Hemoglobin NEG, Urine Glucose NEG Past History Past Medical History Neurological: multiple sclerosis EENT: cataracts, glaucoma Cardiovascular: NONE Respiratory: NONE Gastrointestinal: NONE Hepatic: NONE Renal: NONE (Stage III), chronic kidney disease Musculoskeletal: NONE Psychiatric: bipolar disease, psychosis Endocrine: hyperparathyroidism, hypothyroidism Blood Disorders: anemia Cancer(s): NONE 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 Physical Limitations (Interventions): uses walker, and wheelchair on CPS. MS effects mobility. Psychiatric Treatment History Psych Treatment Psychiatric Treatment Yes Inpatient Treatment Yes Outpatient Treatment Yes Location of Treatment [facility] since 2016. Inpatient at [facility] in 2017. Reason for Treatment Bipolar disorder I Dates of Treatment 2005 to present Response to Treatment Varied Diagnosis by History: Bipolar I Substance Use/Abuse History Drug Use/Abuse Substances Used/Abused No Substance Abuse Treatment Substance Abuse Treatment Past Substance Abuse [place] No Inpatient Treatment No Outpatient Treatment No Current Mental Status Mental Status Orientation: Person, Place, Situation Affect: Depressed, Flat, Sad Speech: Soft Neuro-vegetative: Anhedonia, Energy Decreased, Helpless, Loss of Interest Appearance Appearance- Dress/Hygiene: Patient dressed in hospital attire with no remarkable features. Behaviors Thought Process: WNL Thought Content: Paranoid Memory: WNL Insight: Poor SI/HI Risk Assessment Past Suicidal Ideation/Attempts No Current Suicidal Ideation/Att Yes (Wish to be ) Past Homicidal Ideation/Att: No Current Homicidal Ideation/Attempts No Degree of Intent: None Danger To: Self Gravely Disabled: Inability, Lack of Insight Risk Factors: access to lethal means, chronic/serious med cond., high anxiety/ distress, SA/MH hospitalized, lack of outcome concern Lethality Ratin PTSD Checklist PTSD Done? pt unable to participate ED Management Sitter: Yes Restraints: No (Pt calm & cooperative) DSM5/PS Stressors/Medical Prob Diagnosis' (DSM 5, Stressors, Medical): F31.4 Bipolar I disorder, Current or most recent episode depressed, Severe Current GAF: 20 Comments: Family stressors Departure Disposition Psych Medical Clearance Date: 11/16/17 Medically Cleared at: 1745 Time Started: 1744 Time Ended: 1844 Psychiatrist Consulted: Darlin Ferreira MD Date Disposition Established: 11/16/17 Time Disposition Established: 1909 Plan for Disposition - Modality: Inpatient Psychiatry Facility: [facility] Rationale for Disposition: Patient crisis evaluation reviewed with on-call psychiatrist Dr. Ferreira. Patient is gravely disabled and requires inpatient psychiatric admission to stabilize bipolar symptoms and receive psychiatric evaluation / medication management. Type of IP Admission: PEC Referrals Pb CESAR,Romain Parson (PCP/Family)
--- NOTE | 2017-11-16 20:10 | IP CRISIS DIAG ASSESS PSYCH ---
Diagnostic Assessment Basic Assessment Insurance Authorization: Insurance #1: Insurance name: MEDICARE A Policy number: [id number] Medicare primary with no managed care does not require prior authorizaiton. Primary Care Physician: Patient's PCP: Romain Ambriz MD PCP's Patient's Quote: "I'm a wreck...nervous...shaky...so depressed." Present Illness: Patient brought in to [facility]'s emergency department by ambulance from home. Patient's sister-in law accompanied her here. Patient reports she is experiencing negative symptoms of bipolar disorder after a change in her psychotropic medications (taper of Lithum down to 150 mg). Patient has kidney failure and reportedly was advised by her equine manager to discontinue [place]. Patient is being seen by [facility]'s outpatient psychiatry department for psychiatric medication management only (Rand Kilpatrick APRN) . Patient has refused traditional outpatient talk therapy and outpatient groups. Patient was recently started on a trial of Lamictal and Risperdal to replace [place] to manage bipolar symptoms. Patient has historical diagnosis of bipolar disorder since 2005. Of note, that same year, she lost her 19 year old son. Patient's other son is now 41 and is experiencing issues form alcohol use disorder. Patient is very worried about possibly losing him as he relapsed recently and his whereabouts are unknowns. Patient resides with her in [place]. Patient is disabled due to multiple sclerosis. Patient has no history of substance use disorder and her urine toxicology is negative for all substances. Patient presents flat with depressed mood. Patient had limited eye contact and states she is "a wreck" and has been extremely anxious, experienced racing thoughts, and asserts she has been "so very depressed." Patient reports she is pessimistic about resolving her medication issue and expressed a wish to stating "But I want to ....I cannot imagine having to go through another day like this." A [place] Suicide Severity Rating Scale (C.S.S.R.S.) was administed with identified risk factors of a wish to be , recent activating event (son' s relapse & lithium taper), clinical status concerns of hopelessness, feeling trapped, severe anxiety. Patient was asked to assess protective factors and she could not express future orientation or identify reason for living. Patient denies psychotic symptoms currently but does have a history of psychosis in 2017. Patient's PALLETISER OPERATOR Finesse reports patient has a tendency to "decompensate quickly." PALLETISER OPERATOR also reports patient's symptoms have not responded well to the medicaiton changes recently. Patient's was not reachable by phone. Patient's sister in law reports patient has "turned bad" since 11/12 and was observed to be laying in bed with a hat and a picture of her son while rocking. Sister in law reports patient's is very concerned about patients behavior and functioning over the past week. Patient's Address: [address] [place] [address] Other Phone Number: Who Do You Live With? Spouse ( (Myke Maier)) Feel Safe Where You Live? Yes Feel Safe in Your Relationship Yes Marital Status: Do You Have Children? Yes Ages? 41 & 19( in 2005) Primary Language? Micronesian Language(s) Spoken At Home: Micronesian Family/Informants Interviewed: AC Kilpatrick and sister in law Nora Ramires contacted by phone Allergies - Coded Allergies: rituximab (From RITUXAN) (Intermediate, ANAPHYLAXIS 09/09/16) methylprednisolone (PER PT CANT TAKE MAKES HER MANIC 09/09/16) prednisone (PER PT CANT TAKE MAKES HER MANIC 09/09/16) Uncoded Allergies: STEROIDS (Intermediate, "MAKE ME MANIC" PER PT CAN NOT TAKE ANY STEROIDS ) Current Medications - Scheduled Medications Calcitriol 0.25 MCG CAPSULE 2 CAP PO BID VITAMIN D #360 (Reported) Entered as Reported by Elvira Watkins on 09/09/16 153 Divalproex Sodium 500 MG TABLET.DR 500 MG PO 0800,1999 mood stabilization #28 TAB Prescribed by Austin CESAR,Willy Angel on 10/22/16 Ergocalciferol (Vitamin D2) (Vitamin D2) 50,000 UNIT CAPSULE 1 CAP PO QTUES SUPPLEMENT #12 (Reported) Entered as Reported by Elvira Watkins on 09/09/16 1536 Levothyroxine Sodium 125 MCG TABLET 1 TAB PO DAILY THYROID #90 (Reported) Entered as Reported by Elvira Watkins on 09/09/16 1535 Olanzapine 10 MG TABLET 10 MG PO 0800,2200 clarify thoughts/thinking #28 TAB Prescribed by Willy Avila MD on 10/22/16 [place] HCl 2 % DROPS 1 DROP OD TID RIGHT EYE - GLAUCOMA #15 (Reported) Entered as Reported by Elvira Watkins on 09/09/16 1546 Scheduled PRN Medications Albuterol Sulfate 2.5 MG/3 ML (0.083 %) VIAL.NEB 3 ML INH Q6P PRN SHORTNESS OF BREATH #1 INH Prescribed by Willy Avila MD on 10/22/16 Albuterol Sulfate (Ventolin Hfa) 90 MCG HFA.AER.AD 2 PUF INH Q4P PRN SHORTNESS OF BREATH #1 INH Prescribed by Willy Avila MD on 10/22/16 Olanzapine (Zyprexa Zydis) 5 MG TAB.RAPDIS 2.5 MG PO Q4P PRN AGITAT/ HALLUCINATION/IRRITABIL #14 TAB Prescribed by Willy Avila MD on 10/22/16 Consequences of Psych Med Use: Recently experiencing negative symptoms from Campti withdrawal / taper Comment: Campti is being tapered due to kidney complications. Lab Results: Laboratory Tests 11/16/17 1609: Anion Gap 13, Estimated GFR 35 L, BUN/Creatinine Ratio 14.0, Glucose 86, Calcium 8.9, Total Bilirubin 1.0, AST 16, ALT 27, Alkaline Phosphatase 51, Total Protein 6.6, Albumin 4.2, Globulin 2.4, Albumin/Globulin Ratio 1.8, CBC w Diff NO MAN DIFF REQ, RBC 4.01 L, MCV 90.5, MCH 29.8, MCHC 33.0, RDW 14.1, MPV 8.5, Gran % 65.0, Lymphocytes % 24.2, Monocytes % 7.7, Eosinophils % 2.2, Basophils % 0.9, Absolute Granulocytes 3.0, Absolute Lymphocytes 1.1 L, Absolute Monocytes 0.4, Absolute Eosinophils 0.1, Absolute Basophils 0, [place] < 0.2 L, Serum Alcohol < 10.0 11/16/17 1555: Urine Opiates Screen < 100, Methadone Screen 40, Barbiturate Screen < 60, Ur Phencyclidine Scrn < 6.00, Amphetamines Screen < 100, U Benzodiazepines Scrn < 85, Urine Cocaine Screen < 50, Urine Cannabis Screen < 5.00, Urine Color YEL, Urine Clarity CLEAR, Urine pH 6.0, Ur Specific [place] 1.015, Urine Protein NEG, Urine Ketones NEG, Urine Nitrite NEG, Urine Bilirubin NEG, Urine Urobilinogen 0.2, Ur Leukocyte Esterase NEG, Ur Microscopic EXAM NOT REQUIRED, Urine Hemoglobin NEG, Urine Glucose NEG Toxicology Screen Completed? Yes Results: negative Symptoms of Use: N/A Past History Past Medical History Medical History: Bleeding problems, MS Past Surgical History Surgical History appendectomy, cataract Removal, PARTIAL PARATHYROIDECTOMY R FOOT-BUNION & HAMMERTOE Abuse/Trauma History Trauma History/Current Trauma: Denies Legal History Current Legal Status: none Have you ever been arrested? No Number of Arrests: 0 Psychosocial History Strengths/Capabilities: Pt is insightful at times regarding the need for medication re-evaluation Physical Limitations (Interventions): uses walker, and wheelchair on CPS. MS effects mobility. Psychiatric Treatment History Psych Treatment Psychiatric Treatment Yes Inpatient Treatment Yes Outpatient Treatment Yes Location of Treatment [facility] since 2016. Inpatient at [facility] in 2017. Reason for Treatment Bipolar disorder I Dates of Treatment 2005 to present Response to Treatment Varied Diagnosis by History: Bipolar I Risk Factors: access to lethal means, chronic/serious med cond., high anxiety/ distress, SA/MH hospitalized, lack of outcome concern Substance Use/Abuse History Drug Use/Abuse minimum 12mo Hx Substances Used/Abused No Substance Abuse Treatment Substance Abuse Treatment Past Substance Abuse [place] No Inpatient Treatment No Outpatient Treatment No Sexual History Sexual Concerns: Not assessed due to patient's depressed / anxious mood at time of admittance. Education History Highest Level of Education: PT did not want to participate. Current Mental Status Mental Status Orientation: Person, Place, Situation Affect: Depressed, Flat, Sad Speech: Soft Neuro-vegetative: Anhedonia, Energy Decreased, Helpless, Loss of Interest Appearance Appearance- Dress/Hygiene: Patient dressed in hospital attire with no remarkable features. Behaviors Thought Process: WNL Thought Content: Paranoid Memory: WNL Insight: Poor SI/HI Risk Assessment - Minimum 6mo History- Past Suicidal Ideation/Attempts No Current Suicidal Ideation/Att Yes (Wish to be ) Past Homicidal Ideation/Att: No Current Homicidal Ideation/Attempts No Degree of Intent: None Danger To: Self Gravely Disabled: Inability, Lack of Insight Risk Factors: access to lethal means, chronic/serious med cond., high anxiety/ distress, SA/MH hospitalized, lack of outcome concern Lethality Ratin Needs/Init TX Plan/Goals: Patient requires a pschiatric evaluation in consideration of an alternative medication management plan as her lithium taper has resulted in negative symptoms related to Bipolar disorder. Patient is worried about her son and may need cognitive behavioral therapy to address this anxiety. Patient will require case management towards on-going treatment support towards this need. AUDIT-C Questionnaire: AUDIT-C Questionnaire: Response Value ETOH use in the past year Never 0 # drinks typical/day Doesn't Drink 0 6 or > drinks per occasion Never 0 Total 0 DSM5/PS Stressors/Medical Prob Diagnosis' (DSM 5, Stressors, Medical): F31.4 Bipolar I disorder, Current or most recent episode depressed, Severe Current GAF: 20 Comments: Family stressors
[2017-11-16] MEDS ORDERED: RISPERDAL0.5 M1 PO (21:36)
[2017-11-16] MEDS ORDERED: RISPERIDONE1 M1 PO (21:36)
[2017-11-16] MEDS ORDERED: LAMOTRIGINE100 M2 PO (21:38)
[2017-11-16] MEDS ORDERED: LAMOTRIGINE200 M2 PO (21:38)
[2017-11-16] MEDS ORDERED: SEROQUEL25 M1 PO (21:40)
[2017-11-16 21:45] VITALS: BP 135/74
[2017-11-17 07:56] VITALS: BP 120/75
[2017-11-17 13:06] VITALS: BP 126/58
--- NOTE | 2017-11-17 13:38 | History & Physical ---
General Information and HPI History of Present Illness: This middle-aged female was admitted to the hospital again because of abnormal mental status and abnormal behavior. Reportedly her called the ambulance and sent her to the hospital because she was screaming and yelling and was out of control because of for bipolar disorder. She has long-standing history of bipolar disorder and has been on lithium in the past along with all other psychiatric medication. She reports that she sees outpatient psychiatrist or therapist every 5 weeks or so and has been taking her medication. From medical standpoint she reports that she has multiple sclerosis for about 20 years or so and is on chemotherapy with Cytoxan by MS specialist. She reports that the other MS medications did not help her and she sees them as specialist regularly. She gets Cytoxan every month in the outpatient. She also reports she has hypothyroidism for many years and is on replacement Synthroid because of that. She also reports she had parathyroid nodules removed about one and half years ago in [place]. She is and had 2 children but one of them is and the other is alive and healthy. 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 She denies drinking any alcohol or taking any other illegal drugs and denies smoking. Allergies/Medications Allergies: Coded Allergies: rituximab (From RITUXAN) (Intermediate, ANAPHYLAXIS 09/09/16) methylprednisolone (PER PT CANT TAKE MAKES HER MANIC 09/09/16) prednisone (PER PT CANT TAKE MAKES HER MANIC 09/09/16) Uncoded Allergies: STEROIDS (Intermediate, "MAKE ME MANIC" PER PT CAN NOT TAKE ANY STEROIDS ) Home Med list Albuterol Sulfate (Ventolin Hfa) 90 MCG HFA.AER.AD 2 PUF INH Q4P PRN SHORTNESS OF BREATH Divalproex Sodium 500 MG TABLET.DR 500 MG PO 0800,1999 mood stabilization Lamotrigine 200 MG TABLET 1 TAB PO QPM MENTAL HEALTH (Reported) Lamotrigine 100 MG TABLET 1 TAB PO QAM MENTAL HEALTH (Reported) Levothyroxine Sodium 125 MCG TABLET 1 TAB PO DAILY THYROID (Reported) Pilocarpine HCl 2 % DROPS 1 DROP OD TID RIGHT EYE - GLAUCOMA (Reported) Quetiapine Fumarate (Seroquel) 25 MG TABLET 1 TAB PO QPM mental health ( Reported) Risperidone (Risperdal) 0.5 MG TABLET 1 TAB PO BID MENTAL HEALTH (Reported) Risperidone 1 MG TABLET 1 TAB PO QPM MENTAL HEALTH (Reported) Past History Travel History Traveled to [place] past 21 day No Medical History Neurological: multiple sclerosis EENT: cataracts, glaucoma Cardiovascular: NONE Respiratory: NONE Gastrointestinal: NONE Hepatic: NONE Renal: NONE (Stage III), chronic kidney disease Musculoskeletal: NONE Psychiatric: bipolar disease, psychosis Endocrine: hyperparathyroidism, hypothyroidism Blood Disorders: anemia Cancer(s): NONE CLINICAL SERVICES ASSISTANT/Reproductive: NONE History of MRSA: No History of VRE: No History of CDIFF: No Isolation History: Standard Surgical History Surgical History: appendectomy, status post right talar bunionectomy and hammertoe correction of the right second toe 3 years prior to admission hip surgery PARATHYROID SURGERY Past Family/Social History Family History Relations & Conditions if any BROTHER FH myocardial infarction male first degree age known MOTHER FH: diabetes mellitus SISTER FH: leukemia SISTER Psychosocial History Who Do You Live With? spouse Services at Home: None ETOH Use: denies use Illicit Drug Use: denies illicit drug use Functional Ability ADLs Needs Assist: dressing, toileting. IADLs Unknown: shopping, housework, finances, food prep. Review of Systems Review of Systems Constitutional: Reports: see HPI, weakness. EENTM: Denies: no symptoms. Cardiovascular: Denies: no symptoms. Respiratory: Denies: no symptoms. GI: Denies: no symptoms. Genitourinary: Denies: no symptoms. Musculoskeletal: Reports: see HPI, muscle stiffness. Skin: Denies: no symptoms. Neurological/Psychological: Reports: see HPI, anxiety, depressed, emotional problems, numbness. Hematologic/Endocrine: Denies: no symptoms. Immunologic/Allergic: Reports: see HPI, other (ms). All Other Systems: Reviewed and Negative Exam & Diagnostic Data Last 24 Hrs of Vital Signs/I&O Vital Signs Date Time Temp Pulse Resp B/P B/P Pulse O2 O2 Flow FiO2 Mean Ox Delivery Rate 11/17 1306 82 126/58 11/17 0756 96.7 91 120/75 11/16 2145 99.2 83 135/74 11/16 1915 97.8 74 20 124/64 100 Room Air 11/16 1730 97.9 75 20 141/92 99 Room Air 11/16 1530 97.9 88 20 137/82 100 Room Air Intake & Output 11/17 1600 11/17 0800 05/08 0000 Intake Total 240 Output Total Balance 240 Intake, Oral 240 Patient 179 lb Weight Physical Exam General Appearance Alert, Oriented X3, Cooperative, No Acute Distress Skin No Rashes, No Breakdown, No Significant Lesion HEENT Atraumatic, PERRLA, EOMI, Mucous Membr. moist/pink Neck Supple, No JVD, No thryomegaly, +2 Carotid Pulse wo Bruit Lymphatic Cervical nl Cardiovascular Regular Rate, Normal S1, Normal S2, No Murmurs, Gallops, Rubs Lungs Clear to Auscultation, Normal Air Movement Abdomen Normal Bowel Sounds, Soft, No Tenderness, No Hepatospenomegaly, No Masses Neurological Exam Findings: Normal Speech, Cranial Nerves 3-12 NL, muscle weakness present especially in the left leg is only 2 over 5. Better power other extremities consistent with MS Cranial Nerves II through XII: Within normal limits and intact Extremities No Clubbing, No Cyanosis, No Edema, No Tenderness/Swelling Assessment/Plan Assessment: This middle-aged woman is admitted for abnormal mental status with bipolar disorder and increased anxiety and agitation when she was brought in by an ambulance that was called by her . She claims she has been taking her medication from psychiatrist on a regular basis but she has been off lithium. She reports that she is also taking her thyroid medication and takes her Cytoxan for MS on a regular basis as outpatient once a month. She has had hypothyroidism for about 20 years and her parathyroid nodules were removed about one and half years ago in [place]. Her exam is consistent with multiple sclerosis. Her admission labs show normal electrolytes with a decrease in GFR and increased creatinine at the time of admission. Her white count and hemoglobin is normal and the liver functions are also normal. We will continue her levothyroxin in the same dose as before and give her MiraLAX for constipation that she has for a few days and she used to take it at home previous to that. She does not need any other workup or treatment at this time from medical standpoint. As Ranked By This Provider Problem List: 1. Bipolar I disorder 2. Multiple sclerosis 3. Hypothyroidism 4. Acute kidney injury 5. Bipolar disorder with psychotic features Miscellaneous Miscellaneous Documentation Attending Case Discussed With: Yary CESAR,Trent Primary Care Physician: Romain Ambriz MD Patient sees these Specialists neuro Level of Patient Care: SIRENA Mehta Attending MD Review Statement Attending Statement Attending MD Statement: examined this patient, reviewed EMR data (avail), discussed with nursing Attending Assessment/Plan: This middle-aged female with history of multiple sclerosis and hypothyroidism as well as a long-standing history of bipolar disorder is admitted for increasing agitation and depression. She is fairly stable from medical standpoint with her thyroid and gets Cytoxan for her multiple sclerosis according to the patient once a month. We can continue her levothyroxin in the same dose and give her MiraLAX for constipation but she does not require any other medication from medical standpoint
[2017-11-17 16:01] VITALS: BP 117/79
--- NOTE | 2017-11-17 16:07 | SOCIAL WORKER PROG NOTE PSYCH ---
Social Work Progress Note Progress Note Rand was in her room laying down. We met in her room. She looked distressed and apologized to me for being more in an agitated state. She talked about the difficulty she is having without [place] and not being able to be prescribed it anymore due to kidney failure. She said she had been on Depakote in the past and that she couldn't remember why it hadn't worked so she stopped it. She said she refused it this morning when Dr. Pringle talked about it, because she was afraid that she would need to be here until it was at a therapeutic level. I told her that I didn't think that was the case and that usually those things can be checked on an outpatient basis. She was advocated to go home because nothing is happening here and she feels more agitated and anxious. I encouraged her to try the Depakote so she could at least start working on things. She agreed. We discussed her status of being on a PEC and what that means. She asked about voluntary status and if she could sign herself out. I explained that it really didn't work that way, but she had the option of signing in voluntarily and then submitting a 3 day paper to terminate. I also told her she could file a Probable Cause to have a hearing within the next 72 hours. She chose not to go the route of involving Probate. I encouraged her to let me contact family for a family meeting. She told me that her son is not available due to him drinking again. I asked about her ? She said I could call him. She signed a release and gave me his cell (Myke Maier [phone]). Signed a voluntary and a 3 day paper. Called her . He will come in for 10:30am. He feels she needs to be here for awhile.
--- NOTE | 2017-11-17 16:38 | CPS PROVIDER INIT ASMT PSYCH ---
Psychiatric Admission Occupational Therapy Professor's Note Reviewed: Yes Patient Seen and Examined: Yes Identifying Information: 67 yo MWF with bipolar d/o, MS and renal failure, admitted on 11/16/17 on a PEC from ER. Chief Complaint: Depressed, coming off of lithium. Reaction to Hospitalization: Wants to leave. May file for a probable cause hearing. History of Present Illness Onset of Illness: Dx bipolar d/o 2005. Circumstances Leading to Admission: Tapering off of lithium because of renal failure. Depressed. Passive SI. Problem(s) Justifying Need for Admission: Depressed. Passive SI. Other HPI: Wants to go home. Reports there is too much going on with this medicaiton now. "My will pick me up. My mind will go blank and that will be it." Reports she hasn't been feeling well. "We've been playing with the medicaitons. I was doing really well on the lithium." Reports weaning off the lithium causes confusion, anxiety, makes her mean, "it's not me." A son from accidental OD in 2005. Other son has been drinking and his and kids left him. Sleep was good but has been down for 2-3+ weeks with medication changes. Appetite: thirsty. Energy: reports energy level is very poor. Case and treatment plan discussed in team meeting. Past Psychiatric History Past Diagnosis(es)- if any: Bipolar d/o. MS. Renal failure. Past Precipitating Factors- if any: Per Dr. Avila's note of 10/10/16: "Patient had apparently begun to decompensate around the approaching anniversary of her son, Bartolo's (10/06)." - Include inpatient and outpatient treatment Treatment History: Not in therapy. Med management at OPS at with Rand Kilpatrick APRN. Inpatient at twice before. [facility]. [facility] x[facility]. History of Suicide Attempts or Gestures No suicide attempts. Substance Abuse History: No tobacco, alcohol or drugs. Allergies: Coded Allergies: rituximab (From RITUXAN) (Intermediate, ANAPHYLAXIS 09/09/16) methylprednisolone (PER PT CANT TAKE MAKES HER MANIC 09/09/16) prednisone (PER PT CANT TAKE MAKES HER MANIC 09/09/16) Uncoded Allergies: STEROIDS (Intermediate, "MAKE ME MANIC" PER PT CAN NOT TAKE ANY STEROIDS ) Home Med List: Vitamin D2 50,000 IU weekly. Levothyroxine 137 mcg daily. Pilocarpine 1 GTT OD TID Seroquel 50 mg qhs and 25 mg daily prn. Lamictal 100 mg qAM and 200 mg QHS. Timolol 1 GTT OD daily. Calcitriol 0.5 mcg b.i.d. Albuterol prn. ?Miralax. [place] carbonate 150 mg daily. Risperdal 0.5 mg qAM and 1.5 mg qPM. 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 Other son is a drinker. Suicides: None. Social History Living Situation: Lives with . Significant Relationships (family/friends): . Surviving son's and kids left him. Education: Associates: [employer]. Vocation/Occupation: On disability. Legal: No hx arrests. Healthly Behaviors Screening Tobacco Screening Tobacco Use from ED Docu: Never used - If tobacco counseling indicated - the following topics are required. - #1 Recognizing dangerous situations. - #2 Coping Skills. - #3 Basic information about quitting. Status of Tobacco Cessation Counseling: Not Applicable Cessation Med Status Not Applicable Alcohol Screening - ETOH screen POS if BAL >=80 or Audit-C>= M4/F3 Audit-C Score from Diag Assess: 0 Blood Alcohol Level: Laboratory Tests 11/16 1609 Toxicology Serum Alcohol (<10 MG/DL) < 10.0 Alcohol Use Screening Results: Neg per Audit C &/or BAL - If ETOH counseling indicated - the following topics are required. - #1 Express concern about the patient's - drinking at unhealthy levels, include informing - of national norms for moderate drinking: - men <= 14 drinks/week, max 4 drinks/occasion - women <= 7 drinks/week, max 3 drinks/occasion - #2 Providing feedback, including linking alcohol to - negative physical effects (liver injury, hypertension) - negative emotional effects (relationship problems and - depression) - negative occupational consequences (reduced work - performance) - #3 Advising the patient to abstain from alcohol or - to drink below national norms for moderate drinking - (as listed above). Status of ETOH Use Counseling: N/A B/C NO ETOH Use Metabolic Screening - Screen if on a Neuroleptic Medication - Metabolic screening should include: - Blood Pressure, BMI, Glucose or Hgb A1c, & a - Lipid profile from within the past 365 days. Metabolic Screening () Not Applicable, patient not on a neuroleptic. OR () Patient on a neuroleptic(s) . Enter below results for Hemoglobin A1C, and lipid panel if obtained during the last 365 days. BMI: 29.400 Blood Pressure: 117/79 Laboratory Results From [facility] (If applicable): [x] Lab Cholesterol 216 MG/DL H 06/09/17 1127 Cholesterol/HDL Ratio 4 % 06/09/17 1127 HDL Cholesterol 52 mg/dL 06/09/17 1127 Hemoglobin A1c 4.5 % 02/27/17 1035 LDL Cholesterol, Calc 144 mg/dL H 06/09/17 1127 Triglycerides 103 mg/dL 06/09/17 1127 Exam and Plan Mental Status Examination Ambulation Status: Gait is unremarkable. Appearance: Was resting in bed. Got up and met with me in office. WF dressed in t-shirt and pants. Jiggling R leg. Attitude towards examiner: Mildly irritable, pressuring to leave. Psychomotor activity: No psychomotor agitation or retardation. Behavior: Pressuring for release. Quality of speech: Normal in volume, rate and tone. Affect: Mildly depressed, upset and irritable. Mood: "Ten, the worst." Sad 04/21. Anxiety maybe 01/19. Feels hopeless, helpless and worthless. Guilty: "maybe, I try not to feel guilty." Suicidal Ideation: Denies active SI. Has passive SI. Gives a safety promise for here. Homicidal Ideation: Denies HI. Hallucinations: Denies AH and VH. Paranoid/Delusional Material: Denies PI and magical hernandez. Difficulties with thought organization: Thinking is clear, logical and goal-directed. Insight: Limited. Judgment: Poor. Orientation: Ox3. Cognition: Grossly intact. Memory Function: Grossly intact. Estimate of intellectual functioning: Average. Assets/Strengths Patient Identified Assets/Strengths: "I don't have any anymore. I'm hopeless and helpless, the whole bit." Impression/Plan Impression and Plan: The patient is here with mood decompensation in the context of lithium taper to off due to renal failure. - Include all active medical diagnosis that require tx DSM 5 Diagnosis(es): Bipolar d/o, depressed. MS. Renal failure. - Initial Tx Plan for Active Psych & Medical Conditions Treatment Plan: The patient will be monitored on the unit for safety and mood disorder. Additional information is needed from . Case has been discussed with Rand Kilpatrick APRN. Patient prefers Seroquel over Risperdal. We will stop Risperdal and add prn Seroquel on top of HS Seroquel. Depakote was started. Patient was on it in the past. We have lowered Lamictal dose due to interaction with Depakote. The patient may need an antidepressant. Anticipate once clinically stable, that the patient will be discharged to home and and be referred to IOP vs. OPS. - Factors that would help patient function - in a less restrictive setting. Factors: No longer suicidal. Improved mood.
--- NOTE | 2017-11-17 19:07 | SOCIAL WORKER SOCIAL HX PSYCH ---
Social History Basic Assessment Insurance Authorization: Insurance #1: Insurance name: MEDICARE A BEH[employer] Phone number: Policy number: [id number] Group number: Authorization number: Curr Source of Income/Entitlements: [facility] Primary Care Physician: Patient's PCP: Pb CESAR,Romain Parson PCP's Primary Language? [place] Citizen Language(s) Spoken At Home: [place] Citizen Living Situation Rents or Owns Home? owns Feel Safe Where You Are Living Yes Feel Safe in Relationships? Yes Allergies - Coded Allergies: rituximab (From RITUXAN) (Intermediate, ANAPHYLAXIS 09/09/16) methylprednisolone (PER PT CANT TAKE MAKES HER MANIC 09/09/16) prednisone (PER PT CANT TAKE MAKES HER MANIC 09/09/16) Uncoded Allergies: STEROIDS (Intermediate, "MAKE ME MANIC" PER PT CAN NOT TAKE ANY STEROIDS ) Current Medications - Scheduled Medications Divalproex Sodium 500 MG TABLET.DR 500 MG PO mood stabilization #28 TAB Prescribed by Austin CESAR,Willy Angel on 10/22/16 Lamotrigine 200 MG TABLET 1 TAB PO QPM MENTAL HEALTH #30 (Reported) Entered as Reported by Vidal Jacobs on 11/16/172137 Lamotrigine 100 MG TABLET 1 TAB PO QAM MENTAL HEALTH #30 (Reported) Entered as Reported by Vidal Jacobs on 11/16/172137 Levothyroxine Sodium 125 MCG TABLET 1 TAB PO DAILY THYROID #90 (Reported) Entered as Reported by Elvira Watkins on 09/09/16 1535 Last Taken: 150mcg on 11/16/17 Pilocarpine HCl 2 % DROPS 1 DROP OD TID RIGHT EYE - GLAUCOMA #15 (Reported) Entered as Reported by Elvira Watkins on 09/09/16 1546 Quetiapine Fumarate (Seroquel) 25 MG TABLET 1 TAB PO QPM mental health #90 ( Reported) Entered as Reported by Vidal Jacobs on 11/16/17 214 Risperidone (Risperdal) 0.5 MG TABLET 1 TAB PO BID MENTAL HEALTH #60 ( Reported) Entered as Reported by Vidal Jacobs on 11/16/17 213 Risperidone 1 MG TABLET 1 TAB PO QPM MENTAL HEALTH #60 (Reported) Entered as Reported by Vidal Jacobs on 11/16/176 Scheduled PRN Medications Albuterol Sulfate (Ventolin Hfa) 90 MCG HFA.AER.AD 2 PUF INH Q4P PRN SHORTNESS OF BREATH #1 INH Prescribed by Willy Avila MD on 10/22/16 Discontinued Medications Albuterol Sulfate 2.5 MG/3 ML (0.083 %) VIAL.NEB 3 ML INH Q6P PRN SHORTNESS OF BREATH #1 INH Discontinued reason: Changed how to take Calcitriol 0.25 MCG CAPSULE 2 CAP PO BID VITAMIN D #360 (Reported) Discontinued reason: Changed to different med Ergocalciferol (Vitamin D2) (Vitamin D2) 50,000 UNIT CAPSULE 1 CAP PO QTUES SUPPLEMENT #12 (Reported) Discontinued reason: Changed to different med Olanzapine (Zyprexa Zydis) 5 MG TAB.RAPDIS 2.5 MG PO Q4P PRN AGITAT/ HALLUCINATION/IRRITABIL #14 TAB Discontinued reason: Changed to different med Olanzapine 10 MG TABLET 10 MG PO 0800,2200 clarify thoughts/thinking #28 TAB Discontinued reason: Changed to different med Past History Past Medical History Neurological: multiple sclerosis EENT: cataracts, glaucoma Cardiovascular: NONE Respiratory: NONE Gastrointestinal: NONE Hepatic: NONE Renal: NONE (Stage III), chronic kidney disease Musculoskeletal: NONE Psychiatric: bipolar disease, psychosis Endocrine: hyperparathyroidism, hypothyroidism Blood Disorders: anemia Cancer(s): 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 was 12yr old - her Father (he fell from a tree). She was raised by her mother. Has 5 siblings. 2 are . Primary Childhood Caretakers: father, mother Family Life During Childhood: "goog loving" DCF Involvement? No Mother's Age (Current/): 83 Relationship w/Mother: 83yo, was close to Mother Father's Age (Current/): 67 Relationship w/Father: We were not close. Father when Pt. was 12yrs old. Any Sibling(s)? Yes Sibling's Gender(s)/Age(s): male Sibling 1:, female Sibling 2:, female Sibling 3:, female Sibling 4:, female Sibling 5: Relationship w/Sibling(s): 2 siblings - Roxi () was Bipolar - PT unable to elaborate, Other sister - Jinny (Pt. unable to elaborate. Relationship w/Friends: "I have alot of friends" Family Psych/Sub Abuse/Add Hx: diagnosis Number of Pregnancies: 2 Number of Miscarriages: 1 Number of Abortions: 0 Abuse/Trauma History Trauma History/Current Trauma: Denies Legal History Current Legal Status: none Have you ever been arrested No Number of Arrests: 0 Hx of Juvenile Legal Charges? No Hx of Adult Legal Charges? No Psychosocial History Primary Support System: , sibling(s), son Strengths/Capabilities: Pt is insightful at times regarding the need for medication re-evaluation Weaknesses: having MS feeling like giving up on life Physical Limitations (Interventions): uses walker, and wheelchair on CPS. MS effects mobility. Last Physical: 2018 History of Seizures? No History of Blackouts? No ADL Limitations: Yes [place]/Social/Peer Relations some friends Meaningful Activities: crossword puzzles, unable to do this, I used to read and write everything is hard difficult now Childhood Jain: Adventism Current Synagogue Affiliation: Adventism Is Spirituality Important to You? No Patient's Ethnicity: Frisian Cultural/Ethnic Issues: None Are There Developmental Issues? No Milestones Achieved: WNL Psychiatric Treatment History Psych Treatment Inpatient Treatment Yes Outpatient Treatment Yes Location of Treatment [facility] since 2017. Inpatient at [facility] in 2017. Reason for Treatment Bipolar disorder I Dates of Treatment 2006 to present Response to Treatment Varied Treatment of Prior Episodes: Unknown Diagnosis: Bipolar I Psychodynamic Issues: of son, Bipolar illness Risk Factors: access to lethal means, chronic/serious med cond., high anxiety/ distress, SA/MH hospitalized, lack of outcome concern Substance Use/Abuse History Drug Use/Abuse:Min 12 mo hx Substance Used/Abused No History Symptoms of Use: N/A Substance Abuse Treatment Substance Abuse Treatment Inpatient Treatment No Outpatient Treatment No Sexual History Sexually Active Yes # of partners 1 Sexual Orientation Heterosexual Use of Protection No Education History Highest Level of Education: some college Highest Grade Completed: [employer] Number of College Years: 2 College Degree/Major: [employer] Preferred Learning Style: experiential HX of Learning Difficulties: None reported Barriers to Learning: None reported Special Communication Needs: None reported Employment History Employment Disability Not in Labor Force: Disabled No. of Jobs in Last 5 Years: 0 History Have You Been in The ? No Current Mental Status Mental Status Orientation: Person, Place, Situation Affect: Depressed, Flat, Sad Speech: Soft Neuro-vegetative: Anhedonia, Energy Decreased, Helpless, Loss of Interest Appearance Appearance- Dress/Hygiene: Patient dressed in hospital attire with no remarkable features. Behaviors Thought Process: WNL Thought Content: Paranoid Memory: WNL Insight: Poor SI/HI Risk Assessment Past Suicidal Ideation/Attempts No Current Suicidal Ideation/Att Yes (Wish to be ) Past Homicidal Ideation/Att: No Current Homicidal Ideation/Attempts No Degree of Intent: None Danger To: Self Gravely Disabled: Inability, Lack of Insight Lethality Ratin - Conclusion and Recommendations for treatment - and discharge planning
[2017-11-17 20:06] VITALS: BP 135/63
[2017-11-18 09:03] VITALS: BP 122/74
--- NOTE | 2017-11-18 11:36 | SOCIAL WORKER PROG NOTE PSYCH ---
Social Work Progress Note Progress Note Rand was having a hard time in her room around 9am. She was crying and stating she was having a hard time. She said she couldn't get out of bed and shower, she couldn't attend the meeting with her and wanted me to cancel it. She was given a PRN Ativan shortly after that, which seemed to help her calm down. She was able to be present for the family meeting with her . Dr. Pringle was also present for this meeting. Her was very effective in helping Jatinder understand that right now she needs to focus on herself and not worry about things going on at home or with family. Her seems to have everything at home under control and does alot of the housework and responsibilities at home on a regular basis. Dr. Pringle reviewed her current medications and discussed changes that would help Rand. She agreed to an increase in Seroquel. Talked about the possibility of adding some Klonopin or Ativan to help. She is continuing to have some racing thoughts. She described her mood as being "happier" after she took the Ativan. She rates her sadness at a 5-6 with 10 being most severe and her anxiety at a 6. She feels hopeless, helpless, and worthless. She denies feeling guilty. Reports no SI/HI, no AH/VH , but states she does want to be when asked if she wishes she were . Her said it took alot to get her into the hospital due to her ambivalence about getting help. Asked what her fears were about staying? She said she just likes to be home and misses some of the comforts of home. After more discussion she agreed to rescind the 3 day paper and work with us on a plan. Encouraged her to go to some groups today and not isolate.
[2017-11-18 12:22] VITALS: BP 131/80
--- NOTE | 2017-11-18 14:36 | CP SOUTH PROGRESS NOTE PSYCH ---
Psych (Inpt) Progress Note Progress Note Include the following elements, when applicable: Involvement in the active treatment of the patient with behavioral observations of the patient and the patient's response to the treatment. Review of the ongoing treatment process in the context of the treatment plan. Indication of how multi-disciplinary staff members are carrying out the treatment plan. Plans for future interventions and recommendations for revision of the treatment plan. Liaison with other physicians/providers. Progress Note: Case and treatment plan discussed in team meeting. Staff reports that the patient is denying suicidal ideation. She was observed to be crying. Couple's meeting was scheduled with for 10:30 AM. Patient had a lot of anxiety. She refused Seroquel 25 mg prn, apparently because she did not think it to be a sufficient dose. Patient received a now dose of Ativan 1 mg and found it beneficial. Patient seen at 10:38 a.m. in the context of couple's meeting with and social science professor, Nanda. reported that the patient says to people "I have MS, leave me alone, I'm sick." Patient feels hopeless about things getting better. Wants to be home on Thursday. Wants discharge because it is just not home here. Worried about her son. Reports past treatment with Klonopin made her crazy. We discussed resumption of lithium and that it would inevitably lead to kidney failure and the need for dialysis. Patient does not want dialysis. Affect is calmer now. Mood is happier. Rates sad mood maybe about 5-6/10. Rates anxiety 6/10 after having received Ativan. Feels hopeless, helpless and worthless but not guilty. Denies active suicidal ideation. Reports passive suicidal ideation and gives a safety promise. Denies homicidal ideation. Denies auditory and visual hallucinations (although reportedly talks to her son) and denies paranoid ideation. Reports sleep was poor with Seroquel 50 mg and requests a dose increase. We will increase Seroquel bedtime dose to 100 mg. Describes appetite as hungry all the time but tries not to eat. Energy is described as not good. IMPRESSION: Slow progress. Continue present treatment plan. Patient is agreeing to remain on Depakote. We will change prn Seroquel to 50 mg every 4 hours prn and we will change bedtime Seroquel to 100 mg. Patient apparently rescinded her termination of voluntary form.
[2017-11-18 15:52] VITALS: BP 105/73
[2017-11-18 19:35] VITALS: BP 138/79
[2017-11-19 07:27] VITALS: BP 120/57
[2017-11-19 12:21] VITALS: BP 131/70
--- NOTE | 2017-11-19 13:46 | CP SOUTH PROGRESS NOTE PSYCH ---
Psych (Inpt) Progress Note Progress Note Include the following elements, when applicable: Involvement in the active treatment of the patient with behavioral observations of the patient and the patient's response to the treatment. Review of the ongoing treatment process in the context of the treatment plan. Indication of how multi-disciplinary staff members are carrying out the treatment plan. Plans for future interventions and recommendations for revision of the treatment plan. Liaison with other physicians/providers. Progress Note: Case and treatment plan discussed in team meeting. Staff reports that the patient is denying suicidal ideation. Seems more focused on her son then on herself. Appearing to be functioning better. Patient seen at 10:14 AM. She was in group but got up to meet with me in office. Using a walker to help with ambulation. Reports doing fine, better. States that her son went to the scene of his 's minor car accident and he got into a confrontation with the other automation driver. Patient's son reportedly was intoxicated at the time and was sent to [facility] and signed himself out. He was brought to [facility]'s emergency room and he reportedly will be admitted for medical detox in the context of history of seizures. Patient seems less pressured today. She is less irritable. Smiling some. Reports she is coping better with her son's situation because she is here. Describes mood as "oh, it's up there," even though she is depressed. She is pleased that her son is at rock bottom and now will be getting some help. Rates mood 8/10 with 10 being best. Rates sad mood 6/10 and anxiety 6-7/10 with 10 being worst. Feels less hopeless, helpless and worthless. Denies feeling guilty. Denies active suicidal ideation. Reports she has passive suicidal ideation but much less so than before. Rates passive suicidal ideation 3/10 with 10 being worst, whereas it was 10/10. Denies homicidal ideation. Denies auditory and visual hallucinations and paranoid ideation. Reports sleep is excellent and appetite is always good. Reports energy level is good today. Tolerating medications well, without complaint. IMPRESSION: Slow progress. Continue present treatment plan. We will be checking a Depakote level on Thursday. Anticipate discharge on Thursday.
[2017-11-19 16:21] VITALS: BP 116/79
--- NOTE | 2017-11-19 16:40 | SOCIAL WORKER PROG NOTE PSYCH ---
Social Work Progress Note Progress Note Rand shared that her son Myke ultimately ended up at [facility] ED and admitted to the medical floor for detox last night. She is so happy that he is safe and being taken care of. She talked about how her son Armando is helping guide this intervention. She feels much more positive today. She reported she slept 8 hours, which hadn't happened in a long time. She did say she felt a little hypomanic today. I wouldn't have known this by talking to her. She said she felt more talkative today and felt the need to keep busy. She is trying to distract herself on purpose because she doesn't want to think about her son being upstairs. She would love to see her son right now, but she knows that can't happen. She is looking forward to seeing [facility] She started making a list of things that she wants to get back to doing when she gets home. Things like: going shopping at [employer] and seeing her granddaughter's softball games. She said she had stopped doing those things and is starting to feel like she can motivate herself to do those things again.
[2017-11-19 19:48] VITALS: BP 127/59
[2017-11-20 07:41] VITALS: BP 103/70
--- NOTE | 2017-11-20 10:24 | SOCIAL WORKER PROG NOTE PSYCH ---
Social Work Progress Note Progress Note Rand showered this morning. Told me that she talked to her son Myke and was glad to hear that they are working with him on a plan to go to rehab. She is anxious about his plans and getting to see him before he leaves if possible. He may end up going out of state. She said she feels a little more sad today. She said she is now realizing that she needs to be here and is looking to stay in the hospital at least until Thursday. She said she feels safer here right now and doesn't know if she can face the world yet. With Mother's Day being Thursday she would also feel better about being here. Had a nice visit with her friend last night. She may see her again today. Said her is anticipating her coming home early next week. Talked about setting up her OPS appts. I called Mr. Maier to see what his thoughts were about Rand and how she is doing. He said she was sounding better. I told him we are thinking of possible d/c for today instead of next week, because of her improvements. He said he would like to see her be able to stay through the weekend, but understands if she is not meeting criteria for inpatient any longer. He is working today and can pick her up at 5pm. Scheduled an intake at OPS with Dr. Russell for 11/23 at 1:30pm. She also has a scheduled appt. with Rand Finesse SHEN on 12/31 8:30am. Reviewed this information with Rand. She is looking to contact a friend and possibly have her pick her up and go out to eat. Mentioned Mother's Day being hard and she will call her Sister about making plans. Encouraged her to do so. She seemed okay with leaving today and said "I'll be okay."
[2017-11-20 12:12] VITALS: BP 124/76
[2017-11-20] MEDS ORDERED: VITAMIN D250000 UNIT PO (15:11)
[2017-11-20] MEDS ORDERED: TIMOLOL MALEATE5 M4 OD (15:11)
[2017-11-20] MEDS ORDERED: LEVOTHYROXINE137 MCG PO (15:11)
[2017-11-20] MEDS ORDERED: QUETIAPINE FUM100 M1 PO (15:11)
[2017-11-20] MEDS ORDERED: LAMOTRIGINE100 M2 PO (15:11)
[2017-11-20] MEDS ORDERED: SEROQUEL50 M1 PO (15:11)
[2017-11-20] MEDS ORDERED: DIVALPROEX SOD500 M2 PO (15:11)
[2017-11-20] MEDS ORDERED: CALCITRIOL0.25 MC1 PO (15:11)
--- NOTE | 2017-11-20 15:17 | Patient Discharge Instructions ---
Psych Discharge Inst General Discharge Information Reason for Admission: Tapering off of lithium because of renal failure. Depressed. Passive SI. Psy Discharge Primary Diag+ Bipolar d/o, depressed Psy Discharge Secondary Diag+ Multiple sclerosis Renal failure Summary Tests/Major Procedures Lab ALT 27 U/L 11/16/17 1609 AST 16 U/L 11/16/17 1609 Amylase 168 U/L H 06/09/17 1127 Amylase 112 U/L H 11/16/17 1609 BUN 21 mg/dL H 11/16/17 1609 Calcium 8.9 mg/dL 11/16/17 1609 Carbon Dioxide 26 mmol/L 11/16/17 1609 Chloride 104 mmol/L 11/16/17 1609 Cholesterol 216 MG/DL H 06/09/17 1127 Cholesterol/HDL Ratio 4 % 06/09/17 1127 Creatinine 1.5 mg/dL H 11/16/17 1609 Estimated GFR 35 ml/min L 11/16/17 1609 Free T4 2.08 ng/dL 10/29/17 1100 Glucose 86 mg/dL 11/16/17 1609 HDL Cholesterol 52 mg/dL 06/09/17 1127 Hemoglobin A1c 4.5 % 02/27/17 1035 LDL Cholesterol, Calc 144 mg/dL H 06/09/17 1127 Lipase 37 U/L 11/16/17 1609 Potassium 4.0 mmol/L 11/16/17 1609 Sodium 142 mmol/L 11/16/17 1609 TSH 1.180 uIU/mL 10/29/17 1100 Triglycerides 103 mg/dL 06/09/17 1127 Absolute Lymphocytes 1.1 /CUMM L 11/16/17 1609 Hct 36.3 % L 11/16/17 1609 Hgb 11.9 G/DL L 11/16/17 1609 Plt Count 358 /CUMM 11/16/17 1609 RBC 4.01 /CUMM L 11/16/17 1609 WBC 4.7 /CUMM L 11/16/17 1609 Mackay < 0.2 mmol/L L 11/16/17 1609 Serum Alcohol < 10.0 MG/DL 11/16/17 1609 Studies Pending at DC: None. Patient Instructions Contact Information Your Psychiatrist on [facility] was Yary CESAR,Trent * If you are experiencing an emergency related to this hospitalization, please call [phone] to contact the treating psychiatrist or the psychiatrist-on- call. * To Request a copy of your medical records, please contact the Medical Records Department at [phone]. * To request results of studies pending at the time of discharge, please call [phone]. * Continue your Medications until directed to stop by your Healthcare provider. General Medication Information Please continue to take your new medications and your continued home medications , unless otherwise indicated on your discharge medication list, or unless directed by your MD or GRINDER SET UP OPERATOR THREAD TOOL to stop them. Special Instructions Diet Regular Activity As Tolerated Other Inst/Recommendations Please follow up with maxillofacial surgeon and neurologist. - Tobacco Use Treatment Offered Post DC Medications Offered: Not Applicable Post DC Tobacco Treatment Plan: Not Applicable - EtOH/Drug Use D/O Treatment Offered Post DC Medications Offered: NA-No EtOH/Drug Use D/O Post DC EtOH/SubAbuse TX Plan: NA-No EtOH/Drug Use D/O Metabolic Screening () Not Applicable, patient not on a neuroleptic. OR () Patient on a neuroleptic(s) . Enter below results for Hemoglobin A1C, and lipid panel if obtained during the last 365 days. BMI: 29.400 Blood Pressure: 124/76 Laboratory Results From [facility] (If applicable): [x] Lab Cholesterol 216 MG/DL H 06/09/17 1127 Cholesterol/HDL Ratio 4 % 06/09/17 1127 HDL Cholesterol 52 mg/dL 06/09/17 1127 Hemoglobin A1c 4.5 % 02/27/17 1035 LDL Cholesterol, Calc 144 mg/dL H 06/09/17 1127 Triglycerides 103 mg/dL 06/09/17 1127 Advance Directives Does the Patient have Medical Advance Directives No/Refused further info Does Pt have Psychiatric Advance Directives? No/Refused further info Does Patient have a Designated Surrogate Decision Maker: No Information About Psychiatric Advance Directives Provided? Refused Discharge Plan Post Hospital Treatment Plan: Returning to home and . PLEASE HAVE DEPAKOTE LEVEL CHECKED AM 11/21/17 BEFORE MORNING DEPAKOTE DOSE.
--- NOTE | 2017-11-20 15:24 | CP SOUTH PROGRESS NOTE PSYCH ---
Psych (Inpt) Progress Note Progress Note Include the following elements, when applicable: Involvement in the active treatment of the patient with behavioral observations of the patient and the patient's response to the treatment. Review of the ongoing treatment process in the context of the treatment plan. Indication of how multi-disciplinary staff members are carrying out the treatment plan. Plans for future interventions and recommendations for revision of the treatment plan. Liaison with other physicians/providers. Progress Note: Case an dtreatment plan discussed is team meeting. Staff reports that the patient is looking well and is doing better every day. Expecting discharge on Thursday as previously discussed. Patient seen with medical student at 10:21 AM. Patient was in group prior to meeting with us in office. States she is okay. Feels a little anxious. Reports her son was admitted upstairs for a medical detox. Affect is calm and euthymic. Rates mood 6-7/10 with 10 being best. Rates sad mood about 8/10 and anxiety 4/10. Denies feeling hopeless, helpless, worthless or guilty. Denies active and passive suicidal ideation. Denies homicidal ideation. Denies auditory and visual hallucinations and paranoid ideation. Reports that she slept okay but slept better the previous night. Appetite is good. Energy is not bad. Tolerating medications well, without complaint. Feels ready and safe for discharge. IMPRESSION: Condition improved. Okay for discharge today to home and with referral to intake on Thursday with Dr. Mario Russell. I have provided the patient with a prescription to have a Depakote level drawn tomorrow morning as a trough.
--- NOTE | 2017-11-20 15:31 | DISCHARGE SUMMARY REPORT-PSYCH ---
Visit Information Visit Dates/Diagnosis' Admission Date: 11/16/17 Discharge Date: 11/20/17 Reason for Admission: Tapering off of lithium because of renal failure. Depressed. Passive SI. Psy Discharge Primary Diag: Bipolar d/o, depressed Psy Discharge Secondary Diag: Multiple sclerosis Renal failure Hospital Course Significant Lab Findings: Lab ALT 27 U/L 11/16/17 1609 AST 16 U/L 11/16/17 1609 Amylase 168 U/L H 06/09/17 1127 Amylase 112 U/L H 11/16/17 1609 BUN 21 mg/dL H 11/16/17 1609 Calcium 8.9 mg/dL 11/16/17 1609 Carbon Dioxide 26 mmol/L 11/16/17 1609 Chloride 104 mmol/L 11/16/17 1609 Cholesterol 216 MG/DL H 06/09/17 1127 Cholesterol/HDL Ratio 4 % 06/09/17 1127 Creatinine 1.5 mg/dL H 11/16/17 1609 Estimated GFR 35 ml/min L 11/16/17 1609 Free T4 2.08 ng/dL 10/29/17 1100 Glucose 86 mg/dL 11/16/17 1609 HDL Cholesterol 52 mg/dL 06/09/17 1127 Hemoglobin A1c 4.5 % 02/27/17 1035 LDL Cholesterol, Calc 144 mg/dL H 06/09/17 1127 Lipase 37 U/L 11/16/17 1609 Potassium 4.0 mmol/L 11/16/17 1609 Sodium 142 mmol/L 11/16/17 1609 TSH 1.180 uIU/mL 10/29/17 1100 Triglycerides 103 mg/dL 06/09/17 1127 Absolute Lymphocytes 1.1 /CUMM L 11/16/17 1609 Hct 36.3 % L 11/16/17 1609 Hgb 11.9 G/DL L 11/16/17 1609 Plt Count 358 /CUMM 11/16/17 1609 RBC 4.01 /CUMM L 11/16/17 1609 WBC 4.7 /CUMM L 11/16/17 1609 Mariano Colon < 0.2 mmol/L L 11/16/17 1609 Serum Alcohol < 10.0 MG/DL 11/16/17 1609 Course Complications: None. Consultations: The patient was seen for admission H&P by Dr. Noble Mendieta. Per his note of : "Assessment: This middle-aged woman is admitted for abnormal mental status with bipolar disorder and increased anxiety and agitation when she was brought in by an ambulance that was called by her . She claims she has been taking her medication from psychiatrist on a regular basis but she has been off lithium. She reports that she is also taking her thyroid medication and takes her Cytoxan for MS on a regular basis as outpatient once a month. She has had hypothyroidism for about 20 years and her parathyroid nodules were removed about one and half years ago in [place]. Her exam is consistent with multiple sclerosis. Her admission labs show normal electrolytes with a decrease in GFR and increased creatinine at the time of admission. Her white count and hemoglobin is normal and the liver functions are also normal. We will continue her levothyroxin in the same dose as before and give her MiraLAX for constipation that she has for a few days and she used to take it at home previous to that. She does not need any other workup or treatment at this time from medical standpoint." Allergies: Coded Allergies: rituximab (From RITUXAN) (Intermediate, ANAPHYLAXIS 09/09/16) methylprednisolone (PER PT CANT TAKE MAKES HER MANIC 09/09/16) prednisone (PER PT CANT TAKE MAKES HER MANIC 09/09/16) Uncoded Allergies: STEROIDS (Intermediate, "MAKE ME MANIC" PER PT CAN NOT TAKE ANY STEROIDS ) Hospital Course/TX Response: The patient was monitored on the unit for safety and mood disturbance. She participated in multimodal treatments on the unit. Mariano Colon was not restarted in light of renal failure. The patient had some reluctance about Depakote but then began it at 500 mg twice daily. Because she is now on Depakote, Lamictal dose was reduced to 100 mg daily. Patient received a one-time order of po Ativan for agitation and she responded very well to this single dose. Bedtime Seroquel was increased to 100 mg. Prn Seroquel was added. Mood and affect have improved dramatically. Progress note from date of discharge, 11/29/17: Case and treatment plan discussed is team meeting. Staff reports that the patient is looking well and is doing better every day. Expecting discharge on Thursday as previously discussed. Patient seen with medical student at 10:21 AM. Patient was in group prior to meeting with us in office. States she is okay. Feels a little anxious. Reports her son was admitted upstairs for a medical detox. Affect is calm and euthymic. Rates mood 6-7/10 with 10 being best. Rates sad mood about 8/10 and anxiety 4/10. Denies feeling hopeless, helpless, worthless or guilty. Denies active and passive suicidal ideation. Denies homicidal ideation. Denies auditory and visual hallucinations and paranoid ideation. Reports that she slept okay but slept better the previous night. Appetite is good. Energy is not bad. Tolerating medications well, without complaint. Feels ready and safe for discharge. IMPRESSION: Condition improved. Okay for discharge today to home and with referral to intake on Thursday with Dr. Maura Russell. I have provided the patient with a prescription to have a Depakote level drawn tomorrow morning as a trough. Discharge HBIPS - Tobacco Use Treatment Offered Post DC Medications Offered: Not Applicable Post DC Tobacco Treatment Plan: Not Applicable - EtOH/Drug Use D/O Treatment Offered Post DC Medications Offered: NA-No EtOH/Drug Use D/O Post DC EtOH/SubAbuse TX Plan: NA-No EtOH/Drug Use D/O Metabolic Screening - Screen if on a Neuroleptic Medication - Metabolic screening should include: - Blood Pressure, BMI, Glucose or Hgb A1c, & a - Lipid profile from within the past 365 days. Metabolic Screening () Not Applicable, patient not on a neuroleptic. OR () Patient on a neuroleptic(s) . Enter below results for Hemoglobin A1C, and lipid panel if obtained during the last 365 days. BMI: 29.400 Blood Pressure: 124/76 Laboratory Results From [facility] (If applicable): [x] Lab Cholesterol 216 MG/DL H 06/09/17 1127 Cholesterol/HDL Ratio 4 % 06/09/17 1127 HDL Cholesterol 52 mg/dL 06/09/17 1127 Hemoglobin A1c 4.5 % 02/27/17 1035 LDL Cholesterol, Calc 144 mg/dL H 06/09/17 1127 Triglycerides 103 mg/dL 06/09/17 1127 Discharge Instructions General Discharge Information Multiple Neuroleptics: ([x]) Not Applicable OR Document below three failed attempts at monotherapy, or a plan to taper to monotherapy, or augmentation of Clozapine. () Discharge Diet Regular Discharge Activity As Tolerated DC Disposition: Returning to home and . Referrals Ordered Referrals Provider Referral 11/23/17 For Groups: Outpatient Psychiatry [facility]patient [facility]iatry Intake 11/23/17 1:30pm with Dr. [place] [address] Provider Referral 12/31/17 For Groups: Outpatient Psychiatry [facility] appt. with Rand Kilpatrick AC 12/31/17 8:30[place] [id number] Prescriptions Stop taking the following medications: Levothyroxine Sodium (Levothyroxine Sodium) 125 MCG TABLET ORAL DAILY Qty = 90 Risperidone (Risperdal) 0.5 MG TABLET ORAL TWICE DAILY Qty = 60 Risperidone (Risperidone) 1 MG TABLET ORAL Every night Qty = 60 Lamotrigine (Lamotrigine) 200 MG TABLET ORAL Every night Qty = 30 Quetiapine Fumarate (Seroquel) 25 MG TABLET ORAL Every night Qty = 90 Calcitriol (Calcitriol) 0.25 MCG CAPSULE ORAL TWICE DAILY Qty = 360 Ergocalciferol (Vitamin D2) (Vitamin D2) 50,000 UNIT CAPSULE ORAL EVERY THURSDAY Qty = 12 Albuterol Sulfate (Albuterol Sulfate) 2.5 MG/3 ML (0.083 %) VIAL.NEB Inhale through mouth EVERY SIX HOURS NEEDED as needed for SHORTNESS OF BREATH Qty = 1 Olanzapine (Olanzapine) 10 MG TABLET ORAL 0800,2200 Qty = 28 Olanzapine (Zyprexa Zydis) 5 MG TAB.RAPDIS ORAL EVERY 4 HOURS NEEDED as needed for AGITAT/HALLUCINATION/IRRITABIL Qty = 14 Continue taking these medications: Pilocarpine HCl (Pilocarpine HCl) 2 % DROPS 1 DROP Right Eye THREE TIMES DAILY Qty = 15 Comments: Last Taken:10/22/16 Time:1000 Albuterol Sulfate (Ventolin Hfa) 90 MCG HFA.AER.AD 2 Puff Inhale through mouth EVERY 4 HOURS NEEDED as needed for SHORTNESS OF BREATH Qty = 1 Comments: Last Taken:10/17/16 Time:1999 Divalproex Sodium (Divalproex Sodium) 500 MG TABLET. 500 Milligram ORAL Qty = 28 This prescription has been renewed Start taking the following new medications: Quetiapine Fumarate (Seroquel) 50 MG TABLET 1 Tablet ORAL EVERY 4 HOURS NEEDED as needed for ANXIETY/AGITATION/ INSOMNIA Qty = 28 No Refills Quetiapine Fumarate (Quetiapine Fumarate) 100 MG TABLET 1 Milligram ORAL AT BEDTIME Qty = 14 No Refills Timolol Maleate (Timolol Maleate) 0.5 % DROPS 1 Drop Right Eye DAILY Qty = 1 No Refills Levothyroxine Sodium (Levothyroxine Sodium) 137 MCG TABLET 1 Tablet ORAL DAILY BEFORE BREAKFAST Qty = 14 No Refills Calcitriol (Calcitriol) 0.25 MCG CAPSULE 0.5 Microgram ORAL TWICE DAILY Qty = 28 No Refills Ergocalciferol (Vitamin D2) (Vitamin D2) 50,000 UNIT CAPSULE 50,000 International Unit ORAL EVERY THURSDAY Qty = 2 No Refills The following medications have been changed: Old: Lamotrigine (Lamotrigine) 100 MG TABLET 1 Tablet ORAL Every Morning Qty = 30 New: Lamotrigine (Lamotrigine) 100 MG TABLET 1 Tablet ORAL Every Morning Qty = 14 Other Inst/Recommendations Please follow up with manager staffing and neurologist. Studies Pending at Discharge None. Copies To: Eugenie Kilpatrick APRN, MD,MAURA
[2017-11-20 15:36] VITALS: BP 107/54
--- NOTE | 2017-11-23 10:32 | SOCIAL WORKER PROG NOTE PSYCH ---
Social Work Progress Note Faxed Referral(s) Referred To: OPS Transition of Care Documents sent: Health Summary Faxed to: [facility] Fax #: [phone] Faxed by: Nanda Castaneda Date faxed: 11/23/17 Time Faxed: [phone]
== END 2017-11-20 17:48 | DRG 885 ==
LOC: ERH 15:18 → ERHI 19:27 → CP SOUTH 19:27 → ENTRNSPT 20:09 → EDTRNSPTSTS 20:14 → CMPTRNSPT 20:23 → CP SOUTH 23:55 → ENRESERV 23:59 → CP SOUTH 11-20 17:48
PROVIDERS: Physician Assistant Medical
DX: F31.9 Bipolar disorder, unspecified (principal); G35 Multiple sclerosis; N19 Unspecified kidney failure
CPT/HCPCS: 80307; 81003; G0463; G0480; J3490

== ENCOUNTER 2017-12-21 05:09 | Inpatient (IN) | payer OTHER, MEDICARE ==
[~2017-12-21] VITALS: Ht 162.6 cm; Wt 80.5 kg
[~2017-12-21 05:09] MED LIST changes: +LAMOTRIGINE100 M2 PO; +LEVOTHYROXINE137 MCG PO; +RISPERDAL0.5 M1 PO; +RISPERIDONE1 M1 PO; +SEROQUEL25 M1 PO; +SEROQUEL50 M1 PO; +TIMOLOL MALEATE5 M4 OD
--- NOTE | 2017-12-21 05:29 | ED PSYCHIATRIC COMPLAINT ---
See Addendum History of Present Illness General Chief Complaint: General Adult Stated Complaint: ANXIOUS Source: patient, EMS Exam Limitations: no limitations Vital Signs & Intake/Output Vital Signs & Intake/Output Vital Signs Date Time Temp Pulse Resp B/P B/P Pulse O2 O2 Flow FiO2 Mean Ox Delivery Rate 12/22 1512 98.7 76 160/101 100 Room Air 12/22 1226 98.0 65 17 154/89 100 Room Air 12/22 0827 98.1 70 20 138/96 100 12/22 0610 98.0 86 18 147/93 100 Room Air 12/22 0052 97.5 70 20 131/73 99 Room Air 12/21 2000 98.8 76 18 139/82 97 Room Air 12/21 1622 97.9 73 18 138/74 97 Room Air Allergies Coded Allergies: rituximab (From RITUXAN) (Intermediate, ANAPHYLAXIS 09/09/16) methylprednisolone (PER PT CANT TAKE MAKES HER MANIC 09/09/16) prednisone (PER PT CANT TAKE MAKES HER MANIC 09/09/16) Uncoded Allergies: STEROIDS (Intermediate, "MAKE ME MANIC" PER PT CAN NOT TAKE ANY STEROIDS ) Triage Note: PT [facility]IB[facility] FROM HOME WITH C/O FEELING ANXIOUS. STATES SHE WAS HERE FOR SAME 3 WEEKS AGO, MEDS WERE ADJUSTED, AND NOT HELPING. DENIES SI/HI DR AGUILAR AT BEDSIDE FOR EVAL. Triage Nurses Notes Reviewed? yes Onset: Gradual Duration: week(s): Timing: recent history Severity: moderate Associated Symptoms: anxiety HPI: 67 Yo woman h/o bipolar disorder, recently on depakote x 3 weeks, presents with increased anxiety. She shares, "I was changed from my lithium to depakote... but now I'm really anxious... I can't sleep... I have lots of dreams.... I think maybe my depakote level is too high." She notes increased anxiety and flight of ideas. She denies SI/HI/hallucinations. She notes that she has been taking her depakote as directed. She is otherwise well. (Lauren CESAR,Trent Bryant) Reconcile Medications Albuterol Sulfate (Ventolin Hfa) 90 MCG HFA.AER.AD 2 PUF INH Q4P PRN SHORTNESS OF BREATH Calcitriol 0.25 MCG CAPSULE 0.5 MCG PO BID hypoparathyroidism Divalproex Sodium 500 MG TABLET.DR 500 MG PO 0800,1999 mood stabilization Ergocalciferol (Vitamin D2) (Vitamin D2) 50,000 UNIT CAPSULE 1 CAP PO Tu VITAMIN SUPPORT (Reported) Lamotrigine (Lamictal) 100 MG TABLET 1 TAB PO QPM MENTAL HEALTH (Reported) Levothyroxine Sodium 137 MCG TABLET 1 TAB PO DAILY AC hypothyroidism Pilocarpine HCl 2 % DROPS 1 DROP OD TID RIGHT EYE - GLAUCOMA (Reported) Quetiapine Fumarate 100 MG TABLET 1 MG PO AT BEDTIME bipolar disorder Timolol Maleate 0.5 % DROPS 1 GTT OD DAILY glaucoma (Michelle CESAR,Omero) Past History Travel History Traveled to [place] past 21 day No Medical History Any Pertinent Medical History? 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 No (Lauren CESAR,Trent Bryant) Review of Systems Review of Systems Constitutional: Denies: see HPI. (Trent Aguilar MD) Physical Exam Physical Exam General Appearance: well developed/nourished Neurological/Psychiatric: awake, anxious Comments: Review of Systems - except as otherwise noted in HPI Review of Systems Constitutional:no symptoms. EENTM:no symptoms. Respiratory:no symptoms. Cardiovascular:no symptoms. GI:no symptoms. Genitourinary:no symptoms. Musculoskeletal:no symptoms. Skin:no symptoms. Neurological/Psychological:no symptoms. Hematologic/Endocrine:no symptoms. Immunologic/Allergic:no symptoms. All Other Systems: Reviewed and Negative Physical Exam Physical Exam General Appearance: well developed/nourished, no apparent distress Head: atraumatic, normal appearance Eyes: Bilateral: normal appearance. Ears, Nose, Throat: normal pharynx, normal ENT inspection Neck: normal inspection, supple, full range of motion Respiratory: normal breath sounds, chest non-tender, no respiratory distress, quiet respiration, lungs clear Cardiovascular: regular rate/rhythm Gastrointestinal: normal bowel sounds, soft, non-tender, no organomegaly Back: normal inspection, normal range of motion Extremities: normal inspection, normal capillary refill, normal range of motion, no edema Neurologic/Psych: no motor/sensory deficits, awake, alert, oriented x 3, anxious with mild tremor Skin: intact, normal color, warm/dry SAD PERSONS Done? patient not suicidal (Lauren CESAR,Trent Bryant) Progress Differential Diagnosis: bipolar vs anxiety disorder vs other. Plan of Care: Orders Procedure Date/time Status Continuous Observation Monitor 12/22 1900 Active Admit to inpatient psych 12/22 1516 Active Continuous Observation Monitor 12/22 1500 Active Continuous Observation Monitor 12/22 1100 Active Continuous Observation Monitor 12/22 0700 Active Intake & Output 12/21 0513 Active Current Medications Sig/Doreen Start time Last Medication Dose Stop Time Status Admin Calcitriol 0.5 MCG BID 12/21 2099 UNVr 12/22 (Rocaltrol 0.25 Mcg 0850 Cap) Lamotrigine 100 MG QPM 12/21 2099 UNVr 12/21 (LaMICtal) 2041 Quetiapine Fumarate 1 MG AT BEDTIME 12/21 2100 CAN (Seroquel) Quetiapine Fumarate 50 MG QPM 12/21 2100 UNVr 12/21 (SEROquel) 2041 Divalproex Sodium 500 MG 0800,2000 12/22 1999 UNVr 12/22 (Depakote) 0850 Albuterol Sulfate 2 PUF Q4P PRN 12/21 1730 AC (Ventolin) Lorazepam 1 MG TID PRN 12/21 1730 AC 12/22 (Ativan) 1332 Timolol Maleate 1 GTT DAILY 12/21 172 UNVr 12/22 (Timoptic) 0850 Levothyroxine Sodium 0.137 MG DAILY AC 12/21 1720 UNVr 12/22 (Synthroid) 0611 Pilocarpine 1 GTT TID 12/21 172 UNVr 12/22 1332 Hand-Off Endorsed To: Omero Martinez MD Endorsed Time: 699 Pending: consult, labs (Trent Aguilar MD) Hand-Off Endorsed To: Pedro Odonnell MD Endorsed Time: 1903 Pending: other (bed search) (Omero Martinez MD) Comments: 12/21/2017 7:45:17 PM patient signed out to me by Dr. Martinez at shift place change roof bolter. 12/21/2017 11:11:07 PM patient signed out to Dr. Carreon at shift place change roof bolter. 12/22/2017 3:53:20 PM patient was not signed out to me at shift place change roof bolter given that she was admitted to inpatient psychiatry. However she did have a minor fall from standing just a few moments ago. She offers no complaint currently. She is visibly anxious and upset and comments "I can't stand it" (patient refers to being here in the emergency department). I have repeatedly offered sedative but patient declined. (Pedro Odonnell MD) Hand-Off Endorsed To: Omero Martinez MD Endorsed Time: 699 Pending: other (Myke Carreon MD) Departure Departure Disposition: STILL A PATIENT Condition: Stable Clinical Impression Primary Impression: Bipolar disorder Referrals: Romain Ambriz MD (PCP/Family) Departure Forms: Customer Survey General Discharge Information Comments 12/21/17, 6:30am... pt feeling better after ativan... labs pending... pt to see crises this am. pt to be signed out to dr. martinez at 7am. (Trent Aguilar MD) Endorsed To: Omero Martinez MD Endorsed Time: 699 Pending: other (Myke Carreon MD) Departure Departure Disposition: STILL A PATIENT Condition: Stable Clinical Impression Primary Impression: Bipolar disorder Referrals: Romain Ambriz MD (PCP/Family) Departure Forms: Customer Survey General Discharge Information Comments 12/21/17, 6:30am... pt feeling better after ativan... labs pending... pt to see crises this am. pt to be signed out to dr. martinez at 7am. (Trent Aguilar MD)
[2017-12-21 06:02] LABS: ABSOLUTE BASOPHIL COUNT 0 /CUMM (0.0-0.2); ABSOLUTE EOSINOPHIL COUNT 0.2 /CUMM (0.0-0.7); ABSOLUTE GRANULOCYTE CT 2.8 /CUMM (1.4-6.5); ABSOLUTE LYMPH COUNT 1.5 /CUMM (1.2-3.4); ABSOLUTE MONOCYTE COUNT 0.5 /CUMM (0.10-0.60); BASOPHIL % 0.7 % (0.0-2.0); EOSINOPHIL % 3.4 % (0-5); GRANULOCYTE % 56.2 % (42.2-75.2); HEMATOCRIT 36.3 % (37-47); MEAN CORPUSCULAR HGB 30.3 PG (27.0-31.0); MEAN CORPUSCULAR HGB CONC 34.2 G/DL (33.0-37.0); MEAN CORPUSCULAR VOLUME 88.6 FL (81.0-99.0); PLATELET COUNT 232 /CUMM (130-400); RBC DISTRIBUTION WIDTH 14.2 % (11.5-14.5); RED BLOOD CELL CT 4.09 /CUMM (4.20-5.40); WHITE BLOOD CELL COUNT 5.1 /CUMM (4.8-10.8)
[2017-12-21 06:18] LABS: LITHIUM < 0.2 mmol/L (0.6-1.2)
[2017-12-21] MEDS ORDERED: LAMICTAL100 M2 PO (08:07)
[2017-12-21] MEDS ORDERED: VITAMIN D250000 UNIT PO (08:11)
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
[2017-12-22 19:35] VITALS: BP 133/68
[2017-12-23 08:31] VITALS: BP 131/62
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
--- NOTE | 2017-12-23 09:39 | History & Physical ---
General Information and HPI MD Statement: I have seen and personally examined STACY GIBBS and documented this H&P. The patient is a 67 year old F who presented with a patient stated chief complaint of "I feel very anxious". Source of Information: patient, family, old records Exam Limitations: no limitations History of Present Illness: 67-year-old white female with history of MS states she has been more anxious stated that she was changed from her lithium to Depakote but now cord and bridging anxious". Patient is unable to sleep has a lot of dreams, flight of ideas taking her medications as directed brought her in by ambulance for evaluation. Allergies/Medications Allergies: Coded Allergies: rituximab (From RITUXAN) (Intermediate, ANAPHYLAXIS 09/09/16) methylprednisolone (PER PT CANT TAKE MAKES HER MANIC 09/09/16) prednisone (PER PT CANT TAKE MAKES HER MANIC 09/09/16) Uncoded Allergies: STEROIDS (Intermediate, "MAKE ME MANIC" PER PT CAN NOT TAKE ANY STEROIDS ) Home Med list Albuterol Sulfate (Ventolin Hfa) 90 MCG HFA.AER.AD 2 PUF INH Q4P PRN SHORTNESS OF BREATH Calcitriol 0.25 MCG CAPSULE 0.5 MCG PO BID hypoparathyroidism Divalproex Sodium 500 MG TABLET.DR 500 MG PO 0800,2000 mood stabilization Ergocalciferol (Vitamin D2) (Vitamin D2) 50,000 UNIT CAPSULE 1 CAP PO Tu VITAMIN SUPPORT (Reported) Lamotrigine (Lamictal) 100 MG TABLET 1 TAB PO QPM MENTAL HEALTH (Reported) Levothyroxine Sodium 137 MCG TABLET 1 TAB PO DAILY AC hypothyroidism Pilocarpine HCl 2 % DROPS 1 DROP OD TID RIGHT EYE - GLAUCOMA (Reported) Quetiapine Fumarate 100 MG TABLET 1 MG PO AT BEDTIME bipolar disorder Timolol Maleate 0.5 % DROPS 1 GTT OD DAILY glaucoma Compliance With Home Meds: GOOD Past History Travel History Traveled to [place] past 21 day No Medical History Neurological: multiple sclerosis EENT: cataracts, glaucoma Cardiovascular: NONE Respiratory: NONE Gastrointestinal: NONE Hepatic: NONE Renal: NONE (Stage III), chronic kidney disease Musculoskeletal: NONE Psychiatric: bipolar disease, psychosis Endocrine: hyperparathyroidism, hypothyroidism Blood Disorders: anemia Cancer(s): NONE 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 spouse Services at Home: None ETOH Use: denies use Functional Ability ADLs Needs Assist: dressing, toileting. IADLs Unknown: shopping, housework, finances, food prep. Review of Systems Review of Systems Constitutional: Reports: see HPI. Exam & Diagnostic Data Last 24 Hrs of Vital Signs/I&O Vital Signs Date Time Temp Pulse Resp B/P B/P Pulse O2 O2 Flow FiO2 Mean Ox Delivery Rate 12/23 0831 97.2 93 131/62 12/22 1935 97.1 92 133/68 12/22 1854 98.1 72 18 151/88 100 Room Air 12/22 1722 98.3 74 135/80 98 Room Air 12/22 1512 98.7 76 160/101 100 Room Air 12/22 1226 98.0 65 17 154/89 100 Room Air Physical Exam General Appearance Alert, Oriented X3, Cooperative, No Acute Distress Skin No Rashes HEENT PERRLA, EOMI Neck Supple, No JVD, No thryomegaly Lymphatic Axillary nl, Cervical nl Cardiovascular Regular Rate, No Murmurs Lungs Clear to Auscultation, Normal Air Movement Abdomen Normal Bowel Sounds, Soft, No Tenderness Neurological Exam Findings: Normal Speech, Sensation Intact (gait and strength not tested p) Cranial Nerves II through XII: Not tested Extremities No Cyanosis, No Edema Vascular Normal Pulses, Pulses Symmetrical Last 24 Hrs of Labs/Harry: Laboratory Tests 12/21/17 0729: Urine Opiates Screen < 100, Methadone Screen < 40, Barbiturate Screen < 60, Ur Phencyclidine Scrn < 6.00, Amphetamines Screen < 100, U Benzodiazepines Scrn < 85, Urine Cocaine Screen < 50, Urine Cannabis Screen < 5.00 12/21/17 0542: Anion Gap 11, Estimated GFR 32 L, BUN/Creatinine Ratio 18.8, Glucose 91, Calcium 9.0, Total Bilirubin 0.4, AST 17, ALT 16, Alkaline Phosphatase 42, Total Protein 6.2 L, Albumin 3.3 L, Globulin 2.9, Albumin/Globulin Ratio 1.1, CBC w Diff NO MAN DIFF REQ, RBC 4.09 L, MCV 88.6, MCH 30.3, MCHC 34.2, RDW 14.2, MPV 9.0, Gran % 56.2, Lymphocytes % 29.6, Monocytes % 10.1 H, Eosinophils % 3.4, Basophils % 0.7, Absolute Granulocytes 2.8, Absolute Lymphocytes 1.5, Absolute Monocytes 0.5, Absolute Eosinophils 0.2, Absolute Basophils 0, Valproic Acid 74.1, [place] < 0.2 L, Serum Alcohol < 10.0 Assessment/Plan As Ranked By This Provider Problem List: 1. Bipolar disorder 2. Suicidal ideation 3. Multiple sclerosis Miscellaneous Miscellaneous Documentation Attending Case Discussed With: Dipak Mack MD Primary Care Physician: Pb CESAR,Romain Parson Patient sees these Specialists Psychiatry Level of Patient Care: [facility] Consults Needed: Consulting Specialty: Psychiatry Consulting Physician: Dr. Pringle Reason for Consult: increased anxiety
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
[2017-12-23 16:16] VITALS: BP 129/77
[2017-12-23 19:34] VITALS: BP 131/78
--- NOTE | 2017-12-24 02:48 | CP SOUTH PROGRESS NOTE PSYCH ---
Psych (Inpt) Progress Note Progress Note Vital Signs Date Time Temp Pulse Resp B/P B/P O2 12/24 1211 74 124/66 12/24 0729 96.4 89 116/75 12/23 1934 96.9 89 131/78 12/23 1616 97 129/77 I met with the patient and her in the presence of Nanda Castaneda LCSW, medical student and social work marketing summer intern Mental Status Examination: The patient was alert and oriented to time place and person. She was not irritable. She showed slightly reduced psychomotor activity (may be from the effects of the Ativan in the past 24 hours). She insists that she is in a better mood and that she is ready for discharge. She denied having any wishes of or thinking of suicide in the past 24 hours. She denied having any violent thoughts or thoughts of homicide. There were no abnormal or bizarre behaviors on the unit. The patient was talking at a normal rate, she was not pressured, and she was not slurred. She reported that her anxiety and agitation have declined significantly Denied hallucinations, denied feeling paranoid, there were no delusions during the brief interview Today, the patient showed good attention and concentration and there was no evidence of short-term memory deficits. Assessment: 67-year-old white we female with multiple sclerosis, kidney failure, hypothyroidism and bipolar 1 and presented to the emergency room with high anxiety and wishing this/thinking of suicide. The patient seems to have made significant improvement since his or her admission to the inpatient psychiatric unit. She has been denying thoughts of suicide she has been denying violent thoughts or thoughts of homicide and she has been showing good behavioral control. Diagnosis(es): Bipolar 1 mixed episode Treatment Plan: Discharge home the patient's Ativan will be switched to Klonopin 1.5 mg at bedtime for the foreseeable future Bipolar 1 mixed episode - Initial Tx Plan for Active Psych & Medical Conditions Treatment Plan: Inpatient psychiatric care with safety checks every 15 minutes Continue same medications as per the outpatient psychiatric Department Change as needed trazodone and as needed gabapentin to Ativan 1 mg every 4 hours as needed for anxiety or insomnia or agitation and Reevaluate daily
[2017-12-24 07:29] VITALS: BP 116/75
[2017-12-24] MEDS ORDERED: KLONOPIN1 M1 PO (11:25)
--- NOTE | 2017-12-24 11:27 | Patient Discharge Instructions ---
Psych Discharge Inst General Discharge Information Reason for Admission: high anxiety and irritability, wishing Psy Discharge Primary Diag+ Bipolar Diosrder Summary Tests/Major Procedures Lab Valproic Acid 74.1 ug/mL 12/21/17 0542 Studies Pending at DC: None Patient Instructions Contact Information Your Psychiatrist on [facility] was Dipak Mack MD * If you are experiencing an emergency related to this hospitalization, please call [phone] to contact the treating psychiatrist or the psychiatrist-on- call. * To Request a copy of your medical records, please contact the Medical Records Department at [phone]. * To request results of studies pending at the time of discharge, please call [phone]. * Continue your Medications until directed to stop by your Healthcare provider. General Medication Information Please continue to take your new medications and your continued home medications , unless otherwise indicated on your discharge medication list, or unless directed by your MD or PRESSING MACHINE OPERATOR to stop them. Special Instructions Diet Regular Activity As Tolerated - Tobacco Use Treatment Offered Post DC Medications Offered: Not Applicable Post DC Tobacco Treatment Plan: Not Applicable - EtOH/Drug Use D/O Treatment Offered Post DC Medications Offered: NA-No EtOH/Drug Use D/O Post DC EtOH/SubAbuse TX Plan: NA-No EtOH/Drug Use D/O Metabolic Screening Patient on a neuroleptic(s) . Enter below results for Hemoglobin A1C, and lipid panel if obtained during the last 365 days. BMI: 29.4 Blood Pressure: 116/75 Laboratory Results From [facility] (If applicable): Lab Amylase 112 U/L H 11/16/17 1609 Cholesterol 216 MG/DL H 06/09/17 1127 Cholesterol/HDL Ratio 4 % 06/09/17 1127 HDL Cholesterol 52 mg/dL 06/09/17 1127 Hemoglobin A1c 4.5 % 02/27/17 1035 LDL Cholesterol, Calc 144 mg/dL H 06/09/17 1127 Triglycerides 103 mg/dL 06/09/17 1127 Advance Directives Does the Patient have Medical Advance Directives No/Refused further info Does Pt have Psychiatric Advance Directives? No/Refused further info Does Patient have a Designated Surrogate Decision Maker: No Information About Psychiatric Advance Directives Provided? Refused Discharge Plan Post Hospital Treatment Plan: [facility]-OPS
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
[2017-12-24 12:11] VITALS: BP 124/66
--- NOTE | 2017-12-24 12:57 | DISCHARGE SUMMARY REPORT-PSYCH ---
Visit Information Visit Dates/Diagnosis' Admission Date: 12/22/17 Discharge Date: 12/24/17 Reason for Admission: high anxiety and irritability, wishing Psy Discharge Primary Diag: Bipolar Diosrder Hospital Course Course Allergies: Coded Allergies: rituximab (From RITUXAN) (Intermediate, ANAPHYLAXIS 09/09/16) methylprednisolone (PER PT CANT TAKE MAKES HER MANIC 09/09/16) prednisone (PER PT CANT TAKE MAKES HER MANIC 09/09/16) Uncoded Allergies: STEROIDS (Intermediate, "MAKE ME MANIC" PER PT CAN NOT TAKE ANY STEROIDS ) Hospital Course/TX Response: 12/24/2017: Vital Signs Date Time Temp Pulse Resp B/P B/P O2 12/24 1211 74 124/66 12/24 0729 96.4 89 116/75 12/23 1934 96.9 89 131/78 12/23 1616 97 129/77 I met with the patient and her in the presence of Nanda Castaneda LCSW, medical student and social work international account manager Mental Status Examination: The patient was alert and oriented to time place and person. She was not irritable. She showed slightly reduced psychomotor activity (may be from the effects of the Ativan in the past 24 hours). She insists that she is in a better mood and that she is ready for discharge. She denied having any wishes of or thinking of suicide in the past 24 hours. She denied having any violent thoughts or thoughts of homicide. There were no abnormal or bizarre behaviors on the unit. The patient was talking at a normal rate, she was not pressured, and she was not slurred. She reported that her anxiety and agitation have declined significantly Denied hallucinations, denied feeling paranoid, there were no delusions during the brief interview Today, the patient showed good attention and concentration and there was no evidence of short-term memory deficits. Assessment: 67-year-old white we female with multiple sclerosis, kidney failure, hypothyroidism and bipolar 1 and presented to the emergency room with high anxiety and wishing this/thinking of suicide. The patient seems to have made significant improvement since his or her admission to the inpatient psychiatric unit. She has been denying thoughts of suicide she has been denying violent thoughts or thoughts of homicide and she has been showing good behavioral control. Diagnosis(es): Bipolar 1 mixed episode Treatment Plan: Discharge home the patient's Ativan will be switched to Klonopin 1.5 mg at bedtime for the foreseeable future Discharge HBIPS - Tobacco Use Treatment Offered - EtOH/Drug Use D/O Treatment Offered Metabolic Screening - Screen if on a Neuroleptic Medication - Metabolic screening should include: - Blood Pressure, BMI, Glucose or Hgb A1c, & a - Lipid profile from within the past 365 days. Discharge Instructions General Discharge Information Discharge Diet Regular Discharge Activity As Tolerated Referrals Ordered Referrals Provider Referral 01/05/18 For Groups: Outpatient Psychiatry [facility] Outpatient Psychiatry Intake 01/05/18 8am [address] [id number] Provider Referral 01/11/18 For Groups: Outpatient Psychiatry [facility] appt. with Rand Finesse AC 01/11/18 3:30pm [address] [phone] Provider Referral For Groups: [[facility]] [facility] for individual therapy [phone] Prescriptions Continue taking these medications: Pilocarpine HCl (Pilocarpine HCl) 2 % DROPS 1 DROP Right Eye THREE TIMES DAILY Qty = 15 Comments: Time:Last Taken 12/24/17 Time: 1315 Albuterol Sulfate (Ventolin Hfa) 90 MCG HFA.AER.AD 2 Puff Inhale through mouth EVERY 4 HOURS NEEDED as needed for SHORTNESS OF BREATH Qty = 1 Comments: LAST TAKEN: NOT GIVEN WHILE IN HOSPITAL Quetiapine Fumarate (Quetiapine Fumarate) 100 MG TABLET 1 Milligram ORAL AT BEDTIME Qty = 14 Comments: Last Taken:12/23/17 Time:7 Timolol Maleate (Timolol Maleate) 0.5 % DROPS 1 Drop Right Eye DAILY Qty = 1 Comments: Last Taken:12/24/17 Time:0734 Levothyroxine Sodium (Levothyroxine Sodium) 137 MCG TABLET 1 Tablet ORAL DAILY BEFORE BREAKFAST Qty = 14 Comments: Last Taken:12/24/17 Time:0636 Calcitriol (Calcitriol) 0.25 MCG CAPSULE 0.5 Microgram ORAL TWICE DAILY Qty = 28 Comments: Last Taken:12/24/17 Time:0733 Divalproex Sodium (Divalproex Sodium) 500 MG TABLET.DR 500 Milligram ORAL 0800,1999 Qty = 28 Comments: Last Taken: 12/24/17 Time: 0733 Lamotrigine (Lamictal) 100 MG TABLET 1 Tablet ORAL Every night Comments: Last Taken:12/23/17 Time:2126 Ergocalciferol (Vitamin D2) (Vitamin D2) 50,000 UNIT CAPSULE 1 Capsule ORAL Tu Comments: Last Taken:12/22/17 Time:1756 Start taking the following new medications: Clonazepam (Klonopin) 1 MG TABLET 1.5 Tablet ORAL TAKE AT BEDTIME Qty = 30 No Refills Comments: Last Taken:NOT TAKEN IN HOSPITAL Studies Pending at Discharge None
--- NOTE | 2017-12-24 16:26 | SOCIAL WORKER PROG NOTE PSYCH ---
Social Work Progress Note Faxed Referral(s) Referred To: OPS Transition of Care Documents sent: Health Summary Faxed to: [facility] Fax #: [phone] Faxed by: Nanda Castaneda Date faxed: 12/24/17 Time Faxed: [phone]
== END 2017-12-24 14:00 | DRG 885 ==
LOC: ERH 05:09 → CP SOUTH 12-22 15:16 → ERHI 12-22 15:16 → ENTRNSPT 12-22 18:47 → EDTRNSPT 12-22 18:54 → EDTRNSPTSTS 12-22 18:54 → CP SOUTH 12-22 19:06 → CMPTRNSPT 12-22 19:16 → CP SOUTH 12-22 19:17
PROVIDERS: Pediatrics
DX: F31.9 Bipolar disorder, unspecified (principal)
CPT/HCPCS: 80307; 96372; G0463; G0480; J0515; J1630; J3490